=== PATIENT | male | born 1965 | race Caucasian/White ===

== ENCOUNTER 2016-08-04 21:56 | Emergency (ER) | payer BC, OTHER ==
[2016-08-04] MEDS ORDERED: MORPHINE 4 MG/ML 1ML SYRINGE As Ordered ONE (22:32)
[2016-08-04] MEDS ORDERED: ONDANSETRON 4MG/2ML VIAL (J2405) As Ordered ONE (22:32)
[2016-08-04] MEDS ORDERED: ASPIRIN 81 MG CHEW TABLET As Ordered ONE (22:32)
[2016-08-04 22:44] LABS: BASO # 0.1 K/mm3 (0.0-0.2); BASO % 1.1 % (0.0-1.0); EOS # 0.2 K/mm3 (0.0-0.50); LARGE UNSTAINED CELL # 0.3 K/mm3 (0.0-0.4); LARGE UNSTAINED CELL % 3.5 % (0.0-4.0); LYMPH # 2.4 K/mm3 (1.5-4.5); LYMPH % 29.7 % (24.0-44.0); MEAN CORPUSCULAR HEMOGLOBIN 30.1 pg (27.0-33.0); MEAN CORPUSCULAR HGB CONC 33.4 g/dl (32.0-36.5); MEAN CORPUSCULAR VOLUME 90.2 fl (80.0-96.0); MONO # 0.5 K/mm3 (0.0-0.8); NEUTROPHILS % 55.6 % (36.0-66.0); PLATELET COUNT, AUTOMATED 177 k/mm3 (150-450); RED CELL DISTRIBUTION WIDTH 13.9 % (11.5-14.5); WHITE BLOOD COUNT 7.2 K/mm3 (4.0-10.0)
[2016-08-04 23:09] LABS: ANION GAP 6 MEQ/L (8-16); BLOOD UREA NITROGEN 13 MG/DL (7-18); CALCIUM LEVEL 8.5 MG/DL (8.5-10.1); CARBON DIOXIDE LEVEL 31 MEQ/L (21-32); CHLORIDE LEVEL 102 MEQ/L (98-107); CREATININE FOR GFR 0.95 MG/DL (0.70-1.30); GLOMERULAR FILTRATION RATE > 60.0 (>56); GLUCOSE, FASTING 95 MG/DL (70-105); POTASSIUM SERUM 3.7 MEQ/L (3.5-5.1); SODIUM LEVEL 139 MEQ/L (136-145)
[2016-08-05] MEDS ORDERED: NITROGLYCERIN 0.4 MG SUBL TABLET As Ordered ONE (01:39)
--- NOTE | 2016-08-05 01:39 | REP ---
Clinical: Chest pain . Comparison: 04/19/2016 . Technique: PA and lateral. Findings: The mediastinum and cardiac silhouette are normal. The lung dior are clear and without acute consolidation, effusion, or pneumothorax. The skeletal structures are intact and normal. Impression: 1. No acute cardiopulmonary process. Signed by Horace Thompson MD 08/05/2016 01:30 A
[2016-08-05] MEDS ORDERED: ISOVUE-370 76% 100ML VIAL (Q9967) As Ordered ONE (01:45)
[2016-08-05] MEDS ORDERED: HYDROmorphone HCL 1 MG/ML SYRINGE (J1170) As Ordered ONE (02:13)
--- NOTE | 2016-08-05 02:30 | REPUSA ---
CLINICAL INDICATION: Evaluate for pulmonary embolism. COMPARISON: CT chest 04/25/2016. TECHNIQUE: CT pulmonary angiogram was performed with intravenous contrast. 3D/MIPS technique was util ized with multiplanar reconstructions in sagittal and coronal projections. FINDINGS: LINES AND DEVICES: None PULMONARY ARTERY: The pulmonary artery is normal in caliber. There is no evidence of filling defects in the main, right or left main, lobar, segmental, and visualized subsegmental pulmonary arteries. AORTA: Normal in caliber with no evidence of gross dissection or aneurysm. LOWER NECK/THYROID: Thyroid gland is unremarkable. No mass, suspicious cystic lesion, or enlarged carmen nopathy. AXILLA/HILUM/MEDIASTINUM : No enlarged adenopathy, mass, suspicious cystic lesion, or fluid collectio n. HEART: Heart is normal in size without pericardial effusion. AIRWAYS, LUNGS AND PLEURA: No acute infiltrate, effusion, mass, suspicious nodule, or pneumothorax. C entral and visualized peripheral airways are patent. UPPER ABDOMEN: Visualized upper abdominal organs are unremarkable. OSSEOUS STRUCTURES: No fracture or suspicious lesion SOFT TISSUES AND THORACIC WALL : No soft tissue abnormality or hernia. OTHER: No other significant abnormalities. IMPRESSION: No pulmonary embolism.
--- NOTE | 2016-08-05 05:45 | EDDOCDS ---
Physician Documentation [facility] Name: Jose Francisco Velez Age: 50 yrs Sex: Male : 1965 Arrival Date: 08/04/2016 Time: 21:56 Bed 17 Private MD: David Jaimes FPA Disposition: 08/05/16 05:23 Discharged to Home/Self Care. Impression: Chest pain, unspecified. - Condition is Stable. - Discharge Instructions: Panic Attacks, Nonspecific Chest Pain, Generalized Anxiety Disorder, Panic Attacks, [id number]. - Prescriptions for Xanax 0.25 mg Oral Tablet - take 1 tablet by ORAL route every 8 hours As needed MDD: 3 tabs; 20 tablet. - Medication Reconciliation, Local Pharmacy Hours form. - Follow up: David Jaimes; When: Call to arrange an appointment; Reason: Continuance of care. - Problem is an acute exacerbation. - Symptoms have improved. Historical: - Allergies: No known drug Allergies; - Home Meds: 1. aspirin 81 mg Oral TbEC 1 tab once daily (Last dose: 08/04/2016 13:00) 2. Crestor 5 mg Oral tab 1 tab once daily 3. Prilosec 20 mg Oral cpDR 1 cap once daily 4. med for ulcer 5. med for axiety 6. med for angina - PMHx: "spot" between lungs; brain bleed; GERD; Hypercholesterolemia; angina; Anxiety; Ulcers; - PSHx: Vasectomy; Hernia repair; Endoscopy, Upper; - Social history: Smoking status: Patient states was never smoker of tobacco. No barriers to communication noted, The patient speaks fluent [place], Speaks appropriately for age. - Family history: No immediate family members are acutely ill. - : The pt / caregiver states he / she is not on anticoagulants. Home medication list is obtained from the patient. - Exposure Risk Screening:: None identified. Vital Signs: 08/04 21:58 BP 161 / 86; Pulse 87; Resp 18 S; Temp 98.0(O); Pulse Ox 97% on R/A; Weight 108.86 kg / gr2 240 lbs (R); Height 5 ft. 8 in. (172.72 cm) (R); Pain 6/10; 22:32 BP 158 / 102 (auto/); nn1 22:33 Pulse 76 MON; Pulse Ox 96% ; nn1 22:47 BP 155 / 97 (auto/); nn1 22:48 Pulse 74 MON; Pulse Ox 96% ; nn1 23:02 BP 147 / 91 (auto/); nn1 23:03 Pulse 70 MON; Pulse Ox 97% ; nn1 23:17 BP 151 / 93 (auto/); nn1 23:18 Pulse 64 MON; Pulse Ox 96% ; nn1 23:32 BP 153 / 96 (auto/); nn1 23:33 Pulse 66 MON; Pulse Ox 94% ; nn1 23:47 BP 140 / 88 (auto/); nn1 23:48 Pulse 64 MON; Pulse Ox 94% ; 08/05 00:02 BP 142 / 88 (auto/); nn 00:03 Pulse 62 MON; Pulse Ox 94% ; nn1 00:17 BP 143 / 84 (auto/); nn1 00:18 Pulse 64 MON; Pulse Ox 94% ; nn1 00:32 BP 148 / 83 (auto/); nn1 00:33 Pulse 64 MON; Pulse Ox 96% ; nn1 00:47 BP 147 / 82 (auto/); nn1 00:48 Pulse 68 MON; Pulse Ox 94% ; nn1 01:02 BP 148 / 83 (auto/); nn1 01:03 Pulse 66 MON; Pulse Ox 93% ; nn1 01:17 BP 143 / 86 (auto/); nn1 01:18 Pulse 58 MON; Pulse Ox 93% ; nn1 01:32 BP 144 / 87 (auto/); nn1 01:33 Pulse 60 MON; Pulse Ox 96% ; nn1 01:45 BP 153 / 91 (auto/); nn1 01:47 BP 141 / 85 (auto/); nn1 01:47 Pulse 64 MON; Pulse Ox 94% ; nn1 01:48 Pulse 64 MON; Pulse Ox 94% ; nn1 01:48 BP 141 / 85; Pulse 71; nn1 01:55 BP 90 / 54 (auto/); nn1 01:55 Pulse 78 MON; Pulse Ox 93% ; nn1 01:58 BP 90 / 54; Pulse 76; nn1 02:08 Pulse Ox 93% ; nn1 02:09 BP 165 / 79 (auto/); nn1 02:10 BP 146 / 66 (auto/); nn1 02:10 Pulse 74 MON; Pulse Ox 94% ; nn1 02:17 BP 133 / 59 (auto/); nn1 02:17 Pulse 76 MON; Pulse Ox 95% ; nn1 02:32 BP 122 / 63 (auto/); nn1 02:33 Pulse 60 MON; Pulse Ox 92% ; nn1 02:47 BP 129 / 64 (auto/); nn1 02:48 Pulse 56 MON; Pulse Ox 92% ; nn1 03:02 BP 126 / 69 (auto/); nn1 03:02 Pulse 90 MON; Pulse Ox 92% ; nn1 03:17 BP 130 / 77 (auto/); nn1 03:18 Pulse 56 MON; Pulse Ox 92% ; nn1 03:32 BP 134 / 76 (auto/); nn1 03:33 Pulse 56 MON; Pulse Ox 93% ; nn1 03:47 BP 126 / 72 (auto/); nn1 03:48 Pulse 56 MON; Pulse Ox 93% ; nn1 04:02 BP 132 / 79 (auto/); nn1 04:03 Pulse 54 MON; Pulse Ox 94% ; nn1 04:17 BP 125 / 76 (auto/); nn1 04:18 Pulse 52 MON; Pulse Ox 95% ; nn1 04:21 Temp 98.0(TE); mdr 05:41 BP 134 / 84; Pulse 86; Resp 18; Temp 98.0; Pulse Ox 94% on R/A; Pain 2/10; nn1 08/04 21:58 Body Mass Index 36.49 (108.86 kg, 172.72 cm) gr2 MDM: 08/04 22:07 ECG WITH READING ER PHYS+CARDIAG ordered. EDMS 22:27 Aspirin Chewable Tablet 324 mg PO once ordered. mm11 22:27 Power Plant Assistant/Pulse Ox/q 30 min VS ordered. mm11 22:27 IV Saline Lock ordered. mm11 22:27 Rhythm Strip to chart ordered. mm11 22:27 Undress patient appropriately for examination ordered. mm11 22:27 morphine 4 mg IVP every 30 minutes; Document pain score/vitals after each dose (Hold if mm11 SBP < 90mmHg) x2 ordered. 22:27 Ondansetron 4 mg IVP once ordered. mm11 22:28 Basic Metabolic Profile Ordered. EDMS 22:28 CBC with Diff Ordered. EDMS 22:28 Cardiac Injury Profile Ordered. EDMS 22:28 D-Dimer Quant Ordered. EDMS 22:28 Troponin Ordered. EDMS 22:30 Chest, 2 View (pa\\E\\lat) Ordered. EDMS 23:14 Basic Metabolic Profile Reviewed. mm11 23:14 CBC with Diff Reviewed. mm11 23:14 Cardiac Injury Profile Reviewed. mm11 23:14 D-Dimer Quant Reviewed. mm11 23:14 Troponin Reviewed. mm11 23:27 Financial registration complete. pm4 23:51 [facility] Payment Agreement was scanned into [employer] and attached to record. pm4 08/05 00:04 GI Cocktail - (Alum-Mag Hydroxide-Simeth 30 ml, Lidocaine 10 ml, Hyoscyamine 10 ml) PO mm11 once; Pre-mixed 50mL unit dose ordered. 01:25 Repeat EKG (put time details section) ordered. mm11 01:25 Redraw CIP &Troponin (put time in details section) ordered. mm11 01:29 Repeat EKG (put time details section) complete. kb5 01:30 Redraw CIP &Troponin (put time in details section) complete. kb5 01:30 ELECTROCARDIOGRAM ADULT ordered. EDMS 01:31 CARDIAC INJURY PROFILE Ordered. EDMS 01:31 TROPONIN Ordered. EDMS 01:32 Nitrostat 0.4 mg Sublingual every 5 minutes; hold if SBP<90mmHg.Document Pain Score mm11 Response to Each Dose x3 ordered. 01:33 CT Chest Angio R/O PE Ordered. EDMS 01:57 NS 0.9% 1000 ml IV at bolus once ordered. mm11 02:12 Dilaudid - HYDROmorphone 1 mg IVP once ordered. mm11 05:00 CARDIAC INJURY PROFILE Reviewed. mm11 05:00 TROPONIN Reviewed. mm11 05:00 Chest, 2 View (pa\\E\\lat) Reviewed. mm11 05:00 CT Chest Angio R/O PE Reviewed. mm11 Administered Medications: 08/04 22:41 Drug: Aspirin 324 mg [aspirin 81 mg chewable tablet (4 tabs)] Route: PO; nn1 22:41 Drug: morphine 4 mg [morphine 4 mg/mL intravenous cartridge (1 mL)] Route: IVP; Site: nn1 right antecubital; 22:41 Drug: Ondansetron 4 mg [ondansetron HCl 2 mg/mL intravenous solution (2 mL)] Route: nn1 IVP; Site: right antecubital; 08/05 00:08 Drug: GI Cocktail - (Alum-Mag Hydroxide-Simeth Suspension 225 mg-200 mg-25 mg/5 mL 30 nn1 ml, Lidocaine Liquid 2 % 10 ml, Hyoscyamine Liquid 10 ml) Route: PO; 01:41 Drug: Nitrostat 0.4 mg [Nitrostat 0.4 mg sublingual tablet (1 tabs)] Route: Sublingual; nn1 01:46 Drug: Nitrostat 0.4 mg [Nitrostat 0.4 mg sublingual tablet (1 tabs)] Route: Sublingual; nn1 01:48 Follow up: Response: Pain is unchanged, physician notified nn1 01:48 Follow up: BP 141 / 85; Pulse 71 bpm nn1 01:58 Follow up: BP 90 / 54; Pulse 76 bpm nn1 02:15 Drug: Dilaudid - HYDROmorphone 1 mg [hydromorphone 1 mg/mL injection syringe (1 mL)] nn1 Route: IVP; Site: right antecubital; 05:40 Not Given (Physician Discretion): NS 0.9% 1000 ml IV at bolus once nn1 Signatures: Dispatcher [employer] EDMS Najma Roche, RN RN kmg1 Brando Dominguez, BETTING AGENCY COUNTER CLERK BETTING AGENCY COUNTER CLERK kb5 Dean Conti, DO DO mm11 Juan Montenegro RN RN nn1 Yosi Albert, Reg Reg pm4 The chart was reviewed and I authenticate all verbal orders and agree with the evaluation and treatment provided.Attachments: 08/04 23:51 [facility] Payment Agreement pm4 MTDD
--- NOTE | 2016-08-05 05:45 | EDDOCDS ---
Nurse's Notes [facility] Name: Jose Francisco Velez Age: 50 yrs Sex: Male : 1965 Arrival Date: 08/04/2016 Time: 21:56 Bed 17 Private MD: David Jaimes FPA Diagnosis: Chest pain, unspecified Presentation: 08/04 22:07 Presenting complaint: Patient states: 2115 developed midsternal chest pain that kmg1 radiates through to the back and left scapula. Also experienced nausea, SOB, and diaphoresis. Aspirin was taken DIRECTOR GRAPHICS. 1 baby aspirin. Adult Sepsis Screening: The patient does not have new or worsening altered mentation. Patient's respiratory rate is less than 22. Systolic blood pressure is greater than 100. Patient has a qSOFA score of 0- Negative Sepsis Screen. Suicide/Homicide risk assessment- the patient denies having any suicidal and/or homicidal ideations and does not present with any other emotional, behavioral or mental health complaints. Status: Patient is not a vehicle service agent or dependent. Transition of care: patient was not received from another setting of care. 22:07 Acuity: IRIS Level 2 kmg1 22:07 Method Of Arrival: Walkin/Carried/Asstd kmg1 Triage Assessment: 22:12 General: Appears in no apparent distress, comfortable, Behavior is appropriate for age, kmg1 cooperative, pleasant. Pain: Location: left scapular area and mid-sternal area Pain currently is 5 out of 10 on a pain scale. Quality of pain is described as aching, dull. HIV screening NA for this visit Offered previously. Neurological: Level of Consciousness is awake, alert, Oriented to person, place, time. Cardiovascular: Chest pain is described as mild, is located in substernal area radiates back scapula episodes are continuous began 1 hour prior to arrival. Respiratory: Airway is patent Respiratory effort is even, unlabored, Respiratory pattern is regular, symmetrical. Historical: - Allergies: No known drug Allergies; - Home Meds: 1. aspirin 81 mg Oral TbEC 1 tab once daily (Last dose: 08/04/2016 13:00) 2. Crestor 5 mg Oral tab 1 tab once daily 3. Prilosec 20 mg Oral cpDR 1 cap once daily 4. med for ulcer 5. med for axiety 6. med for angina - PMHx: "spot" between lungs; brain bleed; GERD; Hypercholesterolemia; angina; Anxiety; Ulcers; - PSHx: Vasectomy; Hernia repair; Endoscopy, Upper; - Social history: Smoking status: Patient states was never smoker of tobacco. No barriers to communication noted, The patient speaks fluent [place]arag[place], Speaks appropriately for age. - Family history: No immediate family members are acutely ill. - : The pt / caregiver states he / she is not on anticoagulants. Home medication list is obtained from the patient. - Exposure Risk Screening:: None identified. Screenin/19 04:26 Screening information is obtained from the patient. Fall risk: No risks identified. nn1 Assistance ADL's: requires no assistance with activities of daily living. Abuse/DV Screen: The patient / caregiver reports he/she is: not in a situation that causes fear, pain or injury. Nutritional screening: No deficits noted. Advance Directives: Currently, there is no health care proxy. home support is adequate. Assessment: 08/04 22:42 General: Appears uncomfortable, Behavior is appropriate for age, cooperative. Pain: nn1 Location: left supraclavicular area, left clavicle, anterior aspect of left upper chest and left breast and mid-sternal area and left scapular area Pain currently is 7 out of 10 on a pain scale. Pain began 2100 Also complains of nausea, diaphoresis, shortness of breath, lightheadedness, reports feeling very hot "like im burning from the inside". Cardiovascular: Capillary refill < 3 seconds Heart tones S1 S2 present Rhythm is sinus rhythm No ectopy. Chest pain is described as severe, is located in left radiates to left back scapula reports left arm feels weak. Respiratory: Airway is patent Respiratory effort is even, unlabored, Respiratory pattern is regular, symmetrical, Breath sounds are clear bilaterally. GI: Abdomen is non- distended Bowel sounds present X 4 quads. GI: Reports nausea. Derm: Skin is clammy, Skin is normal. 23:40 General: Patient reports chest pain has diminished, states he continues to feel like nn1 he's burning up. Denied second dose of morphine at this time. . 08/05 00:25 General: Patient reports he continues to have pain in left back. No relief following GI nn1 cocktail. States he has not had "burning up" feeling again. Patient calm, appears comfortable. . Neurological: Level of Consciousness is awake, alert, obeys commands, Oriented to person, place, time. Respiratory: Airway is patent Respiratory effort is even, unlabored, Respiratory pattern is regular, symmetrical. Derm: Skin is pink, warm & dry. 01:43 Pain: Location: left scapular area, left clavicle, anterior aspect of left upper chest nn1 and left breast Pain currently is 6 out of 10 on a pain scale. Neurological: Level of Consciousness is awake, alert. Respiratory: Airway is patent Respiratory effort is even, unlabored, Respiratory pattern is regular, symmetrical. 02:17 General: Patients blood pressure dropped following 2nd nitro, therefore 3rd nitro held. nn1 Patient reports feeling better following CT. Patient medicated for pain per orders. Patient given water upon request. . 03:02 General: Patient sleeping when this documenter entered the room. Patient reports pain nn1 medication relieved symptoms. . Pain: Pain currently is 2 out of 10 on a pain scale. Respiratory: Airway is patent Respiratory effort is even, unlabored, Respiratory pattern is regular, symmetrical. Derm: Skin is pink, warm & dry. 04:25 General: Appears in no apparent distress, comfortable, Behavior is appropriate for age, nn1 cooperative. Pain: Pain currently is 2 out of 10 on a pain scale. Neurological: Level of Consciousness is awake, alert, obeys commands, Oriented to person, place, time. Respiratory: Airway is patent Respiratory effort is even, unlabored, Respiratory pattern is regular, symmetrical. Derm: Skin is pink, warm & dry. 05:41 General: Appears in no apparent distress, comfortable, Behavior is appropriate for age, nn1 cooperative, Patient given discharge instructions. Patient instructed not to drive home due to narcotics given. Patient in no distress, reports he is feeling better. . Pain: Location: chest Pain currently is 2 out of 10 on a pain scale. Neurological: Level of Consciousness is awake, alert, obeys commands, Oriented to person, place, time. Respiratory: Airway is patent Respiratory effort is even, unlabored, Respiratory pattern is regular, symmetrical. Derm: Skin is pink, warm & dry. Vital Signs: 08/04 21:58 BP 161 / 86; Pulse 87; Resp 18 S; Temp 98.0(O); Pulse Ox 97% on R/A; Weight 108.86 kg gr2 (R); Height 5 ft. 8 in. (172.72 cm) (R); Pain 6/10; 22:32 BP 158 / 102 (auto/); nn1 22:33 Pulse 76 MON; Pulse Ox 96% ; nn1 22:47 BP 155 / 97 (auto/); nn1 22:48 Pulse 74 MON; Pulse Ox 96% ; nn1 23:02 BP 147 / 91 (auto/); nn1 23:03 Pulse 70 MON; Pulse Ox 97% ; nn1 23:17 BP 151 / 93 (auto/); nn1 23:18 Pulse 64 MON; Pulse Ox 96% ; nn1 23:32 BP 153 / 96 (auto/); nn1 23:33 Pulse 66 MON; Pulse Ox 94% ; nn1 23:47 BP 140 / 88 (auto/); nn1 23:48 Pulse 64 MON; Pulse Ox 94% ; 08/05 00:02 BP 142 / 88 (auto/); nn1 00:03 Pulse 62 MON; Pulse Ox 94% ; nn1 00:17 BP 143 / 84 (auto/); nn1 00:18 Pulse 64 MON; Pulse Ox 94% ; nn1 00:32 BP 148 / 83 (auto/); nn1 00:33 Pulse 64 MON; Pulse Ox 96% ; nn1 00:47 BP 147 / 82 (auto/); nn1 00:48 Pulse 68 MON; Pulse Ox 94% ; nn1 01:02 BP 148 / 83 (auto/); nn1 01:03 Pulse 66 MON; Pulse Ox 93% ; nn1 01:17 BP 143 / 86 (auto/); nn 01:18 Pulse 58 MON; Pulse Ox 93% ; nn1 01:32 BP 144 / 87 (auto/); nn1 01:33 Pulse 60 MON; Pulse Ox 96% ; nn1 01:45 BP 153 / 91 (auto/); nn1 01:47 BP 141 / 85 (auto/); nn1 01:47 Pulse 64 MON; Pulse Ox 94% ; nn1 01:48 Pulse 64 MON; Pulse Ox 94% ; nn1 01:48 BP 141 / 85; Pulse 71; nn1 01:55 BP 90 / 54 (auto/); nn1 01:55 Pulse 78 MON; Pulse Ox 93% ; nn1 01:58 BP 90 / 54; Pulse 76; nn1 02:08 Pulse Ox 93% ; nn1 02:09 BP 165 / 79 (auto/); nn1 02:10 BP 146 / 66 (auto/); nn1 02:10 Pulse 74 MON; Pulse Ox 94% ; nn1 02:17 BP 133 / 59 (auto/); nn1 02:17 Pulse 76 MON; Pulse Ox 95% ; nn1 02:32 BP 122 / 63 (auto/); nn1 02:33 Pulse 60 MON; Pulse Ox 92% ; nn1 02:47 BP 129 / 64 (auto/); nn1 02:48 Pulse 56 MON; Pulse Ox 92% ; nn1 03:02 BP 126 / 69 (auto/); nn1 03:02 Pulse 90 MON; Pulse Ox 92% ; nn1 03:17 BP 130 / 77 (auto/); nn1 03:18 Pulse 56 MON; Pulse Ox 92% ; nn1 03:32 BP 134 / 76 (auto/); nn1 03:33 Pulse 56 MON; Pulse Ox 93% ; nn1 03:47 BP 126 / 72 (auto/); nn1 03:48 Pulse 56 MON; Pulse Ox 93% ; nn1 04:02 BP 132 / 79 (auto/); nn1 04:03 Pulse 54 MON; Pulse Ox 94% ; nn1 04:17 BP 125 / 76 (auto/); nn1 04:18 Pulse 52 MON; Pulse Ox 95% ; nn1 04:21 Temp 98.0(TE); mdr 05:41 BP 134 / 84; Pulse 86; Resp 18; Temp 98.0; Pulse Ox 94% on R/A; Pain 2/10; nn1 08/04 21:58 Body Mass Index 36.49 (108.86 kg, 172.72 cm) gr2 Vitals: 08/04 21:58 Log In Time: August 04, 2016 at 21:58. RN notified that patient meets Red Flag gr2 criteria. ED Course: 21:58 Patient visited by Harvey Fuentes. gr2 21:58 David Jaimes is Private Physician. gr2 21:58 Patient moved to Waiting gr2 21:59 Patient visited by Harvey Fuentes. gr2 21:59 Patient moved to Pre RCE gr2 22:06 Patient moved to 17 km 22:09 Triage Initiated km 22:10 The patient / caregiver is instructed regarding the plan of care and ED course. Cardiac nn1 monitor on. Pulse ox on. NIBP on. 22:14 Patient visited by Edgardo Cruz PCA. mdr 22:14 EKG done. (by ED staff). Reviewed by Dean Conti DO. mdr 22:17 Dean Conti DO is Attending Physician. mm11 22:17 Patient visited by Dean Conti DO. mm11 22:26 Patient visited by Dean Conti DO. mm11 22:39 Basic Metabolic Profile Sent. ka4 22:39 CBC with Diff Sent. ka4 22:39 Cardiac Injury Profile Sent. ka4 22:39 D-Dimer Quant Sent. ka4 22:39 Troponin Sent. ka4 22:39 Inserted saline lock: 20 gauge in right antecubital area and blood collected. The ka4 patient tolerated the procedure well. Labs drawn. (by ED staff). Sent per order to lab. 22:39 Flushed right antecubital saline lock w/ 2 ml NS. ka4 22:40 Patient visited by Samantha Lazcano LPN. ka4 22:41 Patient visited by Samantha Lazcano LPN. ka4 23:40 Patient visited by Juan Montenegro RN. nn1 23:51 [place] [place] was scanned into [email or web address] and attached to record. pm4 08/05 00:15 Patient visited by Juan Montenegro RN. nn1 01:05 Patient visited by Juan Montenegro RN. nn1 01:45 Chest, 2 View (pa\\E\\lat) Returned. EDMS 01:49 Patient visited by Juan Montenegro RN. nn1 02:19 Patient visited by Juan Montenegro RN. nn1 03:02 CT Chest Angio R/O PE Returned. EDMS 03:08 Patient visited by Juan Montenegro RN. nn1 03:48 Patient visited by Juan Montenegro RN. nn1 04:21 Patient visited by Edgardo Cruz PCA. mdr 05:19 Patient visited by Dean Conti DO. mm11 05:23 David Jaimes is Referral Physician. mm11 05:43 No procedures done that require assistance. nn1 Administered Medications: 08/04 22:41 Drug: Aspirin 324 mg [aspirin 81 mg chewable tablet (4 tabs)] Route: PO; nn1 22:41 Drug: morphine 4 mg [morphine 4 mg/mL intravenous cartridge (1 mL)] Route: IVP; Site: nn1 right antecubital; 22:41 Drug: Ondansetron 4 mg [ondansetron HCl 2 mg/mL intravenous solution (2 mL)] Route: nn1 IVP; Site: right antecubital; 08/05 00:08 Drug: GI Cocktail - (Alum-Mag Hydroxide-Simeth Suspension 225 mg-200 mg-25 mg/5 mL 30 nn1 ml, Lidocaine Liquid 2 % 10 ml, Hyoscyamine Liquid 10 ml) Route: PO; 01:41 Drug: Nitrostat 0.4 mg [Nitrostat 0.4 mg sublingual tablet (1 tabs)] Route: Sublingual; nn1 01:46 Drug: Nitrostat 0.4 mg [Nitrostat 0.4 mg sublingual tablet (1 tabs)] Route: Sublingual; nn1 01:48 Follow up: Response: Pain is unchanged, physician notified nn1 01:48 Follow up: BP 141 / 85; Pulse 71 bpm nn1 01:58 Follow up: BP 90 / 54; Pulse 76 bpm nn1 02:15 Drug: Dilaudid - HYDROmorphone 1 mg [hydromorphone 1 mg/mL injection syringe (1 mL)] nn1 Route: IVP; Site: right antecubital; 05:40 Not Given (Physician Discretion): NS 0.9% 1000 ml IV at bolus once nn1 Order Results: Lab Order: Basic Metabolic Profile; SPEC'M 08/04/16 22:36 Test: GLUCOSE, FASTING; Value: 95; Range: 70-105; Units: MG/DL; Status: F Test: BLOOD UREA NITROGEN; Value: 13; Range: 7-18; Units: MG/DL; Status: F Test: CREATININE FOR GFR; Value: 0.95; Range: 0.70-1.30; Units: MG/DL; Status: F Test: GLOMERULAR FILTRATION RATE; Value: > 60.0; Range: >56; Status: F Test: SODIUM LEVEL; Value: 139; Range: 136-145; Units: MEQ/L; Status: F Test: POTASSIUM SERUM; Value: 3.7; Range: 3.5-5.1; Units: MEQ/L; Status: F Test: CHLORIDE LEVEL; Value: 102; Range: 98-107; Units: MEQ/L; Status: F Test: CARBON DIOXIDE LEVEL; Value: 31; Range: 21-32; Units: MEQ/L; Status: F Test: ANION GAP; Value: 6; Range: 8-16; Abnormal: Below low normal; Units: MEQ/L; Status: F Test: CALCIUM LEVEL; Value: 8.5; Range: 8.5-10.1; Units: MG/DL; Status: F Test Note: ; Units are mL/min/1.73 m2 Chronic Kidney Disease Staging per NKF: Stage I & II GFR >=60 Normal to Mildly Decreased Stage III GFR 30-59 Moderately Decreased Stage IV GFR 15-29 Severely Decreased Stage V GFR <15 Very Little GFR Left ESRD GFR <15 on DRAPERY AND UPHOLSTERY MEASURER Lab Order: CBC with Diff; SPEC'M 08/04/16 22:36 Test: WHITE BLOOD COUNT; Value: 7.2; Range: 4.0-10.0; Units: K/mm3; Status: F Test: RED BLOOD COUNT; Value: 5.25; Range: 4.30-6.10; Units: M/mm3; Status: F Test: HEMOGLOBIN; Value: 15.8; Range: 14.0-18.0; Units: g/dl; Status: F Test: HEMATOCRIT; Value: 47.4; Range: 42.0-52.0; Units: %; Status: F Test: MEAN CORPUSCULAR VOLUME; Value: 90.2; Range: 80.0-96.0; Units: fl; Status: F Test: MEAN CORPUSCULAR HEMOGLOBIN; Value: 30.1; Range: 27.0-33.0; Units: pg; Status: F Test: MEAN CORPUSCULAR HGB CONC; Value: 33.4; Range: 32.0-36.5; Units: g/dl; Status: F Test: RED CELL DISTRIBUTION WIDTH; Value: 13.9; Range: 11.5-14.5; Units: %; Status: F Test: PLATELET COUNT, AUTOMATED; Value: 177; Range: 150-450; Units: k/mm3; Status: F Test: NEUTROPHILS %; Value: 55.6; Range: 36.0-66.0; Units: %; Status: F Test: LYMPH %; Value: 29.7; Range: 24.0-44.0; Units: %; Status: F Test: MONO %; Value: 7.0; Range: 0.0-5.0; Abnormal: Above high normal; Units: %; Status: F Test: EOS %; Value: 3.0; Range: 0.0-3.0; Units: %; Status: F Test: BASO %; Value: 1.1; Range: 0.0-1.0; Abnormal: Above high normal; Units: %; Status: F Test: LARGE UNSTAINED CELL %; Value: 3.5; Range: 0.0-4.0; Units: %; Status: F Test: NEUTROPHILS #; Value: 4.0; Range: 1.8-7.7; Units: K/mm3; Status: F Test: LYMPH #; Value: 2.4; Range: 1.5-4.5; Units: K/mm3; Status: F Test: MONO #; Value: 0.5; Range: 0.0-0.8; Units: K/mm3; Status: F Test: EOS #; Value: 0.2; Range: 0.0-0.50; Units: K/mm3; Status: F Test: BASO #; Value: 0.1; Range: 0.0-0.2; Units: K/mm3; Status: F Test: LARGE UNSTAINED CELL #; Value: 0.3; Range: 0.0-0.4; Units: K/mm3; Status: F Lab Order: Cardiac Injury Profile; SPEC'M 08/04/16 22:36 Test: CPK CREATINE PHOSPHOKINASE; Value: 70; Range: 39-308; Units: U/L; Status: F Test: CK-MB VALUE MASS; Value: 1.5; Range: 0.0-3.6; Units: NG/ML; Status: F Test: MB/CK RELATIVE INDEX; Value: 2.14; Range: < OR =4; Status: F Test Note: ; DIAGNOSIS CRITERIA MMB ng/ml Relative Index (RI) NON-AMI < or = 5 N/A DANIELLE ZONE > 5 < or = 4 AMI > 5 > 4 Lab Order: D-Dimer Quant; [facility] 08/04/16 22:36 Test: D-DIMER QUANT; Value: 380.3; Range: <500; Units: ng/ml; Status: F Lab Order: Troponin; [facility] 08/04/16 22:36 Test: TROPONIN I; Value: < 0.02; Range: < 0.10; Units: NG/ML; Status: F Test Note: ; Troponin I Reference Interval for [employer]: 99th Percentile= 0.00-0.045 ng/ml Risk Stratification: <= 0.10 ng/ml Decreased Risk for Adverse Clinical Events. 0.10-1.50 ng/ml Increased Risk for Adverse Clinical Events. Evaluation of additional criterion and/or repeat testing in 2-6 hours is suggested to rule out myocardial damage. >= 1.50 ng/ml Indicative of Myocardial Injury. Lab Order: CARDIAC INJURY PROFILE; [facility] 08/05/16 04:23 Test: CPK CREATINE PHOSPHOKINASE; Value: 62; Range: 39-308; Units: U/L; Status: F Test: CK-MB VALUE MASS; Value: 1.4; Range: 0.0-3.6; Units: NG/ML; Status: F Test: MB/CK RELATIVE INDEX; Value: 2.25; Range: < OR =4; Status: F Test Note: ; DIAGNOSIS CRITERIA MMB ng/ml Relative Index (RI) NON-AMI < or = 5 N/A DANIELLE ZONE > 5 < or = 4 AMI > 5 > 4 Lab Order: TROPONIN; [facility] 08/05/16 04:23 Test: TROPONIN I; Value: < 0.02; Range: < 0.10; Units: NG/ML; Status: F Test Note: ; Troponin I Reference Interval for [employer]: 99th Percentile= 0.00-0.045 ng/ml Risk Stratification: <= 0.10 ng/ml Decreased Risk for Adverse Clinical Events. 0.10-1.50 ng/ml Increased Risk for Adverse Clinical Events. Evaluation of additional criterion and/or repeat testing in 2-6 hours is suggested to rule out myocardial damage. >= 1.50 ng/ml Indicative of Myocardial Injury. Radiology Order: Chest, 2 View (pa\\E\\lat) Test: Chest, 2 View (pa\\E\\lat) REASON FOR EXAMINATION: Chest Pain; Clinical: Chest pain .; ; Comparison: 04/19/2016 .; ; Technique: PA and lateral.; ; Findings:; The mediastinum and cardiac silhouette are normal. The lung dior are clear and; without acute consolidation, effusion, or pneumothorax. The skeletal structures; are intact and normal.; ; Impression:; 1. No acute cardiopulmonary process.; ; ; Signed by; Horace Thompson MD 08/05/2016 01:30 A; Radiology Order: CT Chest Angio R/O PE Test: CT Chest Angio R/O PE REASON FOR EXAMINATION: r/o dissection; ; CLINICAL INDICATION: Evaluate for pulmonary embolism.; COMPARISON: CT chest 04/25/2016.; TECHNIQUE: CT pulmonary angiogram was performed with intravenous contrast. 3D/MIPS technique was util; ized with multiplanar reconstructions in sagittal and coronal projections.; FINDINGS:; LINES AND DEVICES: None; PULMONARY ARTERY: The pulmonary artery is normal in caliber. There is no evidence of filling defects; in the main, right or left main, lobar, segmental, and visualized subsegmental pulmonary arteries.; AORTA: Normal in caliber with no evidence of gross dissection or aneurysm.; LOWER NECK/THYROID: Thyroid gland is unremarkable. No mass, suspicious cystic lesion, or enlarged carmen; nopathy.; AXILLA/HILUM/MEDIASTINUM : No enlarged adenopathy, mass, suspicious cystic lesion, or fluid collectio; n.; HEART: Heart is normal in size without pericardial effusion.; AIRWAYS, LUNGS AND PLEURA: No acute infiltrate, effusion, mass, suspicious nodule, or pneumothorax. C; entral and visualized peripheral airways are patent.; UPPER ABDOMEN: Visualized upper abdominal organs are unremarkable.; OSSEOUS STRUCTURES: No fracture or suspicious lesion; SOFT TISSUES AND THORACIC WALL : No soft tissue abnormality or hernia.; OTHER: No other significant abnormalities.; IMPRESSION:; No pulmonary embolism.; ; Outcome: 05:23 Discharge ordered by Provider. mm11 05:42 Discharge Assessment: Patient awake, alert and oriented x 3. No cognitive and/or nn1 functional deficits noted. Patient verbalized understanding of disposition instructions. patient administered narcotics - yes. Pt provided with safe discharge. The following High Risk Discharge criteria are identified: None. Discharged to home ambulatory. Condition: stable Condition: improved. Discharge instructions given to patient, Instructed on discharge instructions, follow up and referral plans. medication usage, no driving heavy equipment, Demonstrated understanding of instructions, medications, Pt was receptive of discharge instructions/ teaching. Property :Personal belongings accompany Pt. 05:43 CT Study completed. nn1 05:44 Patient left the ED. nn1 Signatures: Dispatcher [employer] EDMS Najma Roche, RN RN kmg1 Dean Conti, DO DO mm11 Harevy Fuentes gr2 Samantha Lazcano,CORRECTIONAL MEDICINE PHYSICIAN CORRECTIONAL MEDICINE PHYSICIAN ka4 Juan Montenegro RN RN nn1 Edgardo Cruz, [employer] REPRESENTATIVE Yosi Diane, Reg Reg pm4 Corrections: (The following items were deleted from the chart) 05:44 05:41 General: Appears in no apparent distress, comfortable, Behavior is appropriate nn1 for age, cooperative, nn1 MTDD
--- NOTE | 2016-08-05 08:36 | ECGEPIP ---
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
--- NOTE | 2016-08-05 08:43 | ECGEPIP ---
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
--- NOTE | 2016-08-07 06:45 | EDDOCDS ---
Physician Documentation [facility] Name: Jose Francisco Velez Age: 50 yrs Sex: Male : 1965 Arrival Date: 08/04/2016 Time: 21:56 Bed 17 Private MD: David Jaimes FPA Disposition: 08/05/16 05:23 Discharged to Home/Self Care. Impression: Chest pain, unspecified. - Condition is Stable. - Discharge Instructions: Panic Attacks, Nonspecific Chest Pain, Generalized Anxiety Disorder, Panic Attacks, [id number]. - Prescriptions for Xanax 0.25 mg Oral Tablet - take 1 tablet by ORAL route every 8 hours As needed MDD: 3 tabs; 20 tablet. - Medication Reconciliation, Local Pharmacy Hours form. - Work Release Form - 2 day (08/05/16 05:47). sls1 - Follow up: David Jaimes; When: Call to arrange an appointment; Reason: Continuance of care. - Problem is an acute exacerbation. - Symptoms have improved. Historical: - Allergies: No known drug Allergies; - Home Meds: 1. aspirin 81 mg Oral TbEC 1 tab once daily (Last dose: 08/04/2016 13:00) 2. Crestor 5 mg Oral tab 1 tab once daily 3. Prilosec 20 mg Oral cpDR 1 cap once daily 4. med for ulcer 5. med for axiety 6. med for angina - PMHx: "spot" between lungs; brain bleed; GERD; Hypercholesterolemia; angina; Anxiety; Ulcers; - PSHx: Vasectomy; Hernia repair; Endoscopy, Upper; - Social history: Smoking status: Patient states was never smoker of tobacco. No barriers to communication noted, The patient speaks fluent [place], Speaks appropriately for age. - Family history: No immediate family members are acutely ill. - : The pt / caregiver states he / she is not on anticoagulants. Home medication list is obtained from the patient. - Exposure Risk Screening:: None identified. Vital Signs: 08/04 21:58 BP 161 / 86; Pulse 87; Resp 18 S; Temp 98.0(O); Pulse Ox 97% on R/A; Weight 108.86 kg / gr2 240 lbs (R); Height 5 ft. 8 in. (172.72 cm) (R); Pain 6/10; 22:32 BP 158 / 102 (auto/); nn1 22:33 Pulse 76 MON; Pulse Ox 96% ; nn1 22:47 BP 155 / 97 (auto/); nn1 22:48 Pulse 74 MON; Pulse Ox 96% ; nn1 23:02 BP 147 / 91 (auto/); nn1 23:03 Pulse 70 MON; Pulse Ox 97% ; nn1 23:17 BP 151 / 93 (auto/); nn1 23:18 Pulse 64 MON; Pulse Ox 96% ; nn1 23:32 BP 153 / 96 (auto/); nn1 23:33 Pulse 66 MON; Pulse Ox 94% ; nn1 23:47 BP 140 / 88 (auto/); nn1 23:48 Pulse 64 MON; Pulse Ox 94% ; 08/05 00:02 BP 142 / 88 (auto/); nn1 00:03 Pulse 62 MON; Pulse Ox 94% ; nn1 00:17 BP 143 / 84 (auto/); nn1 00:18 Pulse 64 MON; Pulse Ox 94% ; nn1 00:32 BP 148 / 83 (auto/); nn1 00:33 Pulse 64 MON; Pulse Ox 96% ; nn1 00:47 BP 147 / 82 (auto/); nn1 00:48 Pulse 68 MON; Pulse Ox 94% ; nn1 01:02 BP 148 / 83 (auto/); nn1 01:03 Pulse 66 MON; Pulse Ox 93% ; nn1 01:17 BP 143 / 86 (auto/); nn1 01:18 Pulse 58 MON; Pulse Ox 93% ; nn1 01:32 BP 144 / 87 (auto/); nn1 01:33 Pulse 60 MON; Pulse Ox 96% ; nn1 01:45 BP 153 / 91 (auto/); nn1 01:47 BP 141 / 85 (auto/); nn1 01:47 Pulse 64 MON; Pulse Ox 94% ; nn1 01:48 Pulse 64 MON; Pulse Ox 94% ; nn1 01:48 BP 141 / 85; Pulse 71; nn1 01:55 BP 90 / 54 (auto/); nn1 01:55 Pulse 78 MON; Pulse Ox 93% ; nn1 01:58 BP 90 / 54; Pulse 76; nn1 02:08 Pulse Ox 93% ; nn1 02:09 BP 165 / 79 (auto/); nn1 02:10 BP 146 / 66 (auto/); nn1 02:10 Pulse 74 MON; Pulse Ox 94% ; nn1 02:17 BP 133 / 59 (auto/); nn1 02:17 Pulse 76 MON; Pulse Ox 95% ; nn1 02:32 BP 122 / 63 (auto/); nn1 02:33 Pulse 60 MON; Pulse Ox 92% ; nn1 02:47 BP 129 / 64 (auto/); nn1 02:48 Pulse 56 MON; Pulse Ox 92% ; nn1 03:02 BP 126 / 69 (auto/); nn1 03:02 Pulse 90 MON; Pulse Ox 92% ; nn1 03:17 BP 130 / 77 (auto/); nn1 03:18 Pulse 56 MON; Pulse Ox 92% ; nn1 03:32 BP 134 / 76 (auto/); nn1 03:33 Pulse 56 MON; Pulse Ox 93% ; nn1 03:47 BP 126 / 72 (auto/); nn1 03:48 Pulse 56 MON; Pulse Ox 93% ; nn1 04:02 BP 132 / 79 (auto/); nn1 04:03 Pulse 54 MON; Pulse Ox 94% ; nn1 04:17 BP 125 / 76 (auto/); nn1 04:18 Pulse 52 MON; Pulse Ox 95% ; nn1 04:21 Temp 98.0(TE); mdr 05:41 BP 134 / 84; Pulse 86; Resp 18; Temp 98.0; Pulse Ox 94% on R/A; Pain 2/10; nn1 08/04 21:58 Body Mass Index 36.49 (108.86 kg, 172.72 cm) gr2 MDM: 08/04 22:07 ECG WITH READING ER PHYS+CARDIAG ordered. EDMS 22:27 Aspirin Chewable Tablet 324 mg PO once ordered. mm11 22:27 Jewelry Enameler/Pulse Ox/q 30 min VS ordered. mm11 22:27 IV Saline Lock ordered. mm11 22:27 Rhythm Strip to chart ordered. mm11 22:27 Undress patient appropriately for examination ordered. mm11 22:27 morphine 4 mg IVP every 30 minutes; Document pain score/vitals after each dose (Hold if mm11 SBP < 90mmHg) x2 ordered. 22:27 Ondansetron 4 mg IVP once ordered. mm11 22:28 Basic Metabolic Profile Ordered. EDMS 22:28 CBC with Diff Ordered. EDMS 22:28 Cardiac Injury Profile Ordered. EDMS 22:28 D-Dimer Quant Ordered. EDMS 22:28 Troponin Ordered. EDMS 22:30 Chest, 2 View (pa\\E\\lat) Ordered. EDMS 23:14 Basic Metabolic Profile Reviewed. mm11 23:14 CBC with Diff Reviewed. mm11 23:14 Cardiac Injury Profile Reviewed. mm11 23:14 D-Dimer Quant Reviewed. mm11 23:14 Troponin Reviewed. mm11 23:27 Financial registration complete. pm4 23:51 [facility] [place] Payment Agreement was scanned into [employer] and attached to record. pm4 08/05 00:04 GI Cocktail - (Alum-Mag Hydroxide-Simeth 30 ml, Lidocaine 10 ml, Hyoscyamine 10 ml) PO mm11 once; Pre-mixed 50mL unit dose ordered. 01:25 Repeat EKG (put time details section) ordered. mm11 01:25 Redraw CIP &Troponin (put time in details section) ordered. mm11 01:29 Repeat EKG (put time details section) complete. kb5 01:30 Redraw CIP &Troponin (put time in details section) complete. kb5 01:30 ELECTROCARDIOGRAM ADULT ordered. EDMS 01:31 CARDIAC INJURY PROFILE Ordered. EDMS 01:31 TROPONIN Ordered. EDMS 01:32 Nitrostat 0.4 mg Sublingual every 5 minutes; hold if SBP<90mmHg.Document Pain Score mm11 Response to Each Dose x3 ordered. 01:33 CT Chest Angio R/O PE Ordered. EDMS 01:57 NS 0.9% 1000 ml IV at bolus once ordered. mm11 02:12 Dilaudid - HYDROmorphone 1 mg IVP once ordered. mm11 05:00 CARDIAC INJURY PROFILE Reviewed. mm11 05:00 TROPONIN Reviewed. mm11 05:00 Chest, 2 View (pa\\E\\lat) Reviewed. mm11 05:00 CT Chest Angio R/O PE Reviewed. mm11 09:44 T-Sheet-- Draft Copy was scanned into [employer] and attached to record. gb 09:44 ECG/EKG was scanned into [employer] and attached to record. gb 09:45 Trend VS was scanned into [employer] and attached to record. gb 09:45 Radiology Report was scanned into [employer] and attached to record. gb Administered Medications: 01/18 22:41 Drug: Aspirin 324 mg [aspirin 81 mg chewable tablet (4 tabs)] Route: PO; nn1 22:41 Drug: morphine 4 mg [morphine 4 mg/mL intravenous cartridge (1 mL)] Route: IVP; Site: nn1 right antecubital; 22:41 Drug: Ondansetron 4 mg [ondansetron HCl 2 mg/mL intravenous solution (2 mL)] Route: nn1 IVP; Site: right antecubital; 08/05 00:08 Drug: GI Cocktail - (Alum-Mag Hydroxide-Simeth Suspension 225 mg-200 mg-25 mg/5 mL 30 nn1 ml, Lidocaine Liquid 2 % 10 ml, Hyoscyamine Liquid 10 ml) Route: PO; 01:41 Drug: Nitrostat 0.4 mg [Nitrostat 0.4 mg sublingual tablet (1 tabs)] Route: Sublingual; nn1 01:46 Drug: Nitrostat 0.4 mg [Nitrostat 0.4 mg sublingual tablet (1 tabs)] Route: Sublingual; nn1 01:48 Follow up: Response: Pain is unchanged, physician notified nn1 01:48 Follow up: BP 141 / 85; Pulse 71 bpm nn1 01:58 Follow up: BP 90 / 54; Pulse 76 bpm nn1 02:15 Drug: Dilaudid - HYDROmorphone 1 mg [hydromorphone 1 mg/mL injection syringe (1 mL)] nn1 Route: IVP; Site: right antecubital; 05:40 Not Given (Physician Discretion): NS 0.9% 1000 ml IV at bolus once nn1 Signatures: Dispatcher [employer] EDMS Najma Roche, RN RN kmg1 Mirna Lewis, Reg Reg gb Brando Dominguez, ACCOUNT RELATIONSHIP MANAGER ACCOUNT RELATIONSHIP MANAGER kb5 Dean Conti, DO mm11 Juan MontenegroRN RN nn1 Yosi Albert, Reg Reg pm4 Yaquelin Hinojosa RN sls1 The chart was reviewed and I authenticate all verbal orders and agree with the evaluation and treatment provided.Attachments: 08/04 23:51 [facility] [place] Payment Agreement pm4 08/05 09:44 T-Sheet-- Draft Copy 09:44 ECG/EKG gb Chart Complete MTDD
--- NOTE | 2016-08-07 06:45 | EDDOCDS ---
Nurse's Notes [facility] Name: Marine Soto Age: 50 yrs Sex: Male : 1965 Arrival Date: 08/04/2016 Time: 21:56 Bed 17 Private MD: David Jaimes FPA Diagnosis: Chest pain, unspecified Presentation: 08/04 22:07 Presenting complaint: Patient states: 2115 developed midsternal chest pain that kmg1 radiates through to the back and left scapula. Also experienced nausea, SOB, and diaphoresis. 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 1 baby aspirin. Adult Sepsis Screening: The patient does not have new or worsening altered mentation. Patient's respiratory rate is less than 22. Systolic blood pressure is greater than 100. Patient has a qSOFA score of 0- Negative Sepsis Screen. Suicide/Homicide risk assessment- the patient denies having any suicidal and/or homicidal ideations and does not present with any other emotional, behavioral or mental health complaints. Status: Patient is not a service tech/welder or dependent. Transition of care: patient was not received from another setting of care. 22:07 Acuity: IRIS Level 2 kmg1 22:07 Method Of Arrival: Walkin/Carried/Asstd kmg1 Triage Assessment: 22:12 General: Appears in no apparent distress, comfortable, Behavior is appropriate for age, kmg1 cooperative, pleasant. Pain: Location: left scapular area and mid-sternal area Pain currently is 5 out of 10 on a pain scale. Quality of pain is described as aching, dull. HIV screening NA for this visit Offered previously. Neurological: Level of Consciousness is awake, alert, Oriented to person, place, time. Cardiovascular: Chest pain is described as mild, is located in substernal area radiates back scapula episodes are continuous began 1 hour prior to arrival. Respiratory: Airway is patent Respiratory effort is even, unlabored, Respiratory pattern is regular, symmetrical. Historical: - Allergies: No known drug Allergies; - Home Meds: 1. aspirin 81 mg Oral TbEC 1 tab once daily (Last dose: 08/04/2016 13:00) 2. Crestor 5 mg Oral tab 1 tab once daily 3. Prilosec 20 mg Oral cpDR 1 cap once daily 4. med for ulcer 5. med for axiety 6. med for angina - PMHx: "spot" between lungs; brain bleed; GERD; Hypercholesterolemia; angina; Anxiety; Ulcers; - PSHx: Vasectomy; Hernia repair; Endoscopy, Upper; - Social history: Smoking status: Patient states was never smoker of tobacco. No barriers to communication noted, The patient speaks fluent Malian, Speaks appropriately for age. - Family history: No immediate family members are acutely ill. - : The pt / caregiver states he / she is not on anticoagulants. Home medication list is obtained from the patient. - Exposure Risk Screening:: None identified. Screenin/19 04:26 Screening information is obtained from the patient. Fall risk: No risks identified. nn1 Assistance ADL's: requires no assistance with activities of daily living. Abuse/DV Screen: The patient / caregiver reports he/she is: not in a situation that causes fear, pain or injury. Nutritional screening: No deficits noted. Advance Directives: Currently, there is no health care proxy. home support is adequate. Assessment: 08/04 22:42 General: Appears uncomfortable, Behavior is appropriate for age, cooperative. Pain: nn1 Location: left supraclavicular area, left clavicle, anterior aspect of left upper chest and left breast and mid-sternal area and left scapular area Pain currently is 7 out of 10 on a pain scale. Pain began 2100 Also complains of nausea, diaphoresis, shortness of breath, lightheadedness, reports feeling very hot "like im burning from the inside". Cardiovascular: Capillary refill < 3 seconds Heart tones S1 S2 present Rhythm is sinus rhythm No ectopy. Chest pain is described as severe, is located in left radiates to left back scapula reports left arm feels weak. Respiratory: Airway is patent Respiratory effort is even, unlabored, Respiratory pattern is regular, symmetrical, Breath sounds are clear bilaterally. GI: Abdomen is non- distended Bowel sounds present X 4 quads. GI: Reports nausea. Derm: Skin is clammy, Skin is normal. 23:40 General: Patient reports chest pain has diminished, states he continues to feel like nn1 he's burning up. Denied second dose of morphine at this time. . 08/05 00:25 General: Patient reports he continues to have pain in left back. No relief following GI nn1 cocktail. States he has not had "burning up" feeling again. Patient calm, appears comfortable. . Neurological: Level of Consciousness is awake, alert, obeys commands, Oriented to person, place, time. Respiratory: Airway is patent Respiratory effort is even, unlabored, Respiratory pattern is regular, symmetrical. Derm: Skin is pink, warm & dry. 01:43 Pain: Location: left scapular area, left clavicle, anterior aspect of left upper chest nn1 and left breast Pain currently is 6 out of 10 on a pain scale. Neurological: Level of Consciousness is awake, alert. Respiratory: Airway is patent Respiratory effort is even, unlabored, Respiratory pattern is regular, symmetrical. 02:17 General: Patients blood pressure dropped following 2nd nitro, therefore 3rd nitro held. nn1 Patient reports feeling better following CT. Patient medicated for pain per orders. Patient given water upon request. . 03:02 General: Patient sleeping when this documenter entered the room. Patient reports pain nn1 medication relieved symptoms. . Pain: Pain currently is 2 out of 10 on a pain scale. Respiratory: Airway is patent Respiratory effort is even, unlabored, Respiratory pattern is regular, symmetrical. Derm: Skin is pink, warm & dry. 04:25 General: Appears in no apparent distress, comfortable, Behavior is appropriate for age, nn1 cooperative. Pain: Pain currently is 2 out of 10 on a pain scale. Neurological: Level of Consciousness is awake, alert, obeys commands, Oriented to person, place, time. Respiratory: Airway is patent Respiratory effort is even, unlabored, Respiratory pattern is regular, symmetrical. Derm: Skin is pink, warm & dry. 05:41 General: Appears in no apparent distress, comfortable, Behavior is appropriate for age, nn1 cooperative, Patient given discharge instructions. Patient instructed not to drive home due to narcotics given. Patient in no distress, reports he is feeling better. . Pain: Location: chest Pain currently is 2 out of 10 on a pain scale. Neurological: Level of Consciousness is awake, alert, obeys commands, Oriented to person, place, time. Respiratory: Airway is patent Respiratory effort is even, unlabored, Respiratory pattern is regular, symmetrical. Derm: Skin is pink, warm & dry. Vital Signs: 08/04 21:58 BP 161 / 86; Pulse 87; Resp 18 S; Temp 98.0(O); Pulse Ox 97% on R/A; Weight 108.86 kg gr2 (R); Height 5 ft. 8 in. (172.72 cm) (R); Pain 6/10; 22:32 BP 158 / 102 (auto/); nn1 22:33 Pulse 76 MON; Pulse Ox 96% ; nn1 22:47 BP 155 / 97 (auto/); nn1 22:48 Pulse 74 MON; Pulse Ox 96% ; nn1 23:02 BP 147 / 91 (auto/); nn1 23:03 Pulse 70 MON; Pulse Ox 97% ; nn1 23:17 BP 151 / 93 (auto/); nn1 23:18 Pulse 64 MON; Pulse Ox 96% ; nn1 23:32 BP 153 / 96 (auto/); nn1 23:33 Pulse 66 MON; Pulse Ox 94% ; nn1 23:47 BP 140 / 88 (auto/); nn1 23:48 Pulse 64 MON; Pulse Ox 94% ; 08/05 00:02 BP 142 / 88 (auto/); nn1 00:03 Pulse 62 MON; Pulse Ox 94% ; nn1 00:17 BP 143 / 84 (auto/); nn1 00:18 Pulse 64 MON; Pulse Ox 94% ; nn1 00:32 BP 148 / 83 (auto/); nn1 00:33 Pulse 64 MON; Pulse Ox 96% ; nn1 00:47 BP 147 / 82 (auto/); nn1 00:48 Pulse 68 MON; Pulse Ox 94% ; nn1 01:02 BP 148 / 83 (auto/); nn1 01:03 Pulse 66 MON; Pulse Ox 93% ; nn1 01:17 BP 143 / 86 (auto/); nn 01:18 Pulse 58 MON; Pulse Ox 93% ; nn1 01:32 BP 144 / 87 (auto/); nn1 01:33 Pulse 60 MON; Pulse Ox 96% ; nn1 01:45 BP 153 / 91 (auto/); nn1 01:47 BP 141 / 85 (auto/); nn1 01:47 Pulse 64 MON; Pulse Ox 94% ; nn1 01:48 Pulse 64 MON; Pulse Ox 94% ; nn1 01:48 BP 141 / 85; Pulse 71; nn1 01:55 BP 90 / 54 (auto/); nn1 01:55 Pulse 78 MON; Pulse Ox 93% ; nn1 01:58 BP 90 / 54; Pulse 76; nn1 02:08 Pulse Ox 93% ; nn1 02:09 BP 165 / 79 (auto/); nn1 02:10 BP 146 / 66 (auto/); nn1 02:10 Pulse 74 MON; Pulse Ox 94% ; nn1 02:17 BP 133 / 59 (auto/); nn1 02:17 Pulse 76 MON; Pulse Ox 95% ; nn1 02:32 BP 122 / 63 (auto/); nn1 02:33 Pulse 60 MON; Pulse Ox 92% ; nn1 02:47 BP 129 / 64 (auto/); nn1 02:48 Pulse 56 MON; Pulse Ox 92% ; nn1 03:02 BP 126 / 69 (auto/); nn1 03:02 Pulse 90 MON; Pulse Ox 92% ; nn1 03:17 BP 130 / 77 (auto/); nn1 03:18 Pulse 56 MON; Pulse Ox 92% ; nn1 03:32 BP 134 / 76 (auto/); nn1 03:33 Pulse 56 MON; Pulse Ox 93% ; nn1 03:47 BP 126 / 72 (auto/); nn1 03:48 Pulse 56 MON; Pulse Ox 93% ; nn1 04:02 BP 132 / 79 (auto/); nn1 04:03 Pulse 54 MON; Pulse Ox 94% ; nn1 04:17 BP 125 / 76 (auto/); nn1 04:18 Pulse 52 MON; Pulse Ox 95% ; nn1 04:21 Temp 98.0(TE); mdr 05:41 BP 134 / 84; Pulse 86; Resp 18; Temp 98.0; Pulse Ox 94% on R/A; Pain 2/10; nn1 08/04 21:58 Body Mass Index 36.49 (108.86 kg, 172.72 cm) gr2 Vitals: 08/04 21:58 Log In Time: August 04, 2016 at 21:58. RN notified that patient meets Red Flag gr2 criteria. ED Course: 21:58 Patient visited by Harvey Fuentes. gr2 21:58 David Jaimes is Private Physician. gr2 21:58 Patient moved to Waiting gr2 21:59 Patient visited by Harvey Fuentes. gr2 21:59 Patient moved to Pre RCE gr2 22:06 Patient moved to 17 km 22:09 Triage Initiated km 22:10 The patient / caregiver is instructed regarding the plan of care and ED course. Cardiac nn1 monitor on. Pulse ox on. NIBP on. 22:14 Patient visited by Edgardo Cruz PCA. mdr 22:14 EKG done. (by ED staff). Reviewed by Chloe Conti DO. mdr 22:17 Chloe Conti DO is Attending Physician. mm11 22:17 Patient visited by Chloe Conti DO. mm11 22:26 Patient visited by Chloe Conti DO. mm11 22:39 Basic Metabolic Profile Sent. ka4 22:39 CBC with Diff Sent. ka4 22:39 Cardiac Injury Profile Sent. ka4 22:39 D-Dimer Quant Sent. ka4 22:39 Troponin Sent. ka4 22:39 Inserted saline lock: 20 gauge in right antecubital area and blood collected. The ka4 patient tolerated the procedure well. Labs drawn. (by ED staff). Sent per order to lab. 22:39 Flushed right antecubital saline lock w/ 2 ml NS. ka4 22:40 Patient visited by Samantha Lazcano LPN. ka4 22:41 Patient visited by Samantha Lazcano LPN. ka4 23:40 Patient visited by Juan Montenegro RN. nn1 23:51 [facility] Payment Agreement was scanned into [employer] and attached to record. pm4 01/19 00:15 Patient visited by Juan Montenegro RN. nn1 01:05 Patient visited by Juan Montenegro RN. nn1 01:45 Chest, 2 View (pa\\E\\lat) Returned. EDMS 01:49 Patient visited by Juan Montenegro RN. nn1 02:19 Patient visited by Juan Montenegro RN. nn1 03:02 CT Chest Angio R/O PE Returned. EDMS 03:08 Patient visited by Juan Montenegro RN. nn1 03:48 Patient visited by Juan Montenegro RN. nn1 04:21 Patient visited by Edgardo Cruz PCA. mdr 05:19 Patient visited by Chloe Conti DO. mm11 05:23 David Jaimes is Referral Physician. mm11 05:43 No procedures done that require assistance. nn1 09:01 EKG-ADULT Returned. EDMS 09:01 ELECTROCARDIOGRAM ADULT Returned. EDMS 09:44 T-Sheet-- Draft Copy was scanned into [employer] and attached to record. gb 09:44 ECG/EKG was scanned into [employer] and attached to record. gb 09:45 Trend VS was scanned into [employer] and attached to record. gb 09:45 Radiology Report was scanned into [employer] and attached to record. gb Administered Medications: 08/04 22:41 Drug: Aspirin 324 mg [aspirin 81 mg chewable tablet (4 tabs)] Route: PO; nn1 22:41 Drug: morphine 4 mg [morphine 4 mg/mL intravenous cartridge (1 mL)] Route: IVP; Site: nn1 right antecubital; 22:41 Drug: Ondansetron 4 mg [ondansetron HCl 2 mg/mL intravenous solution (2 mL)] Route: nn1 IVP; Site: right antecubital; 08/05 00:08 Drug: GI Cocktail - (Alum-Mag Hydroxide-Simeth Suspension 225 mg-200 mg-25 mg/5 mL 30 nn1 ml, Lidocaine Liquid 2 % 10 ml, Hyoscyamine Liquid 10 ml) Route: PO; 01:41 Drug: Nitrostat 0.4 mg [Nitrostat 0.4 mg sublingual tablet (1 tabs)] Route: Sublingual; nn1 01:46 Drug: Nitrostat 0.4 mg [Nitrostat 0.4 mg sublingual tablet (1 tabs)] Route: Sublingual; nn1 01:48 Follow up: Response: Pain is unchanged, physician notified nn1 01:48 Follow up: BP 141 / 85; Pulse 71 bpm nn1 01:58 Follow up: BP 90 / 54; Pulse 76 bpm nn1 02:15 Drug: Dilaudid - HYDROmorphone 1 mg [hydromorphone 1 mg/mL injection syringe (1 mL)] nn1 Route: IVP; Site: right antecubital; 05:40 Not Given (Physician Discretion): NS 0.9% 1000 ml IV at bolus once nn1 Attachments: 09:45 Trend VS gb Order Results: Lab Order: Basic Metabolic Profile; SPEC'M 08/04/16 22:36 Test: GLUCOSE, FASTING; Value: 95; Range: 70-105; Units: MG/DL; Status: F Test: BLOOD UREA NITROGEN; Value: 13; Range: 7-18; Units: MG/DL; Status: F Test: CREATININE FOR GFR; Value: 0.95; Range: 0.70-1.30; Units: MG/DL; Status: F Test: GLOMERULAR FILTRATION RATE; Value: > 60.0; Range: >56; Status: F Test: SODIUM LEVEL; Value: 139; Range: 136-145; Units: MEQ/L; Status: F Test: POTASSIUM SERUM; Value: 3.7; Range: 3.5-5.1; Units: MEQ/L; Status: F Test: CHLORIDE LEVEL; Value: 102; Range: 98-107; Units: MEQ/L; Status: F Test: CARBON DIOXIDE LEVEL; Value: 31; Range: 21-32; Units: MEQ/L; Status: F Test: ANION GAP; Value: 6; Range: 8-16; Abnormal: Below low normal; Units: MEQ/L; Status: F Test: CALCIUM LEVEL; Value: 8.5; Range: 8.5-10.1; Units: MG/DL; Status: F Test Note: ; Units are mL/min/1.73 m2 Chronic Kidney Disease Staging per NKF: Stage I & II GFR >=60 Normal to Mildly Decreased Stage III GFR 30-59 Moderately Decreased Stage IV GFR 15-29 Severely Decreased Stage V GFR <15 Very Little GFR Left ESRD GFR <15 on BIOMEDICAL SCIENTIST Lab Order: CBC with Diff; SPEC'M 08/04/16 22:36 Test: WHITE BLOOD COUNT; Value: 7.2; Range: 4.0-10.0; Units: K/mm3; Status: F Test: RED BLOOD COUNT; Value: 5.25; Range: 4.30-6.10; Units: M/mm3; Status: F Test: HEMOGLOBIN; Value: 15.8; Range: 14.0-18.0; Units: g/dl; Status: F Test: HEMATOCRIT; Value: 47.4; Range: 42.0-52.0; Units: %; Status: F Test: MEAN CORPUSCULAR VOLUME; Value: 90.2; Range: 80.0-96.0; Units: fl; Status: F Test: MEAN CORPUSCULAR HEMOGLOBIN; Value: 30.1; Range: 27.0-33.0; Units: pg; Status: F Test: MEAN CORPUSCULAR HGB CONC; Value: 33.4; Range: 32.0-36.5; Units: g/dl; Status: F Test: RED CELL DISTRIBUTION WIDTH; Value: 13.9; Range: 11.5-14.5; Units: %; Status: F Test: PLATELET COUNT, AUTOMATED; Value: 177; Range: 150-450; Units: k/mm3; Status: F Test: NEUTROPHILS %; Value: 55.6; Range: 36.0-66.0; Units: %; Status: F Test: LYMPH %; Value: 29.7; Range: 24.0-44.0; Units: %; Status: F Test: MONO %; Value: 7.0; Range: 0.0-5.0; Abnormal: Above high normal; Units: %; Status: F Test: EOS %; Value: 3.0; Range: 0.0-3.0; Units: %; Status: F Test: BASO %; Value: 1.1; Range: 0.0-1.0; Abnormal: Above high normal; Units: %; Status: F Test: LARGE UNSTAINED CELL %; Value: 3.5; Range: 0.0-4.0; Units: %; Status: F Test: NEUTROPHILS #; Value: 4.0; Range: 1.8-7.7; Units: K/mm3; Status: F Test: LYMPH #; Value: 2.4; Range: 1.5-4.5; Units: K/mm3; Status: F Test: MONO #; Value: 0.5; Range: 0.0-0.8; Units: K/mm3; Status: F Test: EOS #; Value: 0.2; Range: 0.0-0.50; Units: K/mm3; Status: F Test: BASO #; Value: 0.1; Range: 0.0-0.2; Units: K/mm3; Status: F Test: LARGE UNSTAINED CELL #; Value: 0.3; Range: 0.0-0.4; Units: K/mm3; Status: F Lab Order: Cardiac Injury Profile; SPEC'M 08/04/16 22:36 Test: CPK CREATINE PHOSPHOKINASE; Value: 70; Range: 39-308; Units: U/L; Status: F Test: CK-MB VALUE MASS; Value: 1.5; Range: 0.0-3.6; Units: NG/ML; Status: F Test: MB/CK RELATIVE INDEX; Value: 2.14; Range: < OR =4; Status: F Test Note: ; DIAGNOSIS CRITERIA MMB ng/ml Relative Index (RI) NON-AMI < or = 5 N/A DANIELLE ZONE > 5 < or = 4 AMI > 5 > 4 Lab Order: D-Dimer Quant; [facility] 08/04/16 22:36 Test: D-DIMER QUANT; Value: 380.3; Range: <500; Units: ng/ml; Status: F Lab Order: Troponin; [facility] 08/04/16 22:36 Test: TROPONIN I; Value: < 0.02; Range: < 0.10; Units: NG/ML; Status: F Test Note: ; Troponin I Reference Interval for [employer] LOCI: 99th Percentile= 0.00-0.045 ng/ml Risk Stratification: <= 0.10 ng/ml Decreased Risk for Adverse Clinical Events. 0.10-1.50 ng/ml Increased Risk for Adverse Clinical Events. Evaluation of additional criterion and/or repeat testing in 2-6 hours is suggested to rule out myocardial damage. >= 1.50 ng/ml Indicative of Myocardial Injury. Lab Order: CARDIAC INJURY PROFILE; [facility] 08/05/16 04:23 Test: CPK CREATINE PHOSPHOKINASE; Value: 62; Range: 39-308; Units: U/L; Status: F Test: CK-MB VALUE MASS; Value: 1.4; Range: 0.0-3.6; Units: NG/ML; Status: F Test: MB/CK RELATIVE INDEX; Value: 2.25; Range: < OR =4; Status: F Test Note: ; DIAGNOSIS CRITERIA MMB ng/ml Relative Index (RI) NON-AMI < or = 5 N/A DANIELLE ZONE > 5 < or = 4 AMI > 5 > 4 Lab Order: TROPONIN; [facility] 08/05/16 04:23 Test: TROPONIN I; Value: < 0.02; Range: < 0.10; Units: NG/ML; Status: F Test Note: ; Troponin I Reference Interval for [employer] LOCI: 99th Percentile= 0.00-0.045 ng/ml Risk Stratification: <= 0.10 ng/ml Decreased Risk for Adverse Clinical Events. 0.10-1.50 ng/ml Increased Risk for Adverse Clinical Events. Evaluation of additional criterion and/or repeat testing in 2-6 hours is suggested to rule out myocardial damage. >= 1.50 ng/ml Indicative of Myocardial Injury. 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: ; : 1965 Requested By: CHLOE Bustos; Order Number: [id number] Reading MD: Kana Izaguirre; Measurements; Intervals [place]; Rate: 80 P: 65; AL: 180 QRS: 47; QRSD: 102 T: 45; QT: 374; QTc: 433; Interpretive Statements; SINUS RHYTHM; POSSIBLE LAE; INCOMPLETE RIGHT BUNDLE BRANCH BLOCK; ; Electronically Signed On 08-05-2016 8:36:29 EST by Kana Izaguirre; Radiology Order: Chest, 2 View (pa\\E\\lat) Test: Chest, 2 View (pa\\E\\lat) REASON FOR EXAMINATION: Chest Pain; Clinical: Chest pain .; ; Comparison: 04/19/2016 .; ; Technique: PA and lateral.; ; Findings:; The mediastinum and cardiac silhouette are normal. The lung dior are clear and; without acute consolidation, effusion, or pneumothorax. The skeletal structures; are intact and normal.; ; Impression:; 1. 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: ; : 1965 Requested By: CHLOE Bustos; Order Number: [id number] Reading MD: Meliton Delgado; Measurements; Intervals [place]; Rate: 55 P: 64; AL: 201 QRS: 55; QRSD: 96 T: 43; QT: 401; QTc: 384; Interpretive Statements; Sinus bradycardia; Delayed anterior R wave progression; No significant change when compared to prior tracing of 08/04/2016; ; Electronically Signed On 08-05-2016 8:42:58 EST by Meliton Delgado; Radiology Order: CT Chest Angio R/O PE Test: CT Chest Angio R/O PE REASON FOR EXAMINATION: r/o dissection; ; CLINICAL INDICATION: Evaluate for pulmonary embolism.; COMPARISON: CT chest 04/25/2016.; TECHNIQUE: CT pulmonary angiogram was performed with intravenous contrast. 3D/MIPS technique was util; ized with multiplanar reconstructions in sagittal and coronal projections.; FINDINGS:; LINES AND DEVICES: None; PULMONARY ARTERY: The pulmonary artery is normal in caliber. There is no evidence of filling defects; in the main, right or left main, lobar, segmental, and visualized subsegmental pulmonary arteries.; AORTA: Normal in caliber with no evidence of gross dissection or aneurysm.; LOWER NECK/THYROID: Thyroid gland is unremarkable. No mass, suspicious cystic lesion, or enlarged carmen; nopathy.; AXILLA/HILUM/MEDIASTINUM : No enlarged adenopathy, mass, suspicious cystic lesion, or fluid collectio; n.; HEART: Heart is normal in size without pericardial effusion.; AIRWAYS, LUNGS AND PLEURA: No acute infiltrate, effusion, mass, suspicious nodule, or pneumothorax. C; entral and visualized peripheral airways are patent.; UPPER ABDOMEN: Visualized upper abdominal organs are unremarkable.; OSSEOUS STRUCTURES: No fracture or suspicious lesion; SOFT TISSUES AND THORACIC WALL : No soft tissue abnormality or hernia.; OTHER: No other significant abnormalities.; IMPRESSION:; No pulmonary embolism.; ; Outcome: 05:23 Discharge ordered by Provider. mm11 05:42 Discharge Assessment: Patient awake, alert and oriented x 3. No cognitive and/or nn1 functional deficits noted. Patient verbalized understanding of disposition instructions. patient administered narcotics - yes. Pt provided with safe discharge. The following High Risk Discharge criteria are identified: None. Discharged to home ambulatory. Condition: stable Condition: improved. Discharge instructions given to patient, Instructed on discharge instructions, follow up and referral plans. medication usage, no driving heavy equipment, Demonstrated understanding of instructions, medications, Pt was receptive of discharge instructions/ teaching. Property :Personal belongings accompany Pt. 05:43 CT Study completed. nn1 05:44 Patient left the ED. nn1 Signatures: Dispatcher [employer] EDMS Najma Roche, RN RN kmg1 Mirna Lewis, Reg Reg gb Chloe Conti, DO mm11 Harvey Fuentes gr2 Samantha Lazcano,CYLINDER PRESS OPERATOR APPRENTICE CYLINDER PRESS OPERATOR APPRENTICE ka4 Juan Montenegro RN RN nn1 Edgardo Cruz, TOWEL WEAVER TOWEL WEAVER mdr Yosi Albert, Reg Reg pm4 Corrections: (The following items were deleted from the chart) 05:44 05:41 General: Appears in no apparent distress, comfortable, Behavior is appropriate nn1 for age, cooperative, nn1 Chart Complete MTDD
--- NOTE | 2016-08-07 06:45 | EDDOCDS ---
Physician Documentation [facility] Name: Jose Francisco Velez Age: 50 yrs Sex: Male : 1965 Arrival Date: 08/04/2016 Time: 21:56 Bed 17 Private MD: David Jaimes FPA Disposition: 08/05/16 05:23 Discharged to Home/Self Care. Impression: Chest pain, unspecified. - Condition is Stable. - Discharge Instructions: Panic Attacks, Nonspecific Chest Pain, Generalized Anxiety Disorder, Panic Attacks, [id number]. - Prescriptions for Xanax 0.25 mg Oral Tablet - take 1 tablet by ORAL route every 8 hours As needed MDD: 3 tabs; 20 tablet. - Medication Reconciliation, Local Pharmacy Hours form. - Work Release Form - 2 day (08/05/16 05:47). sls1 - Follow up: David Jaimes; When: Call to arrange an appointment; Reason: Continuance of care. - Problem is an acute exacerbation. - Symptoms have improved. Historical: - Allergies: No known drug Allergies; - Home Meds: 1. aspirin 81 mg Oral TbEC 1 tab once daily (Last dose: 08/04/2016 13:00) 2. Crestor 5 mg Oral tab 1 tab once daily 3. Prilosec 20 mg Oral cpDR 1 cap once daily 4. med for ulcer 5. med for axiety 6. med for angina - PMHx: "spot" between lungs; brain bleed; GERD; Hypercholesterolemia; angina; Anxiety; Ulcers; - PSHx: Vasectomy; Hernia repair; Endoscopy, Upper; - Social history: Smoking status: Patient states was never smoker of tobacco. No barriers to communication noted, The patient speaks fluent [place], Speaks appropriately for age. - Family history: No immediate family members are acutely ill. - : The pt / caregiver states he / she is not on anticoagulants. Home medication list is obtained from the patient. - Exposure Risk Screening:: None identified. Vital Signs: 08/04 21:58 BP 161 / 86; Pulse 87; Resp 18 S; Temp 98.0(O); Pulse Ox 97% on R/A; Weight 108.86 kg / gr2 240 lbs (R); Height 5 ft. 8 in. (172.72 cm) (R); Pain 6/10; 22:32 BP 158 / 102 (auto/); nn1 22:33 Pulse 76 MON; Pulse Ox 96% ; nn1 22:47 BP 155 / 97 (auto/); nn1 22:48 Pulse 74 MON; Pulse Ox 96% ; nn1 23:02 BP 147 / 91 (auto/); nn1 23:03 Pulse 70 MON; Pulse Ox 97% ; nn1 23:17 BP 151 / 93 (auto/); nn1 23:18 Pulse 64 MON; Pulse Ox 96% ; nn1 23:32 BP 153 / 96 (auto/); nn1 23:33 Pulse 66 MON; Pulse Ox 94% ; nn1 23:47 BP 140 / 88 (auto/); nn1 23:48 Pulse 64 MON; Pulse Ox 94% ; 08/05 00:02 BP 142 / 88 (auto/); nn1 00:03 Pulse 62 MON; Pulse Ox 94% ; nn1 00:17 BP 143 / 84 (auto/); nn1 00:18 Pulse 64 MON; Pulse Ox 94% ; nn1 00:32 BP 148 / 83 (auto/); nn1 00:33 Pulse 64 MON; Pulse Ox 96% ; nn1 00:47 BP 147 / 82 (auto/); nn1 00:48 Pulse 68 MON; Pulse Ox 94% ; nn1 01:02 BP 148 / 83 (auto/); nn1 01:03 Pulse 66 MON; Pulse Ox 93% ; nn1 01:17 BP 143 / 86 (auto/); nn1 01:18 Pulse 58 MON; Pulse Ox 93% ; nn1 01:32 BP 144 / 87 (auto/); nn1 01:33 Pulse 60 MON; Pulse Ox 96% ; nn1 01:45 BP 153 / 91 (auto/); nn1 01:47 BP 141 / 85 (auto/); nn1 01:47 Pulse 64 MON; Pulse Ox 94% ; nn1 01:48 Pulse 64 MON; Pulse Ox 94% ; nn1 01:48 BP 141 / 85; Pulse 71; nn1 01:55 BP 90 / 54 (auto/); nn1 01:55 Pulse 78 MON; Pulse Ox 93% ; nn1 01:58 BP 90 / 54; Pulse 76; nn1 02:08 Pulse Ox 93% ; nn1 02:09 BP 165 / 79 (auto/); nn1 02:10 BP 146 / 66 (auto/); nn1 02:10 Pulse 74 MON; Pulse Ox 94% ; nn1 02:17 BP 133 / 59 (auto/); nn1 02:17 Pulse 76 MON; Pulse Ox 95% ; nn1 02:32 BP 122 / 63 (auto/); nn1 02:33 Pulse 60 MON; Pulse Ox 92% ; nn1 02:47 BP 129 / 64 (auto/); nn1 02:48 Pulse 56 MON; Pulse Ox 92% ; nn1 03:02 BP 126 / 69 (auto/); nn1 03:02 Pulse 90 MON; Pulse Ox 92% ; nn1 03:17 BP 130 / 77 (auto/); nn1 03:18 Pulse 56 MON; Pulse Ox 92% ; nn1 03:32 BP 134 / 76 (auto/); nn1 03:33 Pulse 56 MON; Pulse Ox 93% ; nn1 03:47 BP 126 / 72 (auto/); nn1 03:48 Pulse 56 MON; Pulse Ox 93% ; nn1 04:02 BP 132 / 79 (auto/); nn1 04:03 Pulse 54 MON; Pulse Ox 94% ; nn1 04:17 BP 125 / 76 (auto/); nn1 04:18 Pulse 52 MON; Pulse Ox 95% ; nn1 04:21 Temp 98.0(TE); mdr 05:41 BP 134 / 84; Pulse 86; Resp 18; Temp 98.0; Pulse Ox 94% on R/A; Pain 2/10; nn1 08/04 21:58 Body Mass Index 36.49 (108.86 kg, 172.72 cm) gr2 MDM: 08/04 22:07 ECG WITH READING ER PHYS+CARDIAG ordered. EDMS 22:27 Aspirin Chewable Tablet 324 mg PO once ordered. mm11 22:27 Dining Service Supervisor/Pulse Ox/q 30 min VS ordered. mm11 22:27 IV Saline Lock ordered. mm11 22:27 Rhythm Strip to chart ordered. mm11 22:27 Undress patient appropriately for examination ordered. mm11 22:27 morphine 4 mg IVP every 30 minutes; Document pain score/vitals after each dose (Hold if mm11 SBP < 90mmHg) x2 ordered. 22:27 Ondansetron 4 mg IVP once ordered. mm11 22:28 Basic Metabolic Profile Ordered. EDMS 22:28 CBC with Diff Ordered. EDMS 22:28 Cardiac Injury Profile Ordered. EDMS 22:28 D-Dimer Quant Ordered. EDMS 22:28 Troponin Ordered. EDMS 22:30 Chest, 2 View (pa\\E\\lat) Ordered. EDMS 23:14 Basic Metabolic Profile Reviewed. mm11 23:14 CBC with Diff Reviewed. mm11 23:14 Cardiac Injury Profile Reviewed. mm11 23:14 D-Dimer Quant Reviewed. mm11 23:14 Troponin Reviewed. mm11 23:27 Financial registration complete. pm4 23:51 [facility] Payment Agreement was scanned into Easy [employer] Online and attached to record. pm4 08/05 00:04 GI Cocktail - (Alum-Mag Hydroxide-Simeth 30 ml, Lidocaine 10 ml, Hyoscyamine 10 ml) PO mm11 once; Pre-mixed 50mL unit dose ordered. 01:25 Repeat EKG (put time details section) ordered. mm11 01:25 Redraw CIP &Troponin (put time in details section) ordered. mm11 01:29 Repeat EKG (put time details section) complete. kb5 01:30 Redraw CIP &Troponin (put time in details section) complete. kb5 01:30 ELECTROCARDIOGRAM ADULT ordered. EDMS 01:31 CARDIAC INJURY PROFILE Ordered. EDMS 01:31 TROPONIN Ordered. EDMS 01:32 Nitrostat 0.4 mg Sublingual every 5 minutes; hold if SBP<90mmHg.Document Pain Score mm11 Response to Each Dose x3 ordered. 01:33 CT Chest Angio R/O PE Ordered. EDMS 01:57 NS 0.9% 1000 ml IV at bolus once ordered. mm11 02:12 Dilaudid - HYDROmorphone 1 mg IVP once ordered. mm11 05:00 CARDIAC INJURY PROFILE Reviewed. mm11 05:00 TROPONIN Reviewed. mm11 05:00 Chest, 2 View (pa\\E\\lat) Reviewed. mm11 05:00 CT Chest Angio R/O PE Reviewed. mm11 09:44 T-Sheet-- Draft Copy was scanned into [employer] and attached to record. gb 09:44 ECG/EKG was scanned into [employer] and attached to record. gb 09:45 Trend VS was scanned into [employer] and attached to record. gb 09:45 Radiology Report was scanned into [employer] and attached to record. gb Administered Medications: 01/18 22:41 Drug: Aspirin 324 mg [aspirin 81 mg chewable tablet (4 tabs)] Route: PO; nn1 22:41 Drug: morphine 4 mg [morphine 4 mg/mL intravenous cartridge (1 mL)] Route: IVP; Site: nn1 right antecubital; 22:41 Drug: Ondansetron 4 mg [ondansetron HCl 2 mg/mL intravenous solution (2 mL)] Route: nn1 IVP; Site: right antecubital; 08/05 00:08 Drug: GI Cocktail - (Alum-Mag Hydroxide-Simeth Suspension 225 mg-200 mg-25 mg/5 mL 30 nn1 ml, Lidocaine Liquid 2 % 10 ml, Hyoscyamine Liquid 10 ml) Route: PO; 01:41 Drug: Nitrostat 0.4 mg [Nitrostat 0.4 mg sublingual tablet (1 tabs)] Route: Sublingual; nn1 01:46 Drug: Nitrostat 0.4 mg [Nitrostat 0.4 mg sublingual tablet (1 tabs)] Route: Sublingual; nn1 01:48 Follow up: Response: Pain is unchanged, physician notified nn1 01:48 Follow up: BP 141 / 85; Pulse 71 bpm nn1 01:58 Follow up: BP 90 / 54; Pulse 76 bpm nn1 02:15 Drug: Dilaudid - HYDROmorphone 1 mg [hydromorphone 1 mg/mL injection syringe (1 mL)] nn1 Route: IVP; Site: right antecubital; 05:40 Not Given (Physician Discretion): NS 0.9% 1000 ml IV at bolus once nn1 Signatures: Dispatcher [employer] EDMS Najma Roche, RN RN kmg1 Mirna Lewis, Reg Reg gb Brando Dominguez, RN INTEGRATED RN INTEGRATED kb5 Dean Conti, DO mm11 Juan MontenegroRN RN nn1 Yosi Albert, Reg Reg pm4 Yaquelin Hinojosa RN sls1 The chart was reviewed and I authenticate all verbal orders and agree with the evaluation and treatment provided.Attachments: 08/04 23:51 [facility] Payment Agreement pm4 08/05 09:44 T-Sheet-- Draft Copy 09:44 ECG/EKG gb Chart Complete MTDD
== END 2016-08-05 05:44 | disposition home or self-care (01) ==
LOC: M ED 21:56
DX: R07.89 Other chest pain (principal); R06.02 Shortness of breath; F41.9 Anxiety disorder, unspecified; E78.00 Pure hypercholesterolemia, unspecified; K21.9 Gastro-esophageal reflux disease without esophagitis; R91.8 Other nonspecific abnormal finding of lung field; I20.9 Angina pectoris, unspecified; Z79.899 Other long term (current) drug therapy; Z79.82 Long term (current) use of aspirin
CPT/HCPCS: 36415; 71020; 71275; 80048; 82550; 82553; 85025; 85379; 93005; 93041; 96374; 96375; 99285; J1170; J2405; Q9967

== ENCOUNTER → 2016-08-31 | Outpatient (CLI) | payer BC, OTHER ==
--- NOTE | 2016-08-31 12:52 | REP ---
Clinical: Shortness of breath . Comparison: 08/04/2016. Technique: PA and lateral. Findings: The mediastinum and cardiac silhouette are normal. The lung dior are clear and without acute consolidation, effusion, or pneumothorax. The skeletal structures are intact and normal. Impression: 1. No acute cardiopulmonary process. Signed by Horace Thompson MD 08/31/2016 12:44 P
== END ==
LOC: M RAD 12:27
PROVIDERS: ATTEND Physician Assistant
DX: R06.02 Shortness of breath (principal)

== ENCOUNTER 2016-12-27 09:46 | Emergency (ER) | payer BC, OTHER ==
[~2016-12-27] VITALS: Ht 172.7 cm; Wt 108.0 kg
[2016-12-27] MEDS ORDERED: RANI300T PO (10:02)
[2016-12-27] MEDS ORDERED: ESCI10TA2 PO (10:02)
[2016-12-27] MEDS ORDERED: ATOR1TAB19 PO (10:02)
[2016-12-27] MEDS ORDERED: ALPR0.254 SL (10:02)
[2016-12-27] MEDS ORDERED: ASPIRIN 81 MG CHEW TABLET PO ONE (10:45)
[2016-12-27 10:56] LABS: BASO % 0.9 % (0.0-1.0); EOS # 0.1 K/mm3 (0.0-0.50); EOS % 1.8 % (0.0-3.0); LARGE UNSTAINED CELL # 0.1 K/mm3 (0.0-0.4); LARGE UNSTAINED CELL % 2.5 % (0.0-4.0); LYMPH # 1.4 K/mm3 (1.5-4.5); MEAN CORPUSCULAR HEMOGLOBIN 31.7 pg (27.0-33.0); MEAN CORPUSCULAR HGB CONC 36.3 g/dl (32.0-36.5); MEAN CORPUSCULAR VOLUME 87.4 fl (80.0-96.0); MONO # 0.3 K/mm3 (0.0-0.8); MONO % 6.4 % (0.0-5.0); NEUTROPHILS # 3.3 K/mm3 (1.8-7.7); NEUTROPHILS % 64.4 % (36.0-66.0); PLATELET COUNT, AUTOMATED 190 k/mm3 (150-450); RED CELL DISTRIBUTION WIDTH 13.4 % (11.5-14.5); WHITE BLOOD COUNT 5.2 K/mm3 (4.0-10.0)
[2016-12-27 11:41] LABS: BILIRUBIN,TOTAL 0.8 MG/DL (0.2-1.0); CARBON DIOXIDE LEVEL 27 MEQ/L (21-32); POTASSIUM SERUM 3.9 MEQ/L (3.5-5.1); SODIUM LEVEL 141 MEQ/L (136-145); TOTAL PROTEIN 7.7 GM/DL (6.4-8.2)
[2016-12-27 11:45] LABS: ALBUMIN/GLOBULIN RATIO 0.88 (1.00-1.93); ALKALINE PHOSPHATASE 67 U/L (45-117); ALT/SGPT 38 U/L (12-78); ANION GAP 6 MEQ/L (8-16); AST/SGOT 13 U/L (15-37); CALCIUM LEVEL 8.6 MG/DL (8.5-10.1); CHLORIDE LEVEL 108 MEQ/L (98-107)
[2016-12-27 12:07] LABS: BLOOD UREA NITROGEN 11 MG/DL (7-18); CREATININE FOR GFR 0.96 MG/DL (0.70-1.30); GLOMERULAR FILTRATION RATE > 60.0 (>56); GLUCOSE, FASTING 119 MG/DL (70-105)
[2016-12-27 12:08] LABS: ALBUMIN 3.6 GM/DL (3.2-5.2); BILIRUBIN,DIRECT 0.1 MG/DL (0.0-0.2)
[2016-12-27 12:55] VITALS: BP 131/88
== END 2016-12-27 13:29 | disposition home or self-care (01) ==
LOC: M ED 10:17
DX: R07.9 Chest pain, unspecified (principal); E78.5 Hyperlipidemia, unspecified; Z79.899 Other long term (current) drug therapy

== ENCOUNTER 2017-01-18 02:03 | Emergency (ER) | payer BC, OTHER ==
[~2017-01-18] VITALS: Ht 172.7 cm; Wt 96.0 kg
[~2017-01-18 02:03] MED LIST: ALPR0.254 SL; ATOR1TAB19 PO; ESCI10TA2 PO; RANI300T PO
[2017-01-18] MEDS ORDERED: ASPI81TA85 PO (02:14)
[2017-01-18 02:40] LABS: BASO # 0.1 K/mm3 (0.0-0.2); EOS # 0.2 K/mm3 (0.0-0.50); EOS % 2.4 % (0.0-3.0); LARGE UNSTAINED CELL # 0.2 K/mm3 (0.0-0.4); LARGE UNSTAINED CELL % 2.9 % (0.0-4.0); LYMPH # 2.9 K/mm3 (1.5-4.5); LYMPH % 34.5 % (24.0-44.0); MEAN CORPUSCULAR HEMOGLOBIN 30.8 pg (27.0-33.0); MEAN CORPUSCULAR HGB CONC 34.1 g/dl (32.0-36.5); MEAN CORPUSCULAR VOLUME 90.4 fl (80.0-96.0); MONO # 0.5 K/mm3 (0.0-0.8); MONO % 6.3 % (0.0-5.0); NEUTROPHILS # 4.1 K/mm3 (1.8-7.7); PLATELET COUNT, AUTOMATED 196 k/mm3 (150-450); RED CELL DISTRIBUTION WIDTH 13.7 % (11.5-14.5); WHITE BLOOD COUNT 7.8 K/mm3 (4.0-10.0)
[2017-01-18 02:49] LABS: INR 0.99
[2017-01-18 03:00] LABS: ALBUMIN/GLOBULIN RATIO 1.11 (1.00-1.93); ALKALINE PHOSPHATASE 71 U/L (45-117); ALT/SGPT 41 U/L (12-78); ANION GAP 6 MEQ/L (8-16); AST/SGOT 18 U/L (15-37); BILIRUBIN,DIRECT 0.2 MG/DL (0.0-0.2); BILIRUBIN,TOTAL 1.2 MG/DL (0.2-1.0); BLOOD UREA NITROGEN 14 MG/DL (7-18); CALCIUM LEVEL 8.6 MG/DL (8.5-10.1); CARBON DIOXIDE LEVEL 30 MEQ/L (21-32); CHLORIDE LEVEL 105 MEQ/L (98-107); CREATININE FOR GFR 0.91 MG/DL (0.70-1.30); GLOMERULAR FILTRATION RATE > 60.0 (>56); GLUCOSE, FASTING 97 MG/DL (70-105); POTASSIUM SERUM 3.8 MEQ/L (3.5-5.1); SODIUM LEVEL 141 MEQ/L (136-145); TOTAL PROTEIN 7.6 GM/DL (6.4-8.2)
[2017-01-18] MEDS ORDERED: KETOROLAC 30 MG/ML VIAL (J1885) IV ONE (03:00)
--- NOTE | 2017-01-18 03:30 | REPUSA ---
CLINICAL HISTORY: Headaches. TECHNIQUE: Multiple axial brain CT scan sections were obtained from base to vertex without contrast a dministration. COMMENTS: The study shows normal configuration of sella turcica. There are no intra or extra-axial collections. There is no mass effect or midline shift. There is no evidence of hematoma formation. No hydrocephal us is present. No abnormal calcifications are noted. No significant abnormalities are seen either in the posterior fossa or supratentorial compartment. The sinuses and mastoid air cells are patent. No changes noted since the prior exam on 03/27/2011. IMPRESSION: No evidence of acute intracranial pathology. Thank you for your kind referral of this patient.
[2017-01-18] MEDS ORDERED: NAPR500T PO (06:21)
[2017-01-18 06:25] VITALS: BP 119/78
--- NOTE | 2017-01-18 08:08 | REP ---
Clinical: Chest pain . Comparison: 12/27/2016 . Findings: The mediastinum and cardiac silhouette are stable and within normal limits for portable technique. The lung dior are clear without acute consolidation, effusion, or pneumothorax. Skeletal structures are intact. Impression: No acute cardiopulmonary process appreciated. Signed by Horace Thompson MD 01/18/2017 08:00 A
--- NOTE | 2017-01-18 14:50 | ECGEPIP ---
Stationary ECG Study 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
== END 2017-01-18 06:55 | disposition home or self-care (01) ==
LOC: M ED 02:03
DX: R07.89 Other chest pain (principal)
CPT/HCPCS: 70450; 71010; 80048; 80076; 82550; 82553; 83690; 84443; 85025; 85610; 85730; 93005; 93041; 94760; 96374; 99284; J1885

== ENCOUNTER 2017-02-27 09:33 | Emergency (ER) | payer BC, OTHER ==
[~2017-02-27] VITALS: Ht 172.7 cm; Wt 107.8 kg
[~2017-02-27 09:33] MED LIST changes: +ASPI81TA85 PO; +NAPR500T PO
[2017-02-27 10:04] LABS: BASO # 0.1 K/mm3 (0.0-0.2); EOS # 0.1 K/mm3 (0.0-0.50); EOS % 2.3 % (0.0-3.0); LARGE UNSTAINED CELL # 0.2 K/mm3 (0.0-0.4); LARGE UNSTAINED CELL % 2.6 % (0.0-4.0); LYMPH # 1.7 K/mm3 (1.5-4.5); LYMPH % 24.6 % (24.0-44.0); MEAN CORPUSCULAR HGB CONC 34.4 g/dl (32.0-36.5); MONO # 0.3 K/mm3 (0.0-0.8); MONO % 5.2 % (0.0-5.0); NEUTROPHILS % 64.2 % (36.0-66.0); PLATELET COUNT, AUTOMATED 182 k/mm3 (150-450); RED CELL DISTRIBUTION WIDTH 13.8 % (11.5-14.5); WHITE BLOOD COUNT 6.1 K/mm3 (4.0-10.0)
--- NOTE | 2017-02-27 10:14 | REP ---
Portable chest, 09:59 a.m., single AP view, the patient semi upright: Comparison is 01/18/2017. The lung dior are clear. The cardiac size is normal. The mahi, mediastinum, and bony thorax are unremarkable. Impression: Negative portable chest. There is no interval change. Signed by You Caldwell MD 02/27/2017 10:06 A
[2017-02-27 10:18] LABS: ALBUMIN 3.8 GM/DL (3.2-5.2); ALKALINE PHOSPHATASE 74 U/L (45-117); ALT/SGPT 42 U/L (12-78); ANION GAP 6 MEQ/L (8-16); AST/SGOT 14 U/L (15-37); BILIRUBIN,DIRECT 0.2 MG/DL (0.0-0.2); BILIRUBIN,TOTAL 1.1 MG/DL (0.2-1.0); BLOOD UREA NITROGEN 12 MG/DL (7-18); CALCIUM LEVEL 8.4 MG/DL (8.5-10.1); CARBON DIOXIDE LEVEL 28 MEQ/L (21-32); CHLORIDE LEVEL 109 MEQ/L (98-107); CREATININE FOR GFR 0.93 MG/DL (0.70-1.30); GLOMERULAR FILTRATION RATE > 60.0 (>56); GLUCOSE, FASTING 103 MG/DL (70-105); POTASSIUM SERUM 4.1 MEQ/L (3.5-5.1); SODIUM LEVEL 143 MEQ/L (136-145); TOTAL PROTEIN 7.6 GM/DL (6.4-8.2)
[2017-02-27] MEDS ORDERED: ISOVUE-370 76% 100ML VIAL (Q9967) As Ordered ONE (10:28)
--- NOTE | 2017-02-27 10:58 | REP ---
CT of the chest with IV contrast, CT pulmonary angiography: Comparison is 08/05/2016. There are no emboli in the pulmonary trunk or central pulmonary arteries. There are no emboli in the pulmonary artery lobe or segment branches. There are no infiltrates or effusions. There are no nodules or masses. The thoracic aorta is unremarkable. There is no mediastinal, hilar or axillary adenopathy. Cardiac size is upper normal. The visualized upper abdominal contents are unremarkable. Impression: There are no pulmonary emboli. Negative CT study of the chest. Signed by You Caldwell MD 02/27/2017 10:49 A
[2017-02-27 11:46] VITALS: BP 125/82
--- NOTE | 2017-02-27 13:31 | ECGEPIP ---
Stationary ECG Study [facility] - ED Test Date: 2017-02-27 Pat Name: MARINE SOTO Department: Room: - Gender: M Axle Turner: rn : 1965 Requested By: Melvina Navarro Order Number: [id number] Reading MD: Melvina Navarro Measurements Intervals [place] Rate: 69 P: 27 [place]: 180 QRS: 47 QRSD: 102 T: 37 QT: 397 QTc: 426 Interpretive Statements SINUS RHYTHM SIMILAR 01/18/17 Electronically Signed On 02-27-2017 13:31:17 EDT by Melvina Navarro
== END 2017-02-27 11:59 | disposition home or self-care (01) ==
LOC: M ED 09:33
DX: R07.9 Chest pain, unspecified (principal); E78.4 Other hyperlipidemia
CPT/HCPCS: 36415; 71010; 71275; 80048; 80076; 82550; 82553; 83690; 83880; 84443; 85025; 93005; 93041; 94760; 99284; Q9967

== ENCOUNTER 2017-05-10 20:57 | Emergency (ER) | payer BC, OTHER ==
[~2017-05-10] VITALS: Ht 172.7 cm; Wt 107.4 kg
[2017-05-10 21:54] LABS: BASO % 0.6 % (0.0-1.0); EOS # 0.2 10^3/uL (0.0-0.50); EOS % 2.8 % (0.0-3.0); IMMATURE GRANULOCYTE % 0.6 % (0-0); LYMPH # 2.1 10^3/uL (1.5-4.5); LYMPH % 33.2 % (24.0-44.0); MEAN CORPUSCULAR HEMOGLOBIN 30.4 pg (27.0-33.0); MEAN CORPUSCULAR HGB CONC 34.7 g/dl (32.0-36.5); MEAN CORPUSCULAR VOLUME 87.6 fl (80.0-96.0); MONO # 0.6 10^3/uL (0.0-0.8); MONO % 9.7 % (0.0-5.0); NEUTROPHILS # 3.4 10^3/uL (1.8-7.7); NEUTROPHILS % 53.1 % (36.0-66.0); PLATELET COUNT, AUTOMATED 192 10^3/uL (150-450); RED CELL DISTRIBUTION WIDTH 13.4 % (11.5-14.5); WHITE BLOOD COUNT 6.4 10^3/uL (4.0-10.0)
[2017-05-10] MEDS ORDERED: ASPIRIN 81 MG CHEW TABLET PO ONE (22:00)
[2017-05-10 22:15] LABS: INR 0.98
[2017-05-10 22:19] LABS: ALBUMIN 3.7 GM/DL (3.2-5.2); ALBUMIN/GLOBULIN RATIO 1.12 (1.00-1.93); ALKALINE PHOSPHATASE 68 U/L (45-117); ALT/SGPT 40 U/L (12-78); ANION GAP 7 MEQ/L (8-16); AST/SGOT 15 U/L (15-37); BILIRUBIN,DIRECT 0.2 MG/DL (0.0-0.2); BILIRUBIN,TOTAL 0.8 MG/DL (0.2-1.0); BLOOD UREA NITROGEN 13 MG/DL (7-18); CALCIUM LEVEL 8.4 MG/DL (8.5-10.1); CARBON DIOXIDE LEVEL 28 MEQ/L (21-32); CHLORIDE LEVEL 105 MEQ/L (98-107); CREATININE FOR GFR 1.02 MG/DL (0.70-1.30); FREE T4 0.95 NG/DL (0.76-1.46); GLOMERULAR FILTRATION RATE > 60.0 (>56); GLUCOSE, FASTING 99 MG/DL (70-105); POTASSIUM SERUM 4.3 MEQ/L (3.5-5.1); SODIUM LEVEL 140 MEQ/L (136-145)
[2017-05-10] MEDS: NITROGLYCERIN 0.4 MG SUBL TABLET SL PRN ×3 (22:44→22:54)
[2017-05-10 22:54] VITALS: BP 127/62
[2017-05-10 23:00] LABS: VENOUS BASE EXCESS -1.4 (-2.0-2.0); VENOUS O2 SATURATION 93.7 % (60.0-80.0); VENOUS PARTIAL PRESSURE CO2 39.8 mmHg (38.0-50.0); VENOUS PARTIAL PRESSURE O2 65.4 mmHg (30.0-50.0); VENOUS STANDARD HCO3 23.3 MEQ/L; VENOUS TOTAL CO2 24.7 MEQ/L (24.0-28.0)
[2017-05-10] MEDS ORDERED: MORPHINE 4 MG/ML 1ML SYRINGE IV ONE (23:45)
[2017-05-11 03:07] VITALS: BP 139/79
--- NOTE | 2017-05-11 04:28 | ECGEPIP ---
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
--- NOTE | 2017-05-11 07:58 | REP ---
PA and lateral chest: Comparison is a portable chest dated 02/27/2017. The lung dior are clear. The cardiac size is normal The mahi, mediastinum, and bony thorax are unremarkable. Impression: Negative PA and lateral chest. There is no interval change. Signed by You Caldwell MD 05/11/2017 07:49 A
--- NOTE | 2017-05-12 10:22 | ECGEPIP ---
Stationary ECG Study [facility] - ED Test Date: 2017-05-11 Pat Name: MARINE SOTO Department: Room: - Gender: M Accessioner: : 1965 Requested By: HAMILTON FORTUNE Order Number: [id number] Reading MD: Melvina Navarro Measurements Intervals [place] Rate: 67 P: 57 MD: 206 QRS: 56 QRSD: 84 T: 37 QT: 396 QTc: 421 Interpretive Statements SINUS RHYTHM SIMILAR 05/10/17 Electronically Signed On 05-12-2017 10:22:05 EDT by Melvina Navarro
== END 2017-05-11 03:09 | disposition home or self-care (01) ==
LOC: M ED 20:57
DX: R07.9 Chest pain, unspecified (principal); I10 Essential (primary) hypertension; E78.4 Other hyperlipidemia

== ENCOUNTER → 2017-06-21 | Outpatient (CLI) | payer BC, OTHER ==
[2017-06-21 16:41] LABS: MEAN CORPUSCULAR HEMOGLOBIN 30.2 pg (27.0-33.0); MEAN CORPUSCULAR HGB CONC 34.9 g/dl (32.0-36.5); MEAN CORPUSCULAR VOLUME 86.6 fl (80.0-96.0); PLATELET COUNT, AUTOMATED 207 10^3/uL (150-450); RED CELL DISTRIBUTION WIDTH 13.1 % (11.5-14.5); WHITE BLOOD COUNT 7.4 10^3/uL (4.0-10.0)
[2017-06-21 17:45] LABS: ALBUMIN 3.8 GM/DL (3.2-5.2); ALKALINE PHOSPHATASE 83 U/L (45-117); ALT/SGPT 34 U/L (12-78); AMYLASE 33 U/L (25-115); AST/SGOT 13 U/L (7-37); BILIRUBIN,DIRECT 0.2 MG/DL (0.0-0.2); BILIRUBIN,TOTAL 0.8 MG/DL (0.2-1.0); FERRITIN 32 NG/ML (26-388); PERCENT SATURATION 18.7 % (19.7-50.0); TOTAL IRON BINDING CAPACITY 326 UG/DL (250-450); TOTAL PROTEIN 7.6 GM/DL (6.4-8.2)
[2017-06-21 18:48] LABS: ERYTHROCYTE SEDIMENTATION RATE 2 mm/hr (0-20)
== END ==
LOC: M LAB 16:01
PROVIDERS: ATTEND Nurse Practitioner Family
DX: R10.13 Epigastric pain (principal)

== ENCOUNTER → 2017-08-10 | Outpatient (REF) | payer BC, OTHER | LOC: M LAB REF 15:21 | DX: L03.116 Cellulitis of left lower limb (principal) | CPT/HCPCS: 87186 ==

== ENCOUNTER → 2018-02-09 | Outpatient (REF) | payer OTHER ==
[2018-02-09 14:20] LABS: APPEARANCE, URINE CLEAR (CLEAR); BACTERIA, URINE AUTO NEGATIVE (NEGATIVE); BILIRUBIN, URINE AUTO NEGATIVE (NEGATIVE); BLOOD, URINE BLOOD NEGATIVE (NEGATIVE); COLOR, URINE YELLOW (YELLOW); GLUCOSE, URINE (UA) AUTO NEGATIVE (NEGATIVE); KETONE, URINE AUTO NEGATIVE (NEGATIVE); LEUKOCYTE ESTERASE, URINE AUTO NEGATIVE (NEGATIVE); MUCUS, URINE SMALL (NEGATIVE); NITRITE, URINE AUTO NEGATIVE (NEGATIVE); PROTEIN, URINE AUTO NEGATIVE (NEGATIVE); RBC, URINE AUTO 0 /HPF (0-3); SPECIFIC GRAVITY URINE AUTO 1.024 (1.002-1.035); SQUAMOUS EPITHELIAL CELL UR AU 0 /HPF (0-6); UROBILINOGEN, URINE AUTO 0.2 mg/dL (0.0-2.0); WBC, URINE AUTO 0 /HPF (0-3)
== END ==
LOC: M SMT 13:20
DX: R31.9 Hematuria, unspecified (principal)

== ENCOUNTER 2018-04-15 07:20 | Emergency (ER) | payer BC, OTHER ==
[2018-04-15 07:58] LABS: BASO # 0.1 10^3/uL (0.0-0.2); BASO % 1.1 % (0.0-1.0); EOS # 0.2 10^3/uL (0.0-0.50); EOS % 2.7 % (0.0-3.0); HEMATOCRIT 44.8 % (42.0-52.0); HEMOGLOBIN 15.7 g/dl (13.5-17.5); IMMATURE GRANULOCYTE % 1.3 % (0-3.0); LYMPH # 2.1 10^3/uL (1.5-4.5); LYMPH % 29.5 % (24.0-44.0); MEAN CORPUSCULAR HEMOGLOBIN 30.5 pg (27.0-33.0); MEAN CORPUSCULAR VOLUME 87.2 fl (80.0-96.0); MONO # 0.7 10^3/uL (0.0-0.8); MONO % 9.5 % (0.0-5.0); NEUTROPHILS # 3.9 10^3/uL (1.8-7.7); NEUTROPHILS % 55.9 % (36.0-66.0); PLATELET COUNT, AUTOMATED 189 10^3/uL (150-450); RED BLOOD COUNT 5.14 10^6/uL (4.30-6.10); RED CELL DISTRIBUTION WIDTH 13.1 % (11.5-14.5)
[2018-04-15] MEDS: ASPIRIN 81 MG CHEW TABLET PO (08:03)
[2018-04-15] MEDS: NS 1,000 ML IV (08:03)
[2018-04-15] MEDS: ONDANSETRON 4MG/2ML VIAL (J2405) IV ×3 (08:03→10:30)
[2018-04-15] MEDS: MORPHINE 4 MG/ML 1ML VIAL/SYRINGE (J2270) IV (08:04)
[2018-04-15 08:26] LABS: ALBUMIN 3.9 GM/DL (3.2-5.2); ALBUMIN/GLOBULIN RATIO 1.15 (1.00-1.93); ALKALINE PHOSPHATASE 72 U/L (45-117); ALT/SGPT 34 U/L (12-78); ANION GAP 9 MEQ/L (8-16); AST/SGOT 14 U/L (7-37); BILIRUBIN,DIRECT 0.1 MG/DL (0.0-0.2); BILIRUBIN,TOTAL 0.7 MG/DL (0.2-1.0); BLOOD UREA NITROGEN 13 MG/DL (7-18); CALCIUM LEVEL 9.1 MG/DL (8.5-10.1); CARBON DIOXIDE LEVEL 26 MEQ/L (21-32); CHLORIDE LEVEL 106 MEQ/L (98-107); CK-MB VALUE MASS < 1.0 NG/ML (<3.6); CPK CREATINE PHOSPHOKINASE 64 U/L (39-308); CREATININE FOR GFR 0.99 MG/DL (0.70-1.30); FREE T4 0.96 NG/DL (0.76-1.46); GLOMERULAR FILTRATION RATE > 60.0 (>56); GLUCOSE, FASTING 108 MG/DL (70-100); LIPASE 145 U/L (73-393); MB/CK RELATIVE INDEX 1.56 (< OR =4); POTASSIUM SERUM 4.1 MEQ/L (3.5-5.1); SODIUM LEVEL 141 MEQ/L (136-145); TOTAL PROTEIN 7.3 GM/DL (6.4-8.2); TROPONIN I < 0.02 NG/ML (< 0.10)
[2018-04-15 08:41] LABS: POS COUNT POS FLAG
[2018-04-15] MEDS ORDERED: ISOVUE-370 76% 100ML VIAL (Q9967) As Ordered (09:01)
[2018-04-15 12:54] LABS: INR 0.93; PROTHROMBIN TIME 12.6 SECONDS (12.1-14.4)
[2018-04-15 12:55] LABS: PARTIAL THROMBOPLASTIN TIME 27.7 SECONDS (25.4-37.6)
[2018-04-15 13:16] LABS: CK-MB VALUE MASS < 1.0 NG/ML (<3.6); CPK CREATINE PHOSPHOKINASE 54 U/L (39-308); MB/CK RELATIVE INDEX 1.85 (< OR =4); TROPONIN I < 0.02 NG/ML (< 0.10)
== END 2018-04-15 14:08 | disposition home or self-care (01) ==
LOC: M ED 07:20
DX: R07.89 Other chest pain (principal); I44.0 Atrioventricular block, first degree; I10 Essential (primary) hypertension; E78.5 Hyperlipidemia, unspecified; Z79.82 Long term (current) use of aspirin; Z79.899 Other long term (current) drug therapy
CPT/HCPCS: J2270

== ENCOUNTER 2018-04-27 22:10 | Emergency (ER) | payer BC, OTHER ==
[2018-04-27] MEDS: ONDANSETRON 4MG/2ML VIAL (J2405) IV (22:45)
[2018-04-27] MEDS: ASPIRIN 81 MG CHEW TABLET PO (22:45)
[2018-04-27 22:54] LABS: BASO # 0.1 10^3/uL (0.0-0.2); BASO % 0.8 % (0.0-1.0); EOS # 0.2 10^3/uL (0.0-0.50); EOS % 2.4 % (0.0-3.0); HEMATOCRIT 42.8 % (42.0-52.0); HEMOGLOBIN 15.1 g/dl (13.5-17.5); IMMATURE GRANULOCYTE % 0.6 % (0-3.0); LYMPH % 41.9 % (24.0-44.0); MEAN CORPUSCULAR HEMOGLOBIN 30.4 pg (27.0-33.0); MEAN CORPUSCULAR HGB CONC 35.3 g/dl (32.0-36.5); MEAN CORPUSCULAR VOLUME 86.1 fl (80.0-96.0); MONO # 0.7 10^3/uL (0.0-0.8); MONO % 9.6 % (0.0-5.0); NEUTROPHILS # 3.2 10^3/uL (1.8-7.7); NEUTROPHILS % 44.7 % (36.0-66.0); PLATELET COUNT, AUTOMATED 194 10^3/uL (150-450); RED BLOOD COUNT 4.97 10^6/uL (4.30-6.10); RED CELL DISTRIBUTION WIDTH 13.4 % (11.5-14.5); WHITE BLOOD COUNT 7.1 10^3/uL (4.0-10.0)
[2018-04-27] MEDS: NITROGLYCERIN 0.4 MG SUBL TABLET SL (23:21)
[2018-04-27 23:44] LABS: ANION GAP 8 MEQ/L (8-16); BLOOD UREA NITROGEN 15 MG/DL (7-18); CALCIUM LEVEL 8.7 MG/DL (8.5-10.1); CARBON DIOXIDE LEVEL 27 MEQ/L (21-32); CHLORIDE LEVEL 109 MEQ/L (98-107); CPK CREATINE PHOSPHOKINASE 85 U/L (39-308); CREATININE FOR GFR 0.98 MG/DL (0.70-1.30); GLOMERULAR FILTRATION RATE > 60.0 (>56); GLUCOSE, FASTING 102 MG/DL (70-100); MB/CK RELATIVE INDEX 1.41 (< OR =4); POTASSIUM SERUM 3.7 MEQ/L (3.5-5.1); SODIUM LEVEL 144 MEQ/L (136-145); TROPONIN I < 0.02 NG/ML (< 0.10)
[2018-04-28] MEDS ORDERED: MORPHINE 4 MG/ML 1ML VIAL/SYRINGE (J2270) IV (00:15)
[2018-04-28] MEDS ORDERED: ISOVUE-370 76% 100ML VIAL (Q9967) As Ordered (00:21)
[2018-04-28 05:38] LABS: CPK CREATINE PHOSPHOKINASE 73 U/L (39-308); MB/CK RELATIVE INDEX 1.78 (< OR =4); TROPONIN I < 0.02 NG/ML (< 0.10)
== END 2018-04-28 06:36 | disposition home or self-care (01) ==
LOC: M ED 04-28 06:36
DX: R07.9 Chest pain, unspecified (principal); R11.2 Nausea with vomiting, unspecified; I44.0 Atrioventricular block, first degree; I10 Essential (primary) hypertension; I25.10 Atherosclerotic heart disease of native coronary artery without angina pectoris; K21.9 Gastro-esophageal reflux disease without esophagitis; F41.1 Generalized anxiety disorder; Z79.899 Other long term (current) drug therapy; Z79.82 Long term (current) use of aspirin
CPT/HCPCS: J2405

== ENCOUNTER → 2018-10-13 | Outpatient (CLI) | payer BC, OTHER ==
[~2018-10-13] MED LIST changes: +BYST5TAB2; +NAPR-50 PO; -NAPR500T PO; +OMEP40CA2
--- NOTE | 2018-10-13 11:40 | REP ---
CT Head without contrast HISTORY: Headache COMPARISON: 01/18/2017 There is no intraparenchymal hemorrhage, acute infarct, mass or midline shift. The ventricular system is normal in appearance. There is no extra cerebral collection. There is no fracture. The visualized sinuses are clear. IMPRESSION: There is no intracranial lesion. Electronically Signed by Benny Garcia MD 10/13/2018 11:31 A
== END ==
LOC: M RAD 11:13
PROVIDERS: ATTEND Physician Assistant
DX: H53.8 Other visual disturbances (principal); R51 Headache; I63.9 Cerebral infarction, unspecified

== ENCOUNTER → 2019-04-25 | Outpatient (REF) | payer BC, OTHER ==
[~2019-04-25] MED LIST changes: -NAPR-50 PO; +NAPR-837 PO
[2019-04-25 18:59] LABS: APPEARANCE, URINE CLEAR (CLEAR); BACTERIA, URINE AUTO NEGATIVE (NEGATIVE); BILIRUBIN, URINE AUTO NEGATIVE (NEGATIVE); BLOOD, URINE BLOOD NEGATIVE (NEGATIVE); COLOR, URINE YELLOW (YELLOW); GLUCOSE, URINE (UA) AUTO NEGATIVE (NEGATIVE); KETONE, URINE AUTO NEGATIVE (NEGATIVE); LEUKOCYTE ESTERASE, URINE AUTO NEGATIVE (NEGATIVE); MUCUS, URINE SMALL (NEGATIVE); NITRITE, URINE AUTO NEGATIVE (NEGATIVE); PROTEIN, URINE AUTO NEGATIVE (NEGATIVE); RBC, URINE AUTO 1 /HPF (0-3); SPECIFIC GRAVITY URINE AUTO 1.021 (1.002-1.035); SQUAMOUS EPITHELIAL CELL UR AU 0 /HPF (0-6); UROBILINOGEN, URINE AUTO 0.2 mg/dL (0.0-2.0); WBC, URINE AUTO 0 /HPF (0-3)
[2019-04-26 00:45] LABS: CHLAMYDIA DNA AMPLIFICATION NEGATIVE (NEGATIVE); GC DNA AMPLIFICATION NEGATIVE (NEGATIVE)
== END ==
LOC: M SMT 16:53
PROVIDERS: ATTEND Nurse Practitioner Family
DX: N50.819 Testicular pain, unspecified (principal)

== ENCOUNTER → 2019-05-02 | Outpatient (CLI) | payer BC, OTHER ==
[~2019-05-02] MED LIST changes: -OMEP40CA2; +OMEP40CA97
--- NOTE | 2019-05-03 01:05 | REP ---
Clinical: Testicular pain. Technique: Real time negro scale and color Doppler evaluation using linear high frequency transducer. Findings: The bilateral testicles are symmetric in vascularity without evidence for torsion or infectious/inflammatory process. There is evidence for ductal ectasia (right greater than left) which is a nonspecific finding given the patient's history of prior vasectomy. Small calcification in the right tunica measures 5 mm and likely chronic. Small hydroceles are noted and appear simple/benign. Subtle early left-sided varicoceles on Valsalva measure up to 3 mm diameter. Right testicle measures 4.3 x 2.6 x 3.4 cm. Left testicle measures 5.1 x 2.4 x 3.0 cm. Impression: Nonspecific nonacute findings as described above should be correlated with physical examination. Electronically Signed by Horace Thompson MD 05/03/2019 12:57 A
== END ==
LOC: M RAD 09:00
PROVIDERS: ATTEND Nurse Practitioner Family
DX: N50.819 Testicular pain, unspecified (principal)

== ENCOUNTER 2019-05-19 17:37 | Emergency (ER) | payer BC, OTHER ==
[~2019-05-19] VITALS: Ht 172.7 cm; Wt 102.0 kg
[2019-05-19] MEDS ORDERED: FAMO1TAB11 PO (17:43)
[2019-05-19] MEDS ORDERED: PARO5TAB PO (17:43)
[2019-05-19 18:15] LABS: BASO # 0.1 10^3/uL (0.0-0.2); BASO % 0.7 % (0.0-1.0); EOS # 0.2 10^3/uL (0.0-0.5); EOS % 2.1 % (0.0-3.0); HEMATOCRIT 48.7 % (42.0-52.0); LYMPH # 3.1 10^3/uL (1.5-5.0); LYMPH % 28.4 % (24.0-44.0); MEAN CORPUSCULAR HEMOGLOBIN 30.3 pg (27.0-33.0); MEAN CORPUSCULAR HGB CONC 34.9 g/dl (32.0-36.5); MEAN CORPUSCULAR VOLUME 86.8 fl (80.0-96.0); MONO % 9.1 % (0.0-5.0); NEUTROPHILS # 6.4 10^3/uL (1.5-8.5); NEUTROPHILS % 58.8 % (36.0-66.0); PLATELET COUNT, AUTOMATED 245 10^3/uL (150-450); RED BLOOD COUNT 5.61 10^6/uL (4.30-6.10)
[2019-05-19] MEDS ORDERED: ONDANSETRON 4MG/2ML VIAL (J2405) IV ONE (18:15)
[2019-05-19 18:44] LABS: BILIRUBIN,DIRECT 0.2 MG/DL (0.0-0.2); TOTAL PROTEIN 7.9 GM/DL (6.4-8.2)
[2019-05-19] MEDS ORDERED: NS 1,000 ML IV ONE (18:45)
[2019-05-19] MEDS ORDERED: MORPHINE 4 MG/ML 1ML VIAL/SYRINGE (J2270) As Ordered ONE (18:51)
[2019-05-19] MEDS ORDERED: MORPHINE 4 MG/ML 1ML VIAL/SYRINGE (J2270) IV ONE (19:00)
[2019-05-19] MEDS ORDERED: KETOROLAC 30 MG/ML VIAL (J1885) IV ONE (19:00)
--- NOTE | 2019-05-19 20:27 | REPVR ---
PROCEDURE INFORMATION: Exam: CT Abdomen And Pelvis Without Contrast Exam date and time: 05/19/2019 6:58 PM Clinical history: 53 years old, male; Abdominal pain; Localized; Left; Additional info: Left flank pain/urinary retention TECHNIQUE: Imaging protocol: Computed tomography of the abdomen and pelvis without contrast. Radiation optimization: All CT scans at this facility use at least one of these dose optimization techniques: automated exposure control; mA and/or kV adjustment per patient size (includes targeted exams where dose is matched to clinical indication); or iterative reconstruction. COMPARISON: CT ABD PELVIS W/O CONTRAST 04/10/2013 10:21 AM FINDINGS: Liver: Normal. No mass. Gallbladder and bile ducts: Normal. No calcified stones. No ductal dilation. Pancreas: Normal. No ductal dilation. Spleen: Normal. No splenomegaly. Adrenals: Normal. No mass. Kidneys and ureters: Subcentimeter nonobstructive calculus right kidney. There is a 4 mm. obstructive ureteral calculus located at the inner surface of the UV junction on the left resulting in mild proximal hydroureteronephrosis. There is minimal periureteral and perinephric stranding. No urinoma demonstrated. Stomach and bowel: Unremarkable. No obstruction. No mucosal thickening. Appendix: No evidence of appendicitis. Intraperitoneal space: Unremarkable. No free air. No significant fluid collection. Vasculature: Unremarkable. No abdominal aortic aneurysm. Lymph nodes: Unremarkable. No enlarged lymph nodes. Bladder: Diffuse thickening of the bladder wall most consistent with incomplete distention. Reproductive: The prostate gland demonstrates moderate hyperplasia. Bones/joints: The spine demonstrates mild degenerative changes. Soft tissues: Bilateral inguinal hernias. IMPRESSION: 1. Moderate prostatic hyperplasia. 2. There is a 4 mm. obstructive ureteral calculus located at the inner surface of the UV junction on the left resulting in mild proximal hydroureteronephrosis. There is minimal periureteral and perinephric stranding. No urinoma demonstrated. Electronically signed by: Yosi Kaufman On 05/19/2019 20:26:47 PM
[2019-05-19] MEDS ORDERED: HYDROMORPHONE HCL 0.5 MG/ 0.5 ML SYRINGE (J1170 PER 1) IV ONE (20:30)
[2019-05-19] MEDS ORDERED: FLOM0.4C39 PO (22:39)
[2019-05-19] MEDS ORDERED: PERC5TAB12 PO (22:39)
[2019-05-19] MEDS ORDERED: CIPR-249 PO (22:39)
[2019-05-19] MEDS ORDERED: CIPROFLOXACIN 500 MG TAB PO ONE (22:45)
[2019-05-19] MEDS ORDERED: TAMSULOSIN 0.4 MG CAP PO ONE (22:45)
[2019-05-19 22:48] VITALS: BP 119/73
== END 2019-05-19 22:59 | disposition home or self-care (01) ==
LOC: M ED 17:37
DX: N20.1 Calculus of ureter (principal); I10 Essential (primary) hypertension; K21.9 Gastro-esophageal reflux disease without esophagitis; E78.5 Hyperlipidemia, unspecified; F33.9 Major depressive disorder, recurrent, unspecified; F41.9 Anxiety disorder, unspecified; Z79.899 Other long term (current) drug therapy; Z79.82 Long term (current) use of aspirin
CPT/HCPCS: 74176; 80047; 80076; 81001; 83690; 85025; 96361; 96374; 96375; 99284; J1170; J1885; J2270; J2405

== ENCOUNTER → 2019-06-20 | Outpatient (CLI) | payer BC, OTHER ==
[~2019-06-20] MED LIST changes: +CIPR-249 PO; +FAMO1TAB11 PO; +FLOM0.4C39 PO; +PARO5TAB PO; +PERC5TAB12 PO
--- NOTE | 2019-06-20 09:08 | REPPI ---
Clinical: Nephrolithiasis. Technique: Two supine views of the abdomen and pelvis. Findings: New There is a 4.5 mm calculus overlying the right renal pelvis. Further evaluation of the urinary tract system is somewhat limited due to technique and overlying bowel gas pattern. No obvious ureteral or bladder calculi noted. Bowel gas pattern is nonspecific. Skeletal structures are intact. Impression: 1. 4.5 mm nonobstructing right renal calculus. Electronically Signed by Horace Thompson MD 06/20/2019 08:59 A
[2019-06-20 14:03] LABS: APPEARANCE, URINE CLEAR (CLEAR); BACTERIA, URINE AUTO NEGATIVE (NEGATIVE); BILIRUBIN, URINE AUTO NEGATIVE (NEGATIVE); BLOOD, URINE BLOOD NEGATIVE (NEGATIVE); COLOR, URINE YELLOW (YELLOW); GLUCOSE, URINE (UA) AUTO NEGATIVE (NEGATIVE); KETONE, URINE AUTO NEGATIVE (NEGATIVE); LEUKOCYTE ESTERASE, URINE AUTO NEGATIVE (NEGATIVE); MUCUS, URINE SMALL (NEGATIVE); NITRITE, URINE AUTO NEGATIVE (NEGATIVE); PROTEIN, URINE AUTO NEGATIVE (NEGATIVE); RBC, URINE AUTO 1 /HPF (0-3); SPECIFIC GRAVITY URINE AUTO 1.025 (1.002-1.035); SQUAMOUS EPITHELIAL CELL UR AU 0 /HPF (0-6); UROBILINOGEN, URINE AUTO 0.2 mg/dL (0.0-2.0); WBC, URINE AUTO 1 /HPF (0-3)
== END ==
LOC: M PLAIMG 08:27
PROVIDERS: ATTEND Nurse Practitioner Family
DX: N20.0 Calculus of kidney (principal)

== ENCOUNTER → 2019-06-26 | Outpatient (CLI) | payer BC, OTHER ==
--- NOTE | 2019-06-26 09:52 | REP ---
RENAL ULTRASOUND: Real-time sonographic evaluation of kidneys performed. Kidneys are normal in size and echotexture, right kidney measuring 12.5 x 6.5 x 5.9 cm and left kidney 11.6 x 6.0 x 6.4 cm. There is no hydronephrosis bilaterally. 4.0 mm calculus is seen in the lower pole of the right kidney. No definite calculi are seen on the left. Urinary bladder is only very mildly distended. A left ureteral jet is visualized, but no right ureteral jet is seen. IMPRESSION: No hydronephrosis. 4.0 mm calculus lower pole right kidney. Electronically Signed by You Pickett MD 06/27/2019 10:27 A
== END ==
LOC: M RAD 07:18
PROVIDERS: ATTEND Nurse Practitioner Family
DX: N20.0 Calculus of kidney (principal)

== ENCOUNTER → 2019-07-12 | Outpatient (CLI) | payer BC, OTHER ==
[~2019-07-12] MED LIST changes: -OMEP40CA97; +OMEP40CA97 PO
[2019-07-12 07:57] LABS: HEMATOCRIT 50.3 % (42.0-52.0); HEMOGLOBIN 16.8 g/dl (13.5-17.5); MEAN CORPUSCULAR HEMOGLOBIN 29.8 pg (27.0-33.0); MEAN CORPUSCULAR HGB CONC 33.4 g/dl (32.0-36.5); MEAN CORPUSCULAR VOLUME 89.2 fl (80.0-96.0); PLATELET COUNT, AUTOMATED 213 10^3/uL (150-450); RED BLOOD COUNT 5.64 10^6/uL (4.30-6.10); WHITE BLOOD COUNT 6.4 10^3/uL (4.0-10.0)
[2019-07-12 08:16] LABS: INR 1.03; PARTIAL THROMBOPLASTIN TIME 28.8 SECONDS (25.0-38.4); PROTHROMBIN TIME 13.2 SECONDS (11.8-14.0)
[2019-07-12 08:19] LABS: BLOOD UREA NITROGEN 14 MG/DL (7-18); CALCIUM LEVEL 8.8 MG/DL (8.5-10.1); CARBON DIOXIDE LEVEL 27 MEQ/L (21-32); CHLORIDE LEVEL 108 MEQ/L (98-107); GLOMERULAR FILTRATION RATE > 60.0 (>56); GLUCOSE, FASTING 105 MG/DL (70-100); POTASSIUM SERUM 4.2 MEQ/L (3.5-5.1); SODIUM LEVEL 142 MEQ/L (136-145)
--- NOTE | 2019-07-12 12:07 | REP ---
Clinical: Preoperative assessment. Nephrolithiasis. . Comparison: 04/27/2018 . Technique: PA and lateral. Findings: The mediastinum and cardiac silhouette are normal. The lung dior are clear and without acute consolidation, effusion, or pneumothorax. The skeletal structures are intact and normal. Impression: 1. No acute cardiopulmonary process. Electronically Signed by Horace Thompson MD 07/12/2019 08:38 A
== END ==
LOC: M LAB 07:19
PROVIDERS: ATTEND Nurse Practitioner Family
DX: Z01.818 Encounter for other preprocedural examination (principal); N20.0 Calculus of kidney

== ENCOUNTER 2019-07-19 06:15 | Day surgery (SDC) | payer BC, OTHER ==
[~2019-07-19] VITALS: Ht 172.7 cm; Wt 105.0 kg
[2019-07-19] MEDS ORDERED: ceFAZolin SOD 2 GM in IV 1 EA IV ONE (06:45)
--- NOTE | 2019-07-19 07:10 | REP ---
Clinical: Kidney stone. Technique: Single supine view of the abdomen and pelvis. Findings: 4 mm intrarenal calculus in the right kidney lower pole. Evaluation for further urinary tract calcifications is limited due to technique and overlying bowel gas. No evidence for bowel obstruction. Skeletal structures are intact. No organomegaly. No foreign body. Impression: 4 ml nonobstructing right renal calculus Electronically Signed by Horace Thompson MD 07/19/2019 07:01 A
[2019-07-19] MEDS ORDERED: MIDAZOLAM INJ 2 MG/2 ML VIAL (J2250) As Ordered ONE (07:17)
[2019-07-19] MEDS ORDERED: fentaNYL 100 MCG/2 ML INJECTION (J3010) As Ordered ONE (07:18)
[2019-07-19] MEDS ORDERED: LIDOCAINE 2% INJ 100 MG/5 ML SDV (FOR ANES.) As Ordered ONE (07:20)
[2019-07-19] MEDS ORDERED: ONDANSETRON 4MG/2ML VIAL (J2405) As Ordered ONE ×2 (07:20→07:49)
[2019-07-19] MEDS ORDERED: PROPOFOL 200 MG/20 ML VIAL As Ordered ONE ×2 (07:20→07:49)
--- NOTE | 2019-07-19 08:04 | ECGEPIP ---
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
[2019-07-19 09:30] VITALS: BP 144/80
--- NOTE | 2019-07-19 09:51 | RO ---
DATE OF PROCEDURE: 07/19/2019 PREPROCEDURE DIAGNOSIS: Right kidney stone. POSTPROCEDURE DIAGNOSIS: Right kidney stone. PROCEDURE: Right extracorporeal shock wave lithotripsy. SURGEON: Dr. Cameron Sullivan PRESCHOOL PROGRAM DIRECTOR: None. ANESTHESIA: Monitored anesthesia care (MAC). OPERATIVE INDICATIONS: This is a 53-year-old -year-old male who was found to have an approximately 4 mm nonobstructing right kidney stone. He was brought to the operating room today for treatment. DESCRIPTION OF PROCEDURE: The patient was brought to the operating room and MAC anesthesia was administered. Prophylactic antibiotics were infused. He was then placed in the supine position for a left-sided extracorporeal shock wave lithotripsy. Fluoroscopy was utilized to monitor stone position and fragmentation throughout the procedure. Shock waves were delivered to the right sided kidney stone ungated. The stone did appear to fragment well. After 2500 shocks, the procedure was concluded. The patient was then awakened from anesthesia and transported to the recovery room in stable condition. Estimated blood loss: 0 mL. Complications: None. Specimens: None. Plan: The patient will be followup in the clinic in a few weeks with imaging prior to assess for residual stone burden.
== END 2019-07-19 09:33 | disposition home or self-care (01) ==
LOC: M SDC 06:15
PROVIDERS: ATTEND Urology
DX: N20.0 Calculus of kidney (principal); I10 Essential (primary) hypertension; E78.00 Pure hypercholesterolemia, unspecified; K21.9 Gastro-esophageal reflux disease without esophagitis; Z79.82 Long term (current) use of aspirin; Z79.899 Other long term (current) drug therapy
CPT/HCPCS: 50590; 74018; 93005; J0690; J2250; J2405; J3010

== ENCOUNTER → 2019-08-15 | Outpatient (CLI) | payer BC, OTHER ==
--- NOTE | 2019-08-16 01:41 | REP ---
Clinical: Nephrolithiasis. Technique: Two supine views of the abdomen and pelvis. Comparison: 07/19/2019. Findings: No obvious urinary tract calcification identified. Previously suggested nonobstructing right renal calculus not visualized on current examination. Bowel gas pattern is nonspecific. No obvious organomegaly. No foreign body. Skeletal structures intact. Impression: No obvious urinary tract calcification noted. Electronically Signed by Horace Thompson MD 08/16/2019 01:32 A
== END ==
LOC: M RAD 09:06 → M LAB 09:06
PROVIDERS: ATTEND Nurse Practitioner Family
DX: N20.0 Calculus of kidney (principal)

== ENCOUNTER → 2019-10-21 | Outpatient (CLI) | payer BC, OTHER ==
[2019-10-21 12:15] LABS: FREE T4 1.08 NG/DL (0.76-1.46); THYROID STIMULATING HORMONE 1.19 uIU/ML (0.358-3.740)
[2019-10-22 09:54] LABS: FOLATE 23.7 NG/ML
== END ==
LOC: M LAB 11:21
PROVIDERS: ATTEND Psychiatry & Neurology Neurology
DX: E07.9 Disorder of thyroid, unspecified (principal); R25.1 Tremor, unspecified; R51 Headache

== ENCOUNTER → 2020-01-10 | Outpatient (REF) | payer OTHER, BC ==
[2020-01-31 14:36] LABS: APPEARANCE, URINE CLEAR (CLEAR); COLOR, URINE YELLOW (YELLOW); GLUCOSE, URINE (UA) AUTO NEGATIVE (NEGATIVE); KETONE, URINE AUTO NEGATIVE (NEGATIVE); PROTEIN, URINE AUTO NEGATIVE (NEGATIVE); SPECIFIC GRAVITY URINE AUTO 1.024 (1.002-1.035)
[2020-01-31 14:37] LABS: BACTERIA, URINE AUTO NEGATIVE (NEGATIVE); BILIRUBIN, URINE AUTO NEGATIVE (NEGATIVE); BLOOD, URINE BLOOD NEGATIVE (NEGATIVE); LEUKOCYTE ESTERASE, URINE AUTO NEGATIVE (NEGATIVE); NITRITE, URINE AUTO NEGATIVE (NEGATIVE); RBC, URINE AUTO 0 /HPF (0-3); SQUAMOUS EPITHELIAL CELL UR AU 0 /HPF (0-6); UROBILINOGEN, URINE AUTO 0.2 mg/dL (0.0-2.0); WBC, URINE AUTO 0 /HPF (0-3)
[2020-01-31 14:38] LABS: MUCUS, URINE SMALL (NEGATIVE)
== END ==
LOC: M SMT 10:37
PROVIDERS: ATTEND Nurse Practitioner Family
DX: N20.0 Calculus of kidney (principal)

== ENCOUNTER 2020-01-29 10:58 | Emergency (ER) | payer OTHER, BC ==
[~2020-01-29] VITALS: Ht 172.7 cm; Wt 106.0 kg
[~2020-01-29 10:58] MED LIST changes: -ASPI81TA85 PO; +ASPI81TA86 PO
[2020-01-29 12:51] VITALS: BP 130/83
--- NOTE | 2020-01-29 14:41 | REP ---
RIGHT SHOULDER THREE VIEWS: There is no evidence of an acute fracture, dislocation, or intrinsic bone disease. IMPRESSION: No fracture or dislocation. Electronically Signed by You Pickett MD 01/30/2020 04:46 P
== END 2020-01-29 12:53 | disposition home or self-care (01) ==
LOC: M ED 10:58
DX: S46.911A Strain of unspecified muscle, fascia and tendon at shoulder and upper arm level, right arm, initial encounter (principal); X50.9XXA Other and unspecified overexertion or strenuous movements or postures, initial encounter; Y92.89 Other specified places as the place of occurrence of the external cause; Y99.0 Civilian activity done for income or pay; I10 Essential (primary) hypertension; E78.5 Hyperlipidemia, unspecified; F41.9 Anxiety disorder, unspecified; Z79.899 Other long term (current) drug therapy; Z79.82 Long term (current) use of aspirin

== ENCOUNTER → 2020-03-07 | Outpatient (CLI) | payer BC, OTHER ==
[~2020-03-07] MED LIST changes: +PROHANCE 279.3MG/ML 15ML VIAL As Ordered ONE; +PROHANCE 279.3MG/ML 5ML VIAL As Ordered ONE
--- NOTE | 2020-03-07 16:10 | REPVR ---
PROCEDURE INFORMATION: Exam: MR Abdomen Without and With Contrast Exam date and time: 03/07/2020 9:13 AM Age: 54 years old Clinical indication: Condition or disease; Pancreatic condition; Idiopathic; Patient HX: HX pancreatitis pain in abd TECHNIQUE: Imaging protocol: MR of the abdomen without and with intravenous contrast. Contrast material: PROHANCE; Contrast volume: 19 ml; Contrast route: INTRAVENOUS (IV); COMPARISON: CT ABD PELVIS W/O CONTRAST 05/19/2019 6:59 PM FINDINGS: Liver: The liver is moderately fatty minimally enlarged 173 mm. Gallbladder and bile ducts: Unremarkable. No stones. No ductal dilation. Pancreas: Unremarkable. No ductal dilation. Spleen: Unremarkable. No splenomegaly. Adrenals: Unremarkable. No mass. Kidneys and ureters: Unremarkable. No solid mass. No hydronephrosis. Stomach and bowel: Visualized stomach and intestines are unremarkable. Intraperitoneal space: No free fluid. Arteries: No abdominal aortic aneurysm. Bones/joints: Unremarkable. Soft tissues: Unremarkable. IMPRESSION: Unremarkable abdomen. Electronically signed by: Abraham Craven On 03/07/2020 16:10:51 PM
== END ==
LOC: M RAD 07:46
PROVIDERS: ATTEND Internal Medicine Gastroenterology
DX: K85.90 Acute pancreatitis without necrosis or infection, unspecified (principal)
CPT/HCPCS: 74183; A9576

== ENCOUNTER → 2020-08-22 | Outpatient (CLI) | payer BC, OTHER ==
[~2020-08-22] MED LIST changes: +CITA10TA5 PO; +ECOT81TA5 PO; +ESCI10TA16 PO; -ESCI10TA2 PO; +NORT10CA2 PO; -PROHANCE 279.3MG/ML 15ML VIAL As Ordered ONE; -PROHANCE 279.3MG/ML 5ML VIAL As Ordered ONE
== END ==
LOC: M LABSMTC 12:26
PROVIDERS: ATTEND Anesthesiology
DX: Z01.812 Encounter for preprocedural laboratory examination (principal); Z20.822 Contact with and (suspected) exposure to COVID-19

== ENCOUNTER 2020-08-27 06:14 | Day surgery (SDC) | payer BC, OTHER ==
[~2020-08-27] VITALS: Ht 172.7 cm; Wt 104.3 kg
[~2020-08-27 06:14] MED LIST changes: +LR 1,000 ML IV ONE; +ceFAZolin SOD 2 GM in IV 1 EA IV ONE
--- OUTSIDE RECORDS SUMMARY | 2020-08-27 06:17 | CCD | Continuity of Care Document ---
Author Author Jose Francisco JAIMES [facility] Organization Unknown Address 3 [facility] [address] [place] [address] Phone [phone] Problems Active Problems Provider Date Hyperlipidemia Elkin Morton DO Onset: 02/14/2004 History of polyp of colon David Jaimes RPA Onset: 10/17 Gastric polyp David Jaimes RPA Onset: 11/05/2016 Iron deficiency David Jaimes RPA Onset: 06/22/2017 Nocturia David Jaimes RPA Onset: 10/12/2017 Gastro-esophageal reflux disease with esophagitis Laura Jaimes RPA Onset: 01/24/2018 Gastro-esophageal reflux disease with esophagitis, wit hout bleeding David Jaimes RPA Onset: 04/30/2020 Panic disorder without agoraphobia David Jaimes RPA On set: 07/23/2019 Anxiety state David Jaimes RPA Onset: 03/21/2019 Essential tremor David Jaimes RPA Onset: 03/07/2019 Subarachnoid hemorrhage David Jaimes RPA Onset: 2018 Essential hypertension David Jaimes RPA Onset: 019 Social History Type Date Description Comments Sex Unknown Tobacco Use Start: Unknown Never Smoked Cigarettes ETOH Use current.liquor.occasionally Recreational Drug Use Never Used Drugs Tobacco Use Start: Unknown Patient has never smoked Exercise Type/Frequency Plays golf sporadically Exercise Type/Frequency Jogs daily Exercise Type/Frequency Lifts weights 2 times a week Exercise Type/Frequency Walks daily Allergies, Adverse Reactions, Alerts Active Allergies Reaction Severity Comments Date Bactrim Swelling face. 05/29/2015 Inactive Allergies NKDA 11/13/2003 Medications Active Medications SIG Qnty Indications Ordering Provide r Date Citalopram Hydrobromide 10mg Table ts 1 by mouth every day at bedtime 30tabs Tyrese Amin D.O. , [facility] 08/13/2020 Buspirone HCL 5mg Tablets 1 by mouth three times a day as needed anxiety 90tabs Juli Callejas, [facility] 08/13/2020 Famotidine 40mg Tablets take 1/2 tablet by mouth every night at bedtime 90tabs Colin Callejas, [facility] 06/06/2019 Atorvastatin Calcium 10mg Tablets Take One Tablet By Mouth Every Day 90tabs L08.0 [facility]., [facility] 05/28/[address] take one capsule by mouth every day 90caps L08.0 Tyrese Amin D.O. , [facility] 01/17/[address] 1 by mouth every day OTC Unknown Nortriptyline HCL 10mg Capsules take 2 capsules by mouth at night Unknown 0000 History Medications Azelastine HCL (Nasal) 0.1% Soluti on one nasal inhalation each nostril twice a day 30ml [facility]el [facility]., [facility] 06/03/2020 - 08/13/2020 Zyrtec Allergy 10mg Tablets 1 by mouth every night at bedtime 30tabs Tyrese Amin D.O., [facility] 06/03/2020 - 08/13/2020 Immunizations CPT Code Status Date Vaccine Reaction Lot # [id number] Given 06/05/2008 MMR Mumps, Measles, Rubella Virus Im munization [id number] Refused 04/30/2020 Influenza Virus Vaccine, Quadrivalent, Slit Virus, Im Use 3Y & Up RECEIVED 04/28/2020 @ [facility]. [id number] Refused 05/13/2016 Influenza Virus Vaccine, Quadrivalent, Slit Virus, Im Use 3Y & Up Vital Signs Date Vital Result Comment 08/13/2020 1:11pm BP Systolic 132 mmHg BP Diastolic 94 mmHg Body Temperature 97.5 F Heart Rate 100 /min Respiratory Rate 16 /min Height 68 inches 5'8" Weight 235.00 lb [place] Body Weight 154 lb BMI (Body Mass Index) 35.7 kg/m2 O2 % BldC Oximetry 98 % 06/03/2020 10:51am BP Systolic 140 mmHg BP Diastolic 64 mmHg Body Temperature 97.4 F Heart Rate 98 /min Respiratory Rate 18 /min Height 68 inches 5'8" Weight 230.00 lb [place] Body Weight 154 lb BMI (Body Mass Index) 35.0 kg/m2 O2 % BldC Oximetry 97 % Results Test Acquired Date Facility Test Result H/L Range Note CBC 06/03/2020 [facility] WBC 4.4 10E3/uL 4.1 - 10.9 1 RBC 5.48 10E6/uL 4.20 - 6.30 HGB 16.8 g/dL 12.0 - 18.0 HCT 48.8 % 37.0 - 51.0 MCV 89.1 fL 80.0 - 97.0 MCH 30.7 pg 26.0 - 32.0 MCHC 34.4 g/dL 31.0 - 36.0 PLT 217 10E3/uL 140 - 440 RDW-CV 13.8 % 11.5 - 14.5 Lym% 27.1 % 10.0 - 58.5 Neut% 60.2 % 37.0 - 92.0 MXD% 12.7 % 0.1 - 24.0 Lym# 1.2 10E3/uL 0.6 - 4.1 Neut# 2.6 % 2.0 - 7.8 MXD# 0.6 10E3/uL 0.0 - 1.8 MPV 11.1 fL 9.0 - 13.0 Laboratory test finding 04/30/2020 [facility] PSA, Total 0.60 ng/mL 0.0 - 4.0 CMP 04/30/2020 [facility] Glu 93 mg/dL 70 - 110 2 BUN 13 mg/dL 8 - 23 Creat 1.0 mg/dL 0.7 - 1.2 BUN/Creatinine Ratio 12.7 CALC Na 139 mmol/L 136 - 145 K 4.4 mmol/L 3.5 - 5.1 CL 102.3 mmol/L 98.0 - 107.0 Co2 22.5 mmol/L 22.0 - 29.0 CA 9.6 mg/dL 8.6 - 10.2 TP 7.2 g/dL 6.6 - 8.7 Alb 4.3 g/dL 3.5 - 5.2 A/G Ratio 1.5 CALC Globulin 2.8 CALC Alp 83.2 U/L 40 - 129 Alt (SGPT) 38 U/L 0 - 41 Ast (Sgot) 21 U/L 0 - 40 Tbili 0.63 mg/dL 0.0 - 1.2 Osmolality-Calculated 277.6 CALC Anion Gap 19 mmol/L eGFR 98 # Calc 3 eGFR Non-Afr. Botswanan 85 # Calc 4 Lipid Panel 04/30/2020 [facility] Chol 153 mg/dL 0 - 200 Trig 159 mg/dL 35 - 200 HDL 44 mg/dL 35 - 55 LDL_C 78 Calc 75 - 129 Cho/HDL Ratio 3.5 CALC Laboratory test finding 04/30/2020 [facility] TSH 1.553 ulU/mL 0.60 - 4.8 1 NORMAL RANGES Age WBC RBC HGB HCT MCV PLT Adult M 4.1-10.9 4.20-6.30 12.0-18.0 37.0-51.0 80-97 140-440 Adult F 4.1-10.9 4.04-5.48 12.0-18.0 37.0-51.0 80-97 140-440 0 -1 Yr 5.0-20.0 3.9-5.9 15-18 MV: 44 MV: 91 MV: 277 2-9 Yr. 6.0-17.0 3.8-5.4 11-13 MV: 37 MV: 78 MV: 300 10 Yrs. 5.0-13.0 3.8-5.4 12-15 MV: 39 MV: 80 MV: 250 NOTE: * FOR ADULT BLACK MALES AND FEMALES, NORMAL WBC IS 2.9-7.7 K/ML * FOR ADULT BLACK MALES AND FEMALES, NORMAL RBC,HGB, AND HCT IS 5% LESS SOURCE FOR DATA: [employer] DYN 1800 OPERATION MANUAL( AUTOMATED BLOOD COUNTS AND DIFF.) APPENDIX B-3 2 CHRONIC KIDNEY DISEASE STAGI NG PER NKF: MALE GFR INTERPRETATION: 20-49 YRS: >60 mL/min Normal 50-59 YRS: >56 mL/min Normal 60-69 YRS: >49 mL/min Normal 70-79 YRS: >42 mL/min Normal 80 and above >35 mL/min Normal FEMALE GRF INTERPRETATION: 20-39 YRS: >60 mL/min Normal 40-49 YRS: >58 mL/min Normal 50-59 YRS: >51 mL/min Normal 60-69 YRS: >45 mL/min Normal 70-79 YRS: >39 mL/min Normal 80 and above >32 mL/min NormalCLASSIFICATION CHOLESTEROL FOR ADULTS CHILDREN/ADOLESCENTS* DESIRABLE: <200 MG/DL <170 MG/DL BORDER-LINE HIGH RISK: 200-239 MG/DL 170-199 MG/DL HIGH RISK: >240 MG/DL >200 MG/DL CLASS. FOR PRIMARY LDL CHOL PREVENTION: LDL CHOL-CHILD/ADOLESCENTS* DESIRABLE: <130 MG/DL <110 MG/DL BORDERLINE-HIGH RISK: 130-159 MG/DL 110-129 MG/DL HIGH RISK: >160 MG/DL >130 MG/DL *CHILDREN AND ADOLESCENTS REPRESENTS INDIVIDUALA AGED 2-19 YEARS EXCLUSIVE. 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 G25.0 Essential tremor F41.9 Anxiety disorder, unspecifie d F41.0 Panic disorder [episodic par oxysmal anxiety] R35.1 Nocturia Office Visit 06/03/2020 10:40a [place] Trang Fajardo PA R09.81 Nasal congestion H92.09 Otalgia, unspecified ear I10 Essential (primary) hyperten rosina Office Visit 04/30/2020 4:00p [place] [facility] David Jaimes, RP A I10 Essential (primary) hypertension E78.5 Hyperlipidemia, unspecified E61.1 Iron deficiency K21.00 Gastro-esophageal reflux dis with esophagitis, without bleed 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 G25.0 Essential tremor F41.9 Anxiety disorder, unspecifie d F41.0 Panic disorder [episodic par oxysmal anxiety] R35.1 Nocturia Assessments Date Code Description Provider 08/13/2020 I10 Essential (primary) hypertension David Jaimes, RPA 08/13/2020 E78.5 Hyperlipidemia, unspecified David Tineo, RPA 08/13/2020 E61.1 Iron deficiency David Jaimes, RPA 08/13/2020 K21.00 Gastro-esophageal re flux disease with esophagitis, without bleeding David Jaimes, RPA 08/13/2020 I60.4 Nontraumatic subarachnoid hemorr cecilio from basilar artery David Jaimes, RPA 08/13/2020 G25.0 Essential tremor David Jaimes, RPA 08/13/2020 F41.9 Anxiety disorder, unspecified David Lowe, RPA 08/13/2020 F41.0 Panic disorder [episodic paroxys mal anxiety] David Jaimes, RPA 08/13/2020 R35.1 Nocturia David Jaimes, RPA 06/03/2020 R09.81 Nasal congestion Sa leena Fajardo PA 06/03/2020 H92.09 Otalgia Nam Fajardo PA 06/03/2020 I10 Essential (primary) hypertension Effie Fajardo PA 04/30/2020 I10 Essential (primary) hypertension David Jaimes, RPA 04/30/2020 E78.5 Hyperlipidemia, unspecified David Tineo, RPA 04/30/2020 E61.1 Iron deficiency David Jaimes, RPA 04/30/2020 K21.00 Gastro-esophageal re flux disease with esophagitis, without bleeding David Jaimes, RPA 04/30/2020 I60.4 Nontraumatic subarachnoid hemorr cecilio from basilar artery David Jaimes, RPA 04/30/2020 G25.0 Essential tremor David Jaimes, RPA 04/30/2020 F41.9 Anxiety disorder, unspecified David Lowe, RPA 04/30/2020 F41.0 Panic disorder [episodic paroxys mal anxiety] David Jaimes, RPA 04/30/2020 R35.1 Nocturia David Jaimes, RPA Plan of Treatment No Information Available Functional Status Description No Information Available Mental Status Description No Information Available Referrals Description No Information Available
--- OUTSIDE RECORDS SUMMARY | 2020-08-27 06:18 | CCD | Continuity of Care Document ---
Author Author Jose Francisco CRANE PA Organization Unknown Address [address] [address] Phone [phone] Problems Active Problems Provider Date Hyperlipidemia Elkin [...] SIG Qnty Indications Ordering Provide r Date Azelastine HCL (Nasal) 0.1% Soluti on one nasal inhalation each nostril twice a day 30ml Kenneo Amin D.O., [facility] 06/03/2020 Zyrtec Allergy 10mg Tablets 1 by mouth every night at bedtime 30tabs Tyrese Amin D.O., [facility] 06/03/2020 Baclofen 10mg Tablets take 1 tablet by mouth every at bedtime 30tabs Tyrese Amin D.O., [facility] 01/01/2020 Paroxetine HCL 20mg Tablets 1 by mouth every day (replaces 10mg dose 07/23/19) 30tabs [facility]., [facility] 07/23/2019 Famotidine 40mg Tablets take 1/2 tablet by mouth every night at bedtime 90tabs Colin Callejas, [facility] 06/06/2019 Ferrous Gluconate 324(38Fe) mg Tab lets 1 by mouth every day 30tabs Tyrese Amin D.O., [facility] 10/12/2017 Atorvastatin Calcium 10mg Tablets Take One Tablet By Mouth Every Day 90tabs L08.0 Tyrese Amin D.O., [facility] 05/28/[address] take one capsule by mouth every day 90caps L08.0 [facility].O. , [facility] 01/17/[address] 1 by mouth every day OTC Unknown Immunizations CPT Code Status Date Vaccine Reaction Lot # [id number] Given 06/05/2008 MMR Mumps, Measles, Rubella Virus Im munization [id number] Refused 04/30/2020 Influenza Virus Vaccine, Quadrivalent, Slit Virus, Im Use 3Y & Up RECEIVED 04/28/[address] [facility]. [address] Refused 05/13/2016 Influenza Virus Vaccine, Quadrivalent, Slit Virus, Im Use 3Y & Up Vital Signs Date Vital Result Comment 06/03/2020 10:51am BP Systolic 140 mmHg BP Diastolic 64 mmHg Body Temperature 97.4 F Heart Rate 98 /min Respiratory Rate 18 /min Height 68 inches 5'8" Weight 230.00 lb [place] Body Weight 154 lb BMI (Body Mass Index) 35.0 kg/m2 O2 % BldC Oximetry 97 % 04/30/2020 3:57pm BP Systolic 130 mmHg BP Diastolic 86 mmHg Body Temperature 97.6 F Heart Rate 116 /min Respiratory Rate 18 /min Height 68 inches 5'8" Weight 237.00 lb [place] Body Weight 154 lb BMI (Body Mass Index) 36.0 kg/m2 O2 % BldC Oximetry 97 % Results Test Acquired Date Facility Test Result H/L Range Note Laboratory test finding 04/30/2020 [facility] PSA, Total 0.60 ng/mL 0.0 - 4.0 CMP 04/30/2020 [facility] Glu 93 mg/dL 70 - 110 1 BUN 13 mg/dL 8 - 23 Creat [...] Gap 19 mmol/L eGFR 98 # Calc 2 eGFR Non-Afr. Georgian 85 # Calc 3 Lipid Panel 04/30/2020 [facility] Chol 153 mg/dL 0 - 200 Trig 159 mg/dL 35 - 200 HDL 44 mg/dL 35 - 55 LDL_C 78 Calc 75 - 129 Cho/HDL Ratio 3.5 CALC Laboratory test finding 04/30/2020 [facility]house TSH 1.553 ulU/mL 0.60 - 4.8 1 CHRONIC KIDNEY DISEASE STAGI NG PER NKF: [...] ADOLESCENTS REPRESENTS INDIVIDUALA AGED 2-19 YEARS EXCLUSIVE. 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 G25.0 Essential tremor F41.9 Anxiety disorder, unspecifie d F41.0 Panic disorder [episodic par oxysmal anxiety] R35.1 Nocturia Office Visit 01/01/2020 4:00p [place] [facility] David Jaimes, RP A I10 Essential (primary) hypertension E78.5 Hyperlipidemia, unspecified E61.1 Iron deficiency K21.0 Gastro-esophageal reflux dis ease with esophagitis 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 G25.0 Essential tremor F41.9 Anxiety disorder, unspecifie d F41.0 Panic disorder [episodic par oxysmal anxiety] M54.5 Low back pain Assessments Date Code Description Provider 04/30/2020 I10 Essential (primary) hypertension David Jaimes, [...] RPA 04/30/2020 R35.1 Nocturia David Jaimes, RPA 01/01/2020 I10 Essential (primary) hypertension David Jaimes, RPA 01/01/2020 E78.5 Hyperlipidemia, unspecified David Tineo, RPA 01/01/2020 E61.1 Iron deficiency David Jaimes, RPA 01/01/2020 K21.0 Gastro-esophageal reflux disease with esophagitis David Jaimes, RPA 01/01/2020 I60.4 Nontraumatic subarachnoid hemorr cecilio from basilar artery David Jaimes, RPA 01/01/2020 G25.0 Essential tremor David Jaimes, RPA 01/01/2020 F41.9 Anxiety disorder, unspecified David Lowe, RPA 01/01/2020 F41.0 Panic disorder [episodic paroxys mal anxiety] David Jaimes, RPA 01/01/2020 M54.5 Low back pain David Jaimes, [facility] Plan of Treatment No Information Available Functional Status Description No Information Available Mental Status Description No Information Available Referrals Description No Information Available
--- OUTSIDE RECORDS SUMMARY | 2020-08-27 06:18 | CCD | Continuity of Care Document ---
Author Author Jose Francisco RODRÍGUEZOEfraín Organization Unknown Address [address] [place] [address] Phone [phone] Problems Active Problems Provider Date Hyperlipidemia Elkin Morton DO Onset: 02/14/2004 History of polyp of colon David Jaimes RPA Onset: 10/17 Gastric polyp David Jaimes RPA Onset: 11/05/2016 Iron deficiency David Jaimes, [facility] Onset: 06/22/2017 Nocturia David Jaimes, RPA Onset: 10/12/2017 Gastro-esophageal reflux disease with esophagitis Laura Jaimes RPA Onset: 01/24/2018 Gastro-esophageal reflux disease with esophagitis, wit hout bleeding David Jaimes RPA Onset: 04/30/2020 Panic disorder without agoraphobia David Jaimes RPA On set: 07/23/2019 Anxiety state David Jaimes RPA Onset: 03/21/2019 Essential tremor David Jaimes RPA Onset: 03/07/2019 Subarachnoid hemorrhage David Jaimes RPA Onset: 2018 Essential hypertension David Jaimes, RPA Onset: 019 Social History Type Date [...] inhalation each nostril twice a day 30ml [place] Rosa M Rodríguez D.O., [facility] 06/03/2020 Zyrtec Allergy 10mg Tablets 1 by mouth every night at bedtime 30tabs Tyrese Rodríguez D.O., [facility] 06/03/2020 Baclofen 10mg Tablets take 1 tablet by mouth every at bedtime 30tabs Tyrese Rodríguez D.O., [facility] 01/01/2020 Paroxetine HCL 20mg Tablets 1 by mouth every day (replaces 10mg dose 07/23/19) 30tabs Tyrese Rodríguez D.O., [facility] 07/23/2019 Famotidine 40mg Tablets take 1/2 tablet by mouth every night at bedtime 90tabs Colin Callejas., [facility] 06/06/2019 Ferrous Gluconate 324(38Fe) mg Tab lets 1 by mouth every day 30tabs Tyrese Rodríguez D.O., [facility] 10/12/2017 Atorvastatin Calcium 10mg Tablets Take One Tablet By Mouth Every Day 90tabs L08.0 Tyrese Rodríguez D.O., [facility] 05/28/[address] take one capsule by mouth every day 90caps L08.0 Tyrese Rodríguez D.O. , [facility] 01/17/[address] 1 by mouth every day OTC Unknown Immunizations CPT Code Status Date Vaccine Reaction Lot # [id number] Given 06/05/2008 MMR Mumps, Measles, Rubella Virus Im munization [id number] Refused 04/30/2020 Influenza Virus Vaccine, Quadrivalent, Slit Virus, Im Use 3Y & Up RECEIVED 04/28/2020 @ [facility]. [address] Refused 05/13/2016 Influenza Virus Vaccine, Quadrivalent, Slit Virus, Im Use 3Y & Up Vital Signs Date Vital Result Comment 06/03/2020 10:51am BP Systolic 140 mmHg BP Diastolic 64 mmHg Body Temperature 97.4 F Heart Rate 98 /min Respiratory Rate 18 /min Height 68 inches 5'8" Weight 230.00 lb [place] Body Weight 154 lb BMI (Body Mass Index) 35.0 kg/m2 O2 % BldC Oximetry 97 % 04/30/2020 3:57pm BP Systolic 130 mmHg BP Diastolic 86 mmHg Body Temperature 97.6 F Heart Rate 116 /min Respiratory Rate 18 /min Height 68 inches 5'8" Weight 237.00 lb [place] Body Weight 154 lb BMI (Body Mass [...] eGFR 98 # Calc 3 eGFR Non-Afr. 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 G25.0 Essential tremor F41.9 Anxiety disorder, unspecifie d F41.0 Panic disorder [episodic par oxysmal anxiety] R35.1 Nocturia Office Visit 01/01/2020 4:00p [facility] David Jaimes, RP A I10 Essential (primary) hypertension E78.5 Hyperlipidemia, unspecified E61.1 Iron deficiency K21.0 Gastro-esophageal reflux dis ease with esophagitis 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 G25.0 Essential tremor F41.9 Anxiety disorder, unspecifie d F41.0 Panic disorder [episodic par oxysmal anxiety] M54.5 Low back pain Assessments Date Code Description Provider 06/03/2020 R09.81 Nasal congestion Sa leena Fajardo PA 06/03/2020 H92.09 Otalgia Nam Fajardo PA 04/30/2020 I10 Essential (primary) hypertension [...] Jaimes, RPA 01/01/2020 F41.9 Anxiety disorder, unspecified Hi David liu, RPA 01/01/2020 F41.0 Panic disorder [episodic paroxys mal anxiety] David Jaimes, RPA 01/01/2020 M54.5 Low back pain David Jaimes, RPA Plan of Treatment No Information Available Functional Status Description No Information Available Mental Status Description No Information Available Referrals Description No Information Available
--- OUTSIDE RECORDS SUMMARY | 2020-08-27 06:18 | CCD | Continuity of Care Document ---
Author Author Jose Francisco FAJARDO PA Organization Unknown Address [address] [address] Phone [phone] Problems Active Problems Provider Date Hyperlipidemia Elkin [...] Jaimes RPA Onset: 2018 Essential hypertension David Jaimse RPA Onset: 019 Social History Type Date [...] twice a day 30ml Kenneo Amin D.O., [facility] 06/03/2020 Zyrtec Allergy 10mg Tablets 1 by mouth every night at bedtime 30tabs Tyrese Amin D.O., [facility] 06/03/2020 Baclofen 10mg Tablets take 1 tablet by mouth every at bedtime 30tabs Tyrese Amin D.O., [facility] 01/01/2020 Paroxetine HCL 20mg Tablets 1 by mouth every day (replaces 10mg dose 07/23/19) 30tabs [facility] 07/[facility]2019 Famotidine 40mg Tablets take 1/2 tablet by mouth every night at bedtime 90tabs Colin Callejas, [facility] 06/06/2019 Ferrous Gluconate 324(38Fe) mg Tab lets 1 by mouth every day 30tabs Tyrese Amin D.O., [facility] 10/12/2017 Atorvastatin Calcium 10mg Tablets Take One Tablet By Mouth Every Day 90tabs L08.0 Tyrese Amin D.O., [facility] 05/28/[address] Take One Capsule By Mouth Every Day 90caps L08.0 [facility] , [facility] 01/17/[address] 1 by mouth every day OTC Unknown Immunizations CPT Code Status Date Vaccine Reaction Lot # [id number] Given 06/05/2008 MMR Mumps, Measles, Rubella Virus Im munization [id number] Refused 04/30/2020 Influenza Virus Vaccine, Quadrivalent, Slit Virus, Im Use 3Y & Up RECEIVED 04/28/2020 @ [facility]. [address] Refused 05/13/2016 Influenza Virus Vaccine, Quadrivalent, Slit Virus, Im Use 3Y & Up Vital Signs Date Vital Result Comment 06/03/2020 10:51am BP Systolic 140 mmHg BP Diastolic 64 mmHg Body Temperature 97.4 F Heart Rate 98 /min Respiratory Rate 18 /min Height 68 inches 5'8" Weight 230.00 lb [place] Body Weight 154 lb BMI (Body Mass Index) 35.0 kg/m2 O2 % BldC Oximetry 97 % 04/30/2020 3:57pm BP Systolic 130 mmHg BP Diastolic 86 mmHg Body Temperature 97.6 F Heart Rate 116 /min Respiratory Rate 18 /min Height 68 inches 5'8" Weight 237.00 lb [place] Body Weight 154 lb BMI (Body Mass [...] eGFR 98 # Calc 3 eGFR Non-Afr. 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
--- OUTSIDE RECORDS SUMMARY | 2020-08-27 06:18 | CCD | Continuity of Care Document ---
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 AUTM [phone] Problems Description No Information Available Social History Type Date Description Comments Sex Unknown ETOH Use Rarely consumes alcohol Tobacco Use Start: Unknown Denies Smoking Allergies, Adverse Reactions, Alerts Description No Known Drug Allergies Medications Active Medications SIG Qnty Indications Ordering Provide r Date Ranitidine HCL 300mg Tablets Take One Tablet By Mouth Every Day Unknown Naproxen 500mg Tablets David Jaimes R.P.A.-C. Doxycycline Hyclate 100mg Capsules David Jaimes R.P.A.-C. Escitalopram Oxalate 10mg Tablets Take One Tablet By Mouth Every Day Unknown Ciprofloxacin HCL 500mg Tablets Take One Tablet By Mouth Twice A Day Unknown Paroxetine HCL 10mg Tablets David Jaimes R.P.A.-C. Famotidine 20mg Tablets David Jaimes R.P.A.-C. Paroxetine HCL 20mg Tablets Take One Tablet By Mouth Every Day Unknown Omeprazole 40mg Capsules David Raygoza R.P.A.-C. Atorvastatin Calcium 10mg Tablets David Jaimes R.P.A.-C. Famotidine 40mg Tablets Take 1/2 Tablet By Mouth AT Bedtime Unknown Baclofen 10mg Tablets Take One Tablet By Mouth AT Bedtime Unknown Tamsulosin HCL 0.4mg Capsules Unknown Oxycodone-Acetaminophen 5-325mg Tablets Unknown SM Aspirin Adult Low Strength 81mg Tablets DR Take One Tablet By Mouth Once Daily Unkno wn Nortriptyline HCL 10mg Capsules Take 2 Capsules By Mouth AT Bedtime Unknown Diclofenac Sodium 1% Gel Marlys Reynoso MD Immunizations Description No Information Available Vital Signs Date Vital Result Comment 07/25/2020 8:08am Body Temperature 97.4 F Height 69.5 inches 5'9.50" Weight 233.00 lb BMI (Body Mass Index) 33.9 kg/m2 [place] Body Weight 160 lb Weight 105.689 kg BSA (Body Surface Area) 2.22 m2 06/03/2020 8:32am Body Temperature 96.8 F Results Description No Information Available Procedures Date Code Description Status 06/03/202080355 Inject/Drain Arthrocentesis Varsha r Joint/Bursa/Ganglion Cyst Completed 02/07/2020 Inject/Drain Arthrocentesis Varsha r Joint/Bursa/Ganglion Cyst Completed Medical Devices Description No Information Available Encounters Type Date Location Provider Dx Diagnosis Office Visit 06/03/2020 8:20a [facility] Clifford Gibbs MD S43.431D Superior glenoid labrum lesion of right shoulder, subs M65.811 Other synovitis and tenosyno vitis, right shoulder M75.51 Bursitis of right shoulder Office Visit 04/22/2020 8:00a [facility] Clifford Gibbs MD M65.811 Other synovitis and tenosynovitis, right shoulder S43.431A Superior glenoid labrum lesi on of right shoulder, init Office Visit 02/07/2020 9:00a [facility] Clifford Gibbs MD M65.811 Other synovitis and tenosynovitis, right shoulder M25.511 Pain in right shoulder Assessments Date Code Description Provider 06/03/2020 S43.431D Superior glenoid lab rum lesion of right shoulder, subsequent encounter Clifford Gibbs MD 06/03/2020 M65.811 Other synovitis and tenosynoviti s, right shoulder Clifford Gibbs MD 06/03/2020 M75.51 Bursitis of right shoulder Clifford Gibbs MD 04/22/2020 M65.811 Other synovitis and tenosynoviti s, right shoulder Clifford Gibbs MD 04/22/2020 S43.431A Superior glenoid lab rum lesion of right shoulder, initial encounter Clifford Gibbs MD 02/07/2020 M65.811 Other synovitis and tenosynoviti s, right shoulder Clifford Gibbs MD 02/07/2020 M25.511 Pain in right shoulder Clifford prince MD Plan of Treatment No Information Available Functional Status Description No Information Available Mental Status Description No Information Available Referrals Refer to Dr Reason for Referral Status Appt Date Clifford Gibbs MD PT- RT SHOULDER OK TO [facility] 1ST SET PASSED TO PT DEPT. [place] Closed [address] [place] [address] [phone] Clifford Gibbs MD MRI RT SHOULDER OK TO [facility] PER MTGS AND O MICHAELAALL TO [facility]. LS Closed [address] [place] [address] [phone] Clifford Gibbs MD No auth required for PT Eval [id number] [id number] Right Shoulder. Patient going to [facility] PT, passed to Triage. ac Closed [address] [place] [address] [phone]
--- OUTSIDE RECORDS SUMMARY | 2020-08-27 06:18 | CCD | Continuity of Care Document ---
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 AUTM [phone] Problems Description No Information Available Social History [...] David Raygoza R.P.A.-C. Atorvastatin Calcium 10mg Tablets aDvid Jaimes R.P.A.-C. Famotidine 40mg Tablets Take 1/2 [...] Available Vital Signs Date Vital Result Comment 06/03/2020 8:32am Body Temperature 96.8 F 02/07/2020 10:16am Body Temperature 97.5 F Height 68 inches 5'8" Weight 230.00 lb BMI (Body Mass Index) 35.0 kg/m2 [place] Body Weight 154 lb Weight 104.328 kg Results Description No Information Available Procedures Date Code Description Status 06/03/202019332 Inject/Drain Arthrocentesis Varsha r Joint/Bursa/Ganglion Cyst Completed 02/07/2020 91249 Inject/Drain Arthrocentesis Varsha r Joint/Bursa/Ganglion Cyst Completed Medical Devices Description No Information Available Encounters Type Date Location Provider Dx Diagnosis Office Visit 06/03/2020 8:20a [facility] Clifford Gibbs MD S43.431D Superior glenoid labrum lesion of right shoulder, subs M65.811 Other synovitis and tenosyno vitis, right shoulder Office Visit 04/22/2020 8:00a [facility] Clifford Gibbs MD M65.811 Other synovitis and tenosynovitis, right shoulder S43.431A Superior glenoid labrum lesi on of right shoulder, init Office Visit 02/07/2020 9:00a [facility] Clifford Gibbs MD M65.811 Other synovitis and tenosynovitis, right shoulder M25.511 Pain in right shoulder Assessments Date Code Description Provider 06/03/2020 S43.431D Superior glenoid lab rum lesion of right shoulder, subsequent encounter Clifford Gibbs MD 06/03/2020 M65.811 Other synovitis and tenosynoviti s, right shoulder Clifford Gibbs MD 04/22/2020 M65.811 Other synovitis and tenosynoviti s, right shoulder Clifford Gibbs MD 04/22/2020 S43.431A Superior glenoid lab rum lesion of right shoulder, initial encounter Clifford Gibbs MD 02/07/2020 M65.811 Other synovitis and tenosynoviti s, right shoulder Clifford Gibbs MD 02/07/2020 M25.511 Pain in right shoulder Clifford prince MD Plan of Treatment 06/03/2020 - Clifford Gibbs MD* S43.431D Superior glenoid labrum lesion of right shoulder, subsequent encounter * M65.811 Other synovitis and tenosynovitis, right shoulder* Follow up:* F/U IN 6 WEEKS RIGHT SHOULDER RECHECK Functional Status Description No Information Available Mental Status Description No Information Available Referrals Refer to Dr Reason for Referral Status Appt Date Clifford Gibbs MD PT- RT SHOULDER OK TO ON LICENSE OF [facility] 1ST SET PASSED TO PT DEPT. LS Closed [address] [place] [address] [phone] Clifford Gibbs MD MRI RT SHOULDER OK TO ON LICENSE OF [facility] PER MTGS AND O KAMILA TO ON LICENSE OF [facility]. LS Closed [address] [place] [address] [phone] Clifford Gibbs MD No auth required for PT Eval [id number] Right Shoulder. Patient going to [facility] PT, passed to Triage. ac Closed [address] [place] [address] [phone]
--- OUTSIDE RECORDS SUMMARY | 2020-08-27 06:18 | CCD | Continuity of Care Document ---
Author Author Jose Francisco [facility] Organization Unknown Address [address] [facility] [address] [place] [address] Phone [phone] Problems Active Problems Provider Date Hyperlipidemia Elkin [...] at bedtime 30tabs Tyrese Amin D.O. , [facility] 08/13/2020 Buspirone HCL 5mg Tablets 1 by mouth three times a day as needed anxiety 90tabs Juli Callejas, [facility] 08/13/2020 Famotidine 40mg Tablets take 1/2 tablet by mouth every night at bedtime 90tabs Colin Callejas, [facility] 06/06/2019 Atorvastatin Calcium 10mg Tablets Take One Tablet By Mouth Every Day 90tabs L08.0 [facility]., [facility] 05/28/[address] take one capsule by mouth every day 90caps L08.0 Tyrese Amin D.O. , [facility] 01/17/[address] 1 by mouth every day OTC Unknown Nortriptyline HCL 10mg Capsules take 2 capsules by mouth at night Unknown 0000 History Medications Azelastine HCL (Nasal) 0.1% Soluti on one nasal inhalation each nostril twice a day 30ml Roel Amin D.[facility]., [facility] 06/03/2020 - 08/13/2020 Zyrtec Allergy 10mg Tablets 1 by mouth every night at bedtime 30tabs Tyrese Amin D.O., [facility] 06/03/2020 - 08/13/2020 Immunizations CPT Code Status Date Vaccine Reaction Lot # [id number] Given 06/05/2008 MMR Mumps, Measles, Rubella Virus Im munization [id number] Refused 04/30/2020 Influenza Virus Vaccine, Quadrivalent, Slit Virus, Im Use 3Y & Up RECEIVED 04/28/2020 @ [facility]. [id number] Refused 05/13/2016 Influenza Virus Vaccine, Quadrivalent, Slit Virus, Im Use 3Y & Up Vital Signs Date Vital Result Comment 08/13/2020 1:11pm BP Systolic 132 mmHg BP Diastolic 94 mmHg Body Temperature 97.5 F Heart Rate 100 /min Respiratory Rate 16 /min Height 68 inches 5'8" Weight 235.00 lb [place] Body Weight 154 lb BMI (Body Mass Index) 35.7 kg/m2 O2 % BldC Oximetry 98 % 06/03/2020 10:51am BP Systolic 140 mmHg BP Diastolic 64 mmHg Body Temperature 97.4 F Heart Rate 98 /min Respiratory Rate 18 /min Height 68 inches 5'8" Weight 230.00 lb [place] Body Weight 154 lb BMI (Body Mass [...] eGFR 98 # Calc 3 eGFR Non-Afr. 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
--- OUTSIDE RECORDS SUMMARY | 2020-08-27 06:19 | CCD ---
Author Author [facility] Organization [facility] Address Unknown Phone Unavailable Care Team Providers Care Corporate Trainer Name Role Phone Juli Jaimes Unavailable Unavailable Juli Jaimes Unavailable Unavailable Juli Jaimes Unavailable Unavailable Juli Jaimes Unavailable Unavailable Juli Jaimes Unavailable Unavailable Juli Jaimes Unavailable Unavailable Juli Jaimes Unavailable Unavailable Juli Jaimes Unavailable Unavailable Juli Jaimes Unavailable Unavailable Juli Jaimes Unavailable Unavailable Juli Jaimes Unavailable Unavailable Juli Jaimes Unavailable Unavailable Juli Jaimes Unavailable Unavailable Juli Jaimes Unavailable Unavailable Juli Jaimes Unavailable Unavailable Juli Jaimes Unavailable Unavailable Juli Jaimes Unavailable Unavailable Juli Jaimes Unavailable Unavailable Juli Jaimes Unavailable Unavailable Juli Jaimes Unavailable Unavailable Theodore, D David PA Unavailable Unavailable Theodore, D David PA Unavailable Unavailable Theodore, D David PA Unavailable Unavailable Theodore, D David PA Unavailable Unavailable Theodore, D David PA Unavailable Unavailable Theodore, D David PA Unavailable Unavailable Theodore, D David PA Unavailable Unavailable Theodore, D David PA Unavailable Unavailable Theodore, D David PA Unavailable Unavailable Theodore, D David PA Unavailable Unavailable Theodore, D David PA Unavailable Unavailable Theodore, D David PA Unavailable Unavailable Theodore, D David PA Unavailable Unavailable Theodore, D David PA Unavailable Unavailable Theodore, D David PA Unavailable Unavailable Theodore, D David PA Unavailable Unavailable Theodore, D David PA Unavailable Unavailable Theodore, D David PA Unavailable Unavailable Theodore, D David PA Unavailable Unavailable Theodore, D David PA Unavailable Unavailable Theodore, D David PA Unavailable Unavailable Theodore, D David PA Unavailable Unavailable Theodore, D David PA Unavailable Unavailable Theodore, D David PA Unavailable Unavailable Theodore, D David PA Unavailable Unavailable Theodore, D David PA Unavailable Unavailable Theodore, D David PA Unavailable Unavailable Theodore, D David PA Unavailable Unavailable Theodore, D David PA Unavailable Unavailable Theodore, D David PA Unavailable Unavailable Theodore, D David PA Unavailable Unavailable Theodore, D David PA Unavailable Unavailable Theodore, D David PA Unavailable Unavailable Theodore, D David PA Unavailable Unavailable Theodore, D David PA Unavailable Unavailable Theodore, D David PA Unavailable Unavailable Theodore, D David PA Unavailable Unavailable Theodore, D David PA Unavailable Unavailable Theodore, D David PA Unavailable Unavailable Theodore, D David PA Unavailable Unavailable Theodore, D David PA Unavailable Unavailable Theodore, D David PA Unavailable Unavailable Theodore, D David PA Unavailable Unavailable Barraclough, Effie PA Unavailable Unavailable Barraclough, Effie PA Unavailable Unavailable Barraclough, Effie PA Unavailable Unavailable Barraclough, Effie PA Unavailable Unavailable Barraclough, Effie PA Unavailable Unavailable Barraclough, Effie PA Unavailable Unavailable Theodore, D David PA Unavailable Unavailable Theodore, D David PA Unavailable Unavailable Theodore, D David PA Unavailable Unavailable Theodore, D David PA Unavailable Unavailable Theodore, D David PA Unavailable Unavailable Theodore, D David PA Unavailable Unavailable Theodore, D David PA Unavailable Unavailable Theodore, D David PA Unavailable Unavailable Theodore, D David PA Unavailable Unavailable Theodore, D David PA Unavailable Unavailable Theodore, D David PA Unavailable Unavailable Theodore, D David PA Unavailable Unavailable Theodore, D David PA Unavailable Unavailable Theodore, D David PA Unavailable Unavailable Theodore, D David PA Unavailable Unavailable Theodore, D David PA Unavailable Unavailable Theodore, D David PA Unavailable Unavailable Theodore, D David PA Unavailable Unavailable Theodore, D David PA Unavailable Unavailable Theodore, D David PA Unavailable Unavailable Theodore, D David PA Unavailable Unavailable Theodore, D David PA Unavailable Unavailable Theodore, D David PA Unavailable Unavailable Theodore, D David PA Unavailable Unavailable Theodore, D David PA Unavailable Unavailable Theodore, D David PA Unavailable Unavailable Theodore, D David PA Unavailable Unavailable Theodore, D David PA Unavailable Unavailable Theodore, D David PA Unavailable Unavailable Theodore, D David PA Unavailable Unavailable Theodore, D David PA Unavailable Unavailable Theodore, D David PA Unavailable Unavailable Theodore, D David PA Unavailable Unavailable Theodore, D David PA Unavailable Unavailable Theodore, D David PA Unavailable Unavailable Theodore, D David PA Unavailable Unavailable Theodore, D David PA Unavailable Unavailable Theodore, D David PA Unavailable Unavailable Theodore, D David PA Unavailable Unavailable Theodore, D David PA Unavailable Unavailable Theodore, D David PA Unavailable Unavailable Theodore, D David PA Unavailable Unavailable Theodore, D David PA Unavailable Unavailable Theodore, D David PA Unavailable Unavailable Theodore, D David PA Unavailable Unavailable Theodore, D David PA Unavailable Unavailable Theodore, D David PA Unavailable Unavailable Theodore, D David PA Unavailable Unavailable Theodore, D David PA Unavailable Unavailable Theodore, D David PA Unavailable Unavailable Theodore, D David PA Unavailable Unavailable Theodore, D David PA Unavailable Unavailable Theodore, D David PA Unavailable Unavailable Theodore, D David PA Unavailable Unavailable Theodore, D David PA Unavailable Unavailable Theodore, D David PA Unavailable Unavailable Theodore, D David PA Unavailable Unavailable Theodore, D David PA Unavailable Unavailable Theodore, D David PA Unavailable Unavailable Theodore, D David PA Unavailable Unavailable Theodore, D David PA Unavailable Unavailable Theodore, D David PA Unavailable Unavailable Theodore, D David PA Unavailable Unavailable JAMES, E ALBERT STRAIGHTENING MACHINE FEEDER Unavailable Unavailable JAMES, E ALBERT STRAIGHTENING MACHINE FEEDER Unavailable Unavailable JAMES, E ALBERT STRAIGHTENING MACHINE FEEDER Unavailable Unavailable JAMES, E ALBERT STRAIGHTENING MACHINE FEEDER Unavailable Unavailable JAMES, E ALBERT STRAIGHTENING MACHINE FEEDER Unavailable Unavailable JAMES, E ALBERT STRAIGHTENING MACHINE FEEDER Unavailable Unavailable JAMES, E ALBERT STRAIGHTENING MACHINE FEEDER Unavailable Unavailable JAMES, E ALBERT STRAIGHTENING MACHINE FEEDER Unavailable Unavailable JAMES, E ALBERT STRAIGHTENING MACHINE FEEDER Unavailable Unavailable JAMES, E ALBERT STRAIGHTENING MACHINE FEEDER Unavailable Unavailable JAMES, E ALBERT STRAIGHTENING MACHINE FEEDER Unavailable Unavailable JAMES, E ALBERT STRAIGHTENING MACHINE FEEDER Unavailable Unavailable JAMES, E ALBERT STRAIGHTENING MACHINE FEEDER Unavailable Unavailable JAMES, E ALBERT STRAIGHTENING MACHINE FEEDER Unavailable Unavailable JAMES, E ALBERT STRAIGHTENING MACHINE FEEDER Unavailable Unavailable JAMES, E ALBERT STRAIGHTENING MACHINE FEEDER Unavailable Unavailable JAMES, E ALBERT STRAIGHTENING MACHINE FEEDER Unavailable Unavailable JAMES, E ALBERT STRAIGHTENING MACHINE FEEDER Unavailable Unavailable JAMES, E ALBERT STRAIGHTENING MACHINE FEEDER Unavailable Unavailable JAMES, E ALBERT STRAIGHTENING MACHINE FEEDER Unavailable Unavailable JAMES, E ALBERT STRAIGHTENING MACHINE FEEDER Unavailable Unavailable JAMES, E ALBERT STRAIGHTENING MACHINE FEEDER Unavailable Unavailable JAMES, E ALBERT STRAIGHTENING MACHINE FEEDER Unavailable Unavailable Dat Hinojosa MD Unavailable Unavailable Dat Hinojosa MD Unavailable Unavailable MollDat bearden MD Unavailable Unavailable MollDat bearden MD Unavailable Unavailable MollDat bearden MD Unavailable Unavailable MollDat bearden MD Unavailable Unavailable MollisonDat MD Unavailable Unavailable MollisonDat MD Unavailable Unavailable MollDat bearden MD Unavailable Unavailable MollDat bearden MD Unavailable Unavailable MollDat bearden MD Unavailable Unavailable MollDat bearden MD Unavailable Unavailable MollisonDat MD Unavailable Unavailable MollDat bearden MD Unavailable Unavailable MollDat bearden MD Unavailable Unavailable MollDat bearden MD Unavailable Unavailable Dat Hinojosa MD Unavailable Unavailable Dat Hinojosa MD Unavailable Unavailable Dat Hinojosa MD Unavailable Unavailable Dat Hinojosa MD Unavailable Unavailable MollisonDat MD Unavailable Unavailable MollisonDat MD Unavailable Unavailable Gaulke, Frannie STRAIGHTENING MACHINE FEEDER Unavailable Unavailable Gaulke, Frannie STRAIGHTENING MACHINE FEEDER Unavailable Unavailable Gaulke, Frannie STRAIGHTENING MACHINE FEEDER Unavailable Unavailable Gaulke, Frannie STRAIGHTENING MACHINE FEEDER Unavailable Unavailable Gaulke, Frannie STRAIGHTENING MACHINE FEEDER Unavailable Unavailable Gaulke, Frannie STRAIGHTENING MACHINE FEEDER Unavailable Unavailable Gaulke, Frannie STRAIGHTENING MACHINE FEEDER Unavailable Unavailable Gaulke, Frannie STRAIGHTENING MACHINE FEEDER Unavailable Unavailable Gaulke, Frannie STRAIGHTENING MACHINE FEEDER Unavailable Unavailable Gaulke, Frannie STRAIGHTENING MACHINE FEEDER Unavailable Unavailable Gaulke, Frannie STRAIGHTENING MACHINE FEEDER Unavailable Unavailable Gaulke, Frannie STRAIGHTENING MACHINE FEEDER Unavailable Unavailable Gaulke, Frannie STRAIGHTENING MACHINE FEEDER Unavailable Unavailable Gaulke, Frannie STRAIGHTENING MACHINE FEEDER Unavailable Unavailable Gaulke, Frannie STRAIGHTENING MACHINE FEEDER Unavailable Unavailable Gaulke, Frannie STRAIGHTENING MACHINE FEEDER Unavailable Unavailable Gaulke, Frannie STRAIGHTENING MACHINE FEEDER Unavailable Unavailable Gaulke, Frannie STRAIGHTENING MACHINE FEEDER Unavailable Unavailable Gaulke, Frannie STRAIGHTENING MACHINE FEEDER Unavailable Unavailable Gaulke, Frannie STRAIGHTENING MACHINE FEEDER Unavailable Unavailable Gaulke, Frannie STRAIGHTENING MACHINE FEEDER Unavailable Unavailable Gaulke, Frannie STRAIGHTENING MACHINE FEEDER Unavailable Unavailable Gaulke, Frannie STRAIGHTENING MACHINE FEEDER Unavailable Unavailable Gaulke, Frannie STRAIGHTENING MACHINE FEEDER Unavailable Unavailable Gaulke, Frannie STRAIGHTENING MACHINE FEEDER Unavailable Unavailable Gaulke, Frannie STRAIGHTENING MACHINE FEEDER Unavailable Unavailable Gaulke, Frannie STRAIGHTENING MACHINE FEEDER Unavailable Unavailable Gaulke, Frannie STRAIGHTENING MACHINE FEEDER Unavailable Unavailable Gaulke, Frannie STRAIGHTENING MACHINE FEEDER Unavailable Unavailable Gaulke, Frannie STRAIGHTENING MACHINE FEEDER Unavailable Unavailable Gaulke, Frannie STRAIGHTENING MACHINE FEEDER Unavailable Unavailable Gaulke, Frannie STRAIGHTENING MACHINE FEEDER Unavailable Unavailable Gaulke, Frannie STRAIGHTENING MACHINE FEEDER Unavailable Unavailable Gaulke, Frannie STRAIGHTENING MACHINE FEEDER Unavailable Unavailable Gaulke, Frannie STRAIGHTENING MACHINE FEEDER Unavailable Unavailable ANEL (VIJI), Juan Jose GARZA MD Unavailable Unavailab le ANEL (VIJI), Juan Jose GARZA MD Unavailable Unavailab le ANEL (VIJI), Juan Jose GARZA MD Unavailable Unavailab le ANEL (VIJI), Juan Jose GARZA MD Unavailable Unavailab le ANEL (VIJI), Juan Jose GARZA MD Unavailable Unavailab le ANEL (VIJI), Juan Jose GARZA MD Unavailable Unavailab le ANEL (VIJI), Juan Jose GARZA MD Unavailable Unavailab le ANEL (VIJI), Juan Jose GARZA MD Unavailable Unavailab le ANEL (VIJI), Juan Jose GARZA MD Unavailable Unavailab le ANEL (VIJI), Juan Jose GARZA MD Unavailable Unavailab le ANEL (VIJI), Juan Jose GARZA MD Unavailable Unavailab le ANEL (VIJI), Juan Jose GARZA MD Unavailable Unavailab le ANEL (VIJI), Juan Jose GARZA MD Unavailable Unavailab le ANEL (VIJI), Juan Jose GARZA MD Unavailable Unavailab le ANEL (VIJI), Juan Jose GARZA MD Unavailable Unavailab le ANEL (VIJI), Juan Jose GARZA MD Unavailable Unavailab le ANEL (VIJI), Juan Jose GARZA MD Unavailable Unavailab le ANEL (VIJI), Juan Jose GARZA MD Unavailable Unavailab le ANEL (VIJI), Juan Jose GARZA MD Unavailable Unavailab le ANEL (VIJI), Juan Jose GARZA MD Unavailable Unavailab le ANEL (VIJI), Juan Jose GARZA MD Unavailable Unavailab le ANEL (VIJI), Juan Jose GARZA MD Unavailable Unavailab le ANEL (VIJI), Juan Jose GARZA MD Unavailable Unavailab le ANEL (VIJI), Juan Jose GARZA MD Unavailable Unavailab le ANEL (VIJI), Juan Jose GARZA MD Unavailable Unavailab le ANEL (VIJI), Juan Jose GARZA MD Unavailable Unavailab le ANEL (VIJI), Juan Jose GARZA MD Unavailable Unavailab le ANEL (VIJI), Juan Jose GARZA MD Unavailable Unavailab le ANEL (VIJI), Juan Jose GARZA MD Unavailable Unavailab le ANEL (VIJI), Juan Jose GARZA MD Unavailable Unavailab le ANEL (VIJI), Juan Jose GARZA MD Unavailable Unavailab le ANEL (VIJI), Juan Jose GARZA MD Unavailable Unavailab le ANEL (VIJI), Juan Jose GARZA MD Unavailable Unavailab le ANEL (VIJI), Juan Jose GARZA MD Unavailable Unavailab le ANEL (VIJI), Juan Jose GARZA MD Unavailable Unavailab le ANEL (VIJI), Juan Jose GARZA MD Unavailable Unavailab le ANEL (VIJI), Juan Jose GARZA MD Unavailable Unavailab le ANEL (VIJI), Juan Jose GARZA MD Unavailable Unavailab le ANEL (VIJI), Juan Jose GARZA MD Unavailable Unavailab le ANEL (VIJI), Juan Jose GARZA MD Unavailable Unavailab le ANEL (VIJI), Juan Jose GARZA MD Unavailable Unavailab le ANEL (VIJI), Juan Jose GARZA MD Unavailable Unavailab le ANEL (VIJI), Juan Jose GARZA MD Unavailable Unavailab le ANEL (VIJI), Juan Jose GARZA MD Unavailable Unavailab le ANEL (VIJI), Juan Jose GARZA MD Unavailable Unavailab le ANEL (VIJI), Juan Jose GARZA MD Unavailable Unavailab le ANEL (VIJI), Juan Jose GARZA MD Unavailable Unavailab le ANEL (VIJI), Juan Jose GARZA MD Unavailable Unavailab le ANEL (VIJI), Juan Jose GARZA MD Unavailable Unavailab le ANEL (VIJI), Juan Jose GARZA MD Unavailable Unavailab le ANEL (VIJI), Juan Jose GARZA MD Unavailable Unavailab le ANEL (VIJI), Juan Jose GARZA MD Unavailable Unavailab le ANEL (VIJI), Juan Jose GARZA MD Unavailable Unavailab le ANEL (VIJI), Juan Jose GARZA MD Unavailable Unavailab le ANEL (VIJI), Juan Jose GARZA MD Unavailable Unavailab le ANEL (VIJI), Juan Jose GARZA MD Unavailable Unavailab le ANEL (VIJI), Juan Jose GARZA MD Unavailable Unavailab le ANEL (VIJI), Juan Jose GARZA MD Unavailable Unavailab le ANEL (VIJI), Juan Jose GARZA MD Unavailable Unavailab le ANEL (VIJI), Juan Jose GARZA MD Unavailable Unavailab le ANEL (VIJI), Juan Jose GARZA MD Unavailable Unavailab le ANEL (VIJI), Juan Jose GARZA MD Unavailable Unavailab le ANEL (VIJI), Juan Jose GARZA MD Unavailable Unavailab le ANEL (VIJI), Juan Jose GARZA MD Unavailable Unavailab le ANEL (VIJI), Juan Jose GARZA MD Unavailable Unavailab le ANEL (VIJI), Juan Jose GARZA MD Unavailable Unavailab le ANEL (VIJI), Juan Jose GARZA MD Unavailable Unavailab le ANEL (VIJI), Juan Jose GARZA MD Unavailable Unavailab le ANEL (VIJI), Juan Jose GARZA MD Unavailable Unavailab le ANEL (VIJI), Juan Jose GARZA MD Unavailable Unavailab le ANEL (VIJI), Juan Jose GARZA MD Unavailable Unavailab le ANEL (VIJI), Juan Jose GARZA MD Unavailable Unavailab le ANEL (VIJI), Juan Jose GARZA MD Unavailable Unavailab le ANEL (VIJI), Juan Jose GARZA MD Unavailable Unavailab le ANEL (VIJI), Juan Jose GARZA MD Unavailable Unavailab le ANEL (VIJI), Juan Jose GARZA MD Unavailable Unavailab le ANEL (VIJI), Juan Jose GARZA MD Unavailable Unavailab le ANEL (VIJI), Juan Jose GARZA MD Unavailable Unavailab le ANEL (VIJI), Juan Jose GARZA MD Unavailable Unavailab le ANEL (VIJI), Juan Jose GARZA MD Unavailable Unavailab le ANEL (VIJI), Juan Jose GARZA MD Unavailable Unavailab le ANEL (VIJI), Juan Jose GARZA MD Unavailable Unavailab le ANEL (VIJI), Juan Jose GARZA MD Unavailable Unavailab le ANEL (VIJI), Juan Jose GARZA MD Unavailable Unavailab le ANEL (VIJI), Juan Jose GARZA MD Unavailable Unavailab le ANEL (VIJI), Juan Jose GARZA MD Unavailable Unavailab le ANEL (VIJI), Juan Jose GARZA MD Unavailable Unavailab le ANEL (VIJI), Juan Jose GARZA MD Unavailable Unavailab le ANEL (VIJI), Juan Jose GARZA MD Unavailable Unavailab le ANEL (VIJI), Juan Jose GARZA MD Unavailable Unavailab le ANEL (VIJI), Juan Jose GARZA MD Unavailable Unavailab le ANEL (VIJI), Juan Jose GARZA MD Unavailable Unavailab le ANEL (VIJI), Juan Jose GARZA MD Unavailable Unavailab le Lela, Aiyana Bowling MD Unavailable Unavailable LelaAiyana posada MD Unavailable Unavailable Lela, O Samah MD Unavailable Unavailable Aiyana Vogel MD Unavailable Unavailable Aiyana Vogel MD Unavailable Unavailable Aiyana Vogel MD Unavailable Unavailable Aiyana Vogel MD Unavailable Unavailable Aiyana Vogel MD Unavailable Unavailable Aiyana Vogel MD Unavailable Unavailable Aiyana Vogel MD Unavailable Unavailable Aiyana Vogel MD Unavailable Unavailable Aiyana Vogel MD Unavailable Unavailable Ayiana Vogel MD Unavailable Unavailable Aiyana Vogel MD Unavailable Unavailable Aiyana Vogel MD Unavailable Unavailable Aiyana Vogel MD Unavailable Unavailable Aiyana Vogel MD Unavailable Unavailable Aiyana Vogel MD Unavailable Unavailable Aiyana Vogel MD Unavailable Unavailable Aiyana Vogel MD Unavailable Unavailable Aiyana Vogel MD Unavailable Unavailable Aiyana Vogel MD Unavailable Unavailable Aiyana Vogel MD Unavailable Unavailable Aiyana Vogel MD Unavailable Unavailable Aiyana Vogel MD Unavailable Unavailable Aiyana Vogel MD Unavailable Unavailable Aiyana Vogel MD Unavailable Unavailable Aiyana Vogel MD Unavailable Unavailable Aiyana Vogel MD Unavailable Unavailable Aiyana Vogel MD Unavailable Unavailable Aiyana Vogel MD Unavailable Unavailable Aiyana Vogel MD Unavailable Unavailable Aiyana Vogel MD Unavailable Unavailable Aiyana Vogel MD Unavailable Unavailable Aiyana Vogel MD Unavailable Unavailable Aiyana Vogel MD Unavailable Unavailable Aiyana Vogel MD Unavailable Unavailable Aiyana Vogel MD Unavailable Unavailable Aiyana Vogel MD Unavailable Unavailable Aiyana Vogel MD Unavailable Unavailable Aiyana Vogel MD Unavailable Unavailable Aiyana Vogel MD Unavailable Unavailable Aiyana Vogel MD Unavailable Unavailable Aiyana Vogel MD Unavailable Unavailable Aiyana Vogel MD Unavailable Unavailable Aiyana Vogel MD Unavailable Unavailable Lela, O Samah MD Unavailable Unavailable Lela, O Samah MD Unavailable Unavailable Lela, O Samah MD Unavailable Unavailable Lela, O Samah MD Unavailable Unavailable Lela, O Samah MD Unavailable Unavailable Lela, O Samah MD Unavailable Unavailable Lela, O Samah MD Unavailable Unavailable Lela, O Samah MD Unavailable Unavailable Lela, O Samah MD Unavailable Unavailable Lela, O Samah MD Unavailable Unavailable Lela, O Samah MD Unavailable Unavailable Lela, O Samah MD Unavailable Unavailable Lela, O Samah MD Unavailable Unavailable Lela, O Samah MD Unavailable Unavailable Lela, O Samah MD Unavailable Unavailable Lela, O Samah MD Unavailable Unavailable Lela, O Samah MD Unavailable Unavailable Lela, O Samah MD Unavailable Unavailable Lela, O Samah MD Unavailable Unavailable Lela, O Samah MD Unavailable Unavailable Lela, O Samah MD Unavailable Unavailable Lela, O Samah MD Unavailable Unavailable Lela, O Samah MD Unavailable Unavailable Lela, O Samah MD Unavailable Unavailable Llea, O Samah MD Unavailable Unavailable Lela, O Samah MD Unavailable Unavailable Lela, O Samah MD Unavailable Unavailable Lela, O Samah MD Unavailable Unavailable Lela, O Samah MD Unavailable Unavailable Lela, O Samah MD Unavailable Unavailable Re-disclosure Warning The records that you are about to access may contain information from federally-assisted alcohol or drug abuse programs. If such information is present, then the following federally mandated warning applies: This information has been disclosed to you from records protected by federal confidentiality rules (42 CFR part 2). The federal rules prohibit you from making any further disclosure of this information unless further disclosure is expressly permitted by the written consent of the person to whom it pertains or as otherwise permitted by 42 CFR part 2. A general authorization for the release of medical or other information is NOT sufficient for this purpose. The Federal rules restrict any use of the information to criminally investigate or prosecute any alcohol or drug abuse patient.The records that you are about to access may contain highly sensitive health information, the redisclosure of which is protected by Article 27-F of the [facility] Public Health law. If you continue you may have access to information: Regarding HIV / AIDS; Provided by facilities licensed or operated by the [facility] Office of Mental Health; or Provided by the [facility] Office for People With Developmental Disabilities. If such information is present, then the following [facility] mandated warning applies: This information has been disclosed to you from confidential records which are protected by state law. State law prohibits you from making any further disclosure of this information without the specific written consent of the person to whom it pertains, or as otherwise permitted by law. Any unauthorized further disclosure in violation of state law may result in a fine or retirement sentence or both. A general authorization for the release of medical or other information is NOT sufficient authorization for further disc losure. Allergies and Adverse Reactions Type Description Substance Reaction Status Data Source(s ) Drug allergy Bactrim sulfamethoxazole / trimethoprim FACE SWELLING Active eCW1 ([facility]) Encounters Encounter Providers Location Date Indications Data Source(s ) Outpatient Attender: David DOOLEY [place] [facility] 12:00:00 PM EST [facility] ([facility] [address] [place] [id number] 07/28/2020 12:00:00 AM EST eCW1 ([facility]) Outpatient Attender: Effie DOOLEY [place] [facility] 06/03/2020 09:40:00 AM EST [facility] ([facility] Outpatient Attender: Clifford Ibanez/Ashlyn/David/Alice dominguez 06/03/2020 07:20:00 AM EST [facility] ([facility] Attender: GREG LOYOLA) MDReferrer: Juan Jose DOOLEY 05/13/2020 08:20:10 PM EDT [facility] Attender: GREG LOYOLA) MDReferrer: Juan Jose DOOLEY 05/13/2020 08:20:10 PM EDT [facility] Outpatient Attender: David DOOLEY [place] [facility] 04:00:00 PM EDT [facility] Outpatient Attender: Clifford Ibanez/[place]/David/Re indl 04/22/2020 08:00:00 AM EDT [facility] ([facility] Outpatient Attender: Dash Vogel MD Main office - [facility] 02/26/2020 12:45:00 PM EDT [facility] ([facility] Outpatient Attender: Clifford Ibanez/Ashlyn/David/Re indl 02/07/2020 09:00:00 AM EDT [facility] ([facility] Outpatient Referrer: ABLERT RAMIREZ NP 01/10/2020 12:47:00 P M EDT [facility] Outpatient Referrer: ALBERT RAMIREZ NP 01/10/2020 09:18:00 A M EDT [facility] Outpatient Referrer: ALBERT RAMIREZ NP 01/10/2020 09:11:00 A M EDT [facility] Outpatient Referrer: ALBERT RAMIREZ NP 01/10/2020 08:23:00 A M EDT [facility] Outpatient Referrer: Frannie Rincon NP 01/10/2020 08:22:00 AM EDT [facility] Outpatient [facility] [id number] 01/10/2020 12:00:00 AM EDT eCW1 ([facility]) Outpatient Attender: David DOOLEY [place] [facility] 04:00:00 PM EDT [facility] ([facility] Outpatient Attender: Dash Vogel MD [facility] 11/23/2019 11:00:00 AM EDT [facility] ([facility]) [facility] [address] [place] [id number] 08/16/2019 12:00:00 AM EST eCW1 ([facility]) Outpatient Attender: David DOOLEY [place] [facility] 09:00:00 AM EST [facility] ([facility] [facility] [address] [place] [phone] 08/09/2019 12:00:00 AM EST eCW1 ([facility]) Outpatient Attender: David DOOLEY [place] Office 12/2019 03:00:00 PM EST MEDENT ([facility] [address] [place] [phone] 07/19/2019 12:00:00 AM EST eCW1 ([facility]) [facility] [address] [place] [phone] 07/19/2019 12:00:00 AM EST eCW1 ([facility]) [facility] [address] [place] [phone] 07/17/2019 12:00:00 AM EST eCW1 ([facility]) Outpatient Attender: David DOOLEY [place] Office 12:30:00 PM EST MEDENT ([facility] Immunizations Vaccine Date Status Description Data Source(s) New in 2012. IIV4 04/30/2020 03:58:00 PM EDT completed MEDENT ([facility] Medications Medication Brand Name Start Date Product Form Dose Route Admi nistrative Instructions Pharmacy Instructions Status Indications Reaction Description Data Source(s) buspirone hydrochloride 5 MG Oral Tablet BUSPIRONE HCL 08/14/2020 12:00:00 AM EST tablet 90 TAKE ONE TABLET BY MOUTH THREE TIMES A DAY NEEDED FOR ANXIETY TAKE ONE TABLET BY MOUTH THREE TIMES A DAY NEEDED F OR ANXIETY SOLD: 08/15/2020 [facility] 10 mg 08/14/2020 12:00:00 AM EST tablet 30 TAKE ONE TABLET BY MOUTH AT BEDTIME TAKE ONE TABLET BY MOUTH AT BEDTIME SOLD: 08/15/2020 [facility] buspirone hydrochloride 5 MG Oral Tablet Buspirone HCL 08/13/2020 12:00:00 AM EST ORAL active MEDENT ([facility] Citalopram 10 MG Oral Tablet Citalopram Hydrobromide 08/13/2020 12:00:00 AM EST ORAL active [facility] ( [facility] Nortriptyline 50 MG Oral Capsule NORTRIPTYLINE HCL 08/12/2020 12 :00:00 AM EST capsule 30 TAKE ONE CAPSULE BY MOUTH AT BED TIME TAKE ONE CAPSULE BY MOUTH AT BEDTIME SOLD: 08/14/2020 [facility] atorvastatin 10 MG Oral Tablet ATORVASTATIN CALCIUM 06/25/2020 1 2:00:00 AM EST tablet 90 TAKE ONE TABLET BY MOUTH EVERY D AY TAKE ONE TABLET BY MOUTH EVERY DAY SOLD: 06/28/2020 [facility] 40 mg 06/10/2020 12:00:00 AM EST capsule,delayed release (DR/EC) 90 TAKE ONE CAPSULE BY MOUTH EVERY DAY TAKE ONE CAPSULE BY MOUTH EVERY DAY SOLD: 06/11/2020 [facility] 137 mcg (0.1 %) 06/03/2020 12:00:00 AM EST aerosol,spray 30 SPRAY ONE SPRAY IN EACH NOSTRIL TWICE A DAY SPRAY ONE SPRAY IN EACH NOSTRIL TWICE A DAY SOLD: 06/04/2020 [facility] cetirizine hydrochloride 10 MG Oral Tablet [Zyrtec] Zyrtec A llergy 06/03/2020 12:00:00 AM EST ORAL completed MEDENT ([facility] Azelastine HCL (Nasal) Azelastine HCL (Nasal) 06/03/2020 12:00:[address] completed MEDENT ([facility] atorvastatin 10 MG Oral Tablet ATORVASTATIN CALCIUM 04/07/2020 1 2:00:00 AM EDT tablet 90 TAKE ONE TABLET BY MOUTH EVERY D AY TAKE ONE TABLET BY MOUTH EVERY DAY SOLD: 04/09/2020 [facility] 40 mg 03/24/2020 12:00:00 AM EDT tablet 45 TAKE ONE-HALF TABLET BY MOUTH EVERY DAY AT BEDTIME TAKE ONE-HALF TABLET BY MOUTH EVERY DAY AT BEDTIME [facility] 40 mg 03/24/2020 12:00:00 AM EDT capsule,delayed release (DR/EC) 90 TAKE ONE CAPSULE BY MOUTH EVERY DAY TAKE ONE CAPSULE BY MOUTH EVERY DAY SOLD: 03/25/2020 [facility] 10 mg 02/27/2020 12:00:00 AM EDT capsule 60 TAKE TWO CAPSULES BY MOUTH AT BEDTIME TAKE TWO CAPSULES BY MOUTH AT BEDTIME SOLD: 05/05/2020 [facility] 10 mg 02/27/2020 12:00:00 AM EDT capsule 60 TAKE TWO CAPSULES BY MOUTH AT BEDTIME TAKE TWO CAPSULES BY MOUTH AT BEDTIME SOLD: 02/27/2020 [facility] 10 mg 02/27/2020 12:00:00 AM EDT capsule 60 TAKE TWO CAPSULES BY MOUTH AT BEDTIME TAKE TWO CAPSULES BY MOUTH AT BEDTIME SOLD: 06/03/2020 [facility] 10 mg 02/27/2020 12:00:00 AM EDT capsule 60 TAKE TWO CAPSULES BY MOUTH AT BEDTIME TAKE TWO CAPSULES BY MOUTH AT BEDTIME SOLD: 03/31/2020 [facility] 1 % 02/05/2020 12:00:00 AM EDT gel 100 APPLY A SMALL AMOUNT TWO TIMES A DAY NEEDED FOR PAIN APPLY A SMALL AMOUNT TWO TIMES A DAY NEEDED FOR EUGENIO N SOLD: 07/03/2020 [facility] 1 % 02/05/2020 12:00:00 AM EDT gel 100 APPLY A SMALL AMOUNT TWO TIMES A DAY NEEDED FOR PAIN APPLY A SMALL AMOUNT TWO TIMES A DAY NEEDED FOR EUGENIO N SOLD: 02/12/2020 [facility] 10 mg 01/22/2020 12:00:00 AM EDT capsule 60 TAKE 2 CAPSULES BY MOUTH AT BEDTIME TAKE 2 CAPSULES BY MOUTH AT BEDTIME SOLD: 01/23/2020 [facility] 10 mg 01/22/2020 12:00:00 AM EDT capsule 60 TAKE 2 CAPSULES BY MOUTH AT BEDTIME TAKE 2 CAPSULES BY MOUTH AT BEDTIME SOLD: 07/21/2020 [facility] 81 mg 01/15/2020 12:00:00 AM EDT tablet,delayed release (DR/EC) 30 TAKE ONE TABLET BY MOUTH ONCE DAILY TAKE ONE TABLET BY MOUTH ONCE DAILY SOLD: 01/16/2020 [facility] 81 mg 01/15/2020 12:00:00 AM EDT tablet,delayed release (DR/EC) 30 TAKE ONE TABLET BY MOUTH ONCE DAILY TAKE ONE TABLET BY MOUTH ONCE DAILY SOLD: 07/24/2020 [facility] 81 mg 01/15/2020 12:00:00 AM EDT tablet,delayed release (DR/EC) 30 TAKE ONE TABLET BY MOUTH ONCE DAILY TAKE ONE TABLET BY MOUTH ONCE DAILY SOLD: 06/24/2020 [facility] 81 mg 01/15/2020 12:00:00 AM EDT tablet,delayed release (DR/EC) 30 TAKE ONE TABLET BY MOUTH ONCE DAILY TAKE ONE TABLET BY MOUTH ONCE DAILY SOLD: 08/25/2020 [facility] Aspirin 81 MG Delayed Release Oral Tablet Aspirin 81 2019 12:00:00 AM EDT active MEDENT ( [facility] ) Acetaminophen 325 MG / Oxycodone Hydroch loride 5 MG Oral Tablet [Percocet] Percocet 5-325 MG Percocet 5-325 MG 01/10/2020 12:00:00 AM EDT 1.0 {t ablet} active Percocet 5-325 MG eCW1 ([facility]) 5-325 mg 01/10/2020 12:00:00 AM EDT tablet 20 TAKE ONE TABLET BY MOUTH EVERY 6 HOURS NEEDED FOR PAIN MAXIMUM DAILY DOSE = FOUR TABLETS TAKE ONE TABLET BY MOUTH EVERY 6 HOURS NEEDED FOR PAIN MAXIMUM DAILY DOSE = FOUR TABLETS SOLD: 01/10/2020 [facility] 0.4 mg 01/10/2020 12:00:00 AM EDT capsule 30 TAKE ONE CAPSULE BY MOUTH EVERY DAY TAKE ONE CAPSULE BY MOUTH EVERY DAY SOLD: 01/10/2020 [facility] 10 mg 01/02/2020 12:00:00 AM EDT tablet 30 TAKE ONE TABLET BY MOUTH AT BEDTIME TAKE ONE TABLET BY MOUTH AT BEDTIME SOLD: 01/04/2020 [facility] Famotidine 40 MG Oral Tablet FAMOTIDINE 01/01/2020 12:00:00 AM EDT tab let 45 TAKE 1/2 TABLET BY MOUTH AT BEDTIME TAKE 1/2 TABLET BY MOUTH AT BEDTIME SOLD: 06/11/2020 [facility] Baclofen 10 MG Oral Tablet Baclofen 01/01/2020 12:00:00 AM EDT ORAL active MEDENT ([facility] 40 mg 01/01/2020 12:00:00 AM EDT tablet 45 TAKE 1/2 TABLET BY MOUTH AT BEDTIME TAKE 1/2 TABLET BY MOUTH AT BEDTIME SOLD: 01/02/2020 [facility] 10 mg 12/24/2019 12:00:00 AM EDT tablet 90 TAKE ONE TABLET BY MOUTH EVERY DAY TAKE ONE TABLET BY MOUTH EVERY DAY SOLD: 12/25/2019 [facility] 40 mg 12/24/2019 12:00:00 AM EDT capsule,delayed release (DR/EC) 90 TAKE ONE CAPSULE BY MOUTH EVERY DAY TAKE ONE CAPSULE BY MOUTH EVERY DAY SOLD: 12/25/2019 [facility] Famotidine 40 MG Oral Tablet FAMOTIDINE 10/18/2019 12:00:00 AM EDT tab let 45 TAKE 1/2 TABLET BY MOUTH EVERY NIGHT AT BEDTIME TAKE 1/2 TABLET BY MOUTH EVERY NIGHT AT BEDTIME SOLD: 10/23/2019 [facility] 10 mg 10/05/2019 12:00:00 AM EDT tablet 90 TAKE ONE TABLET BY MOUTH EVERY DAY TAKE ONE TABLET BY MOUTH EVERY DAY SOLD: 10/09/2019 [facility] 20 mg 10/05/2019 12:00:00 AM EDT tablet 30 TAKE ONE TABLET BY MOUTH EVERY DAY TAKE ONE TABLET BY MOUTH EVERY DAY SOLD: 10/09/2019 [facility] 40 mg 10/05/2019 12:00:00 AM EDT capsule,delayed release (DR/EC) 90 TAKE ONE CAPSULE BY MOUTH EVERY DAY TAKE ONE CAPSULE BY MOUTH EVERY DAY SOLD: 10/09/2019 [facility] 10 mg 09/14/2019 12:00:00 AM EST capsule 60 TAKE ONE CAPSULE BY MOUTH AT BEDTIME FOR 7 DAYS THEN INCREASE TO TAKE TWO CAPSULES BY MOUTH AT BEDTIME TAKE ONE CAPSULE BY MOUTH AT BEDTIME FOR 7 DAYS THEN INCREASE TO TAKE TWO CAPSULES BY MOUTH AT BEDTIME SOLD: 10/18/2019 [facility] 10 mg 09/14/2019 12:00:00 AM EST capsule 60 TAKE ONE CAPSULE BY MOUTH AT BEDTIME FOR 7 DAYS THEN INCREASE TO TAKE TWO CAPSULES BY MOUTH AT BEDTIME TAKE ONE CAPSULE BY MOUTH AT BEDTIME FOR 7 DAYS THEN INCREASE TO TAKE TWO CAPSULES BY MOUTH AT BEDTIME SOLD: 12/15/2019 [facility] 10 mg 09/14/2019 12:00:00 AM EST capsule 60 TAKE ONE CAPSULE BY MOUTH AT BEDTIME FOR 7 DAYS THEN INCREASE TO TAKE TWO CAPSULES BY MOUTH AT BEDTIME TAKE ONE CAPSULE BY MOUTH AT BEDTIME FOR 7 DAYS THEN INCREASE TO TAKE TWO CAPSULES BY MOUTH AT BEDTIME SOLD: 11/19/2019 [facility] 10 mg 09/14/2019 12:00:00 AM EST capsule 60 TAKE ONE CAPSULE BY MOUTH AT BEDTIME FOR 7 DAYS THEN INCREASE TO TAKE TWO CAPSULES BY MOUTH AT BEDTIME TAKE ONE CAPSULE BY MOUTH AT BEDTIME FOR 7 DAYS THEN INCREASE TO TAKE TWO CAPSULES BY MOUTH AT BEDTIME SOLD: 09/16/2019 [facility] Nortriptyline 10 MG Oral Capsule Nortriptyline HCL 09/14/2019 12:00 :00 AM EST active MEDENT ([facility], ) 20 mg 08/14/2019 12:00:00 AM EST tablet 30 TAKE ONE TABLET BY MOUTH EVERY DAY TAKE ONE TABLET BY MOUTH EVERY DAY SOLD: 10/29/2019 [facility] 20 mg 08/14/2019 12:00:00 AM EST tablet 30 TAKE ONE TABLET BY MOUTH EVERY DAY TAKE ONE TABLET BY MOUTH EVERY DAY SOLD: 08/17/2019 [facility] 20 mg 08/14/2019 12:00:00 AM EST tablet 30 TAKE ONE TABLET BY MOUTH EVERY DAY TAKE ONE TABLET BY MOUTH EVERY DAY SOLD: 09/16/2019 [facility] Paroxetine HCL Paroxetine HCL 07/23/2019 12:00:00 AM EST ORAL active [facility] ([facility] 5-325 mg 07/19/2019 12:00:00 AM EST tablet 20 TAKE ONE TABLET BY MOUTH EVERY 6 HOURS NEEDED FOR PAIN MAXIMUM DAILY DOSE = FOUR TABLETS TAKE ONE TABLET BY MOUTH EVERY 6 HOURS NEEDED FOR PAIN MAXIMUM DAILY DOSE = FOUR TABLETS SOLD: 07/19/2019 [facility] Acetaminophen 325 MG / Oxycodone Hydroch loride 5 MG Oral Tablet [Percocet] Percocet 5-325 MG Percocet 5-325 MG 07/19/2019 12:00:00 AM EST active 1 tablet eCW1 ([facility]) Acetaminophen 325 MG / Oxycodone Hydroch loride 5 MG Oral Tablet [Percocet] Percocet 5-325 MG Percocet 5-325 MG 07/19/2019 12:00:00 AM EST active 1 tablet eCW1 ([facility]) 0.4 mg 07/19/2019 12:00:00 AM EST capsule 20 TAKE ONE CAPSULE BY MOUTH EVERY DAY TAKE ONE CAPSULE BY MOUTH EVERY DAY SOLD: 07/19/2019 [facility] 40 mg 07/03/2019 12:00:00 AM EST tablet 45 TAKE 1/2 TABLET BY MOUTH ONCE DAILY AT BEDTIME TAKE 1/2 TABLET BY MOUTH ONCE DAILY AT BEDTIME SOLD: 1 09/06/2018 [facility] Famotidine 20 MG Oral Tablet FAMOTIDINE 04/03/2019 12:00:00 AM EDT tab let 30 TAKE ONE TABLET BY MOUTH AT BEDTIME TAKE ONE TABLET BY MOUTH AT BEDTIME SOLD: 08/26/2019 [facility] Famotidine 20 MG Oral Tablet FAMOTIDINE 04/03/2019 12:00:00 AM EDT tab let 30 TAKE ONE TABLET BY MOUTH AT BEDTIME TAKE ONE TABLET BY MOUTH AT BEDTIME SOLD: 09/22/2019 [facility] 10 mg 03/22/2019 12:00:00 AM EDT tablet 30 TAKE ONE TABLET BY MOUTH EVERY DAY TAKE ONE TABLET BY MOUTH EVERY DAY SOLD: 08/26/2019 [facility] 10 mg 03/22/2019 12:00:00 AM EDT tablet 30 TAKE ONE TABLET BY MOUTH EVERY DAY TAKE ONE TABLET BY MOUTH EVERY DAY SOLD: 07/29/2019 [facility] Insurance Providers Payer name Policy type / Coverage type Policy ID Covered constitution party ID Covered constitution party's relationship to faust Policy Faust Plan Information BCBS EMPIRE YUSRA DIV [id number] SP [id number] UNITED [employer] [id number] SP [id number] UNITED [employer]CARE O [id number] S [id number] [place] [facility] Insurance [id number] 0 [id number] PMA MANAGEMENT DARIELA [facility] [id number] SP [id number] UNITED HEALTHCARE [id number] SP [id number] PMA MANAGEMENT DARIELA [facility] O [id number] O [id number] PMA MANAGEMENT DARIELA [facility] [id number] SP [id number] ONE CALL CARE MANAGEMENT O [id number] S [id number] EMPIRE ([facility]) O [id number] S [id number] BCBS EMPIRE YUSRA DIV [id number] SP [id number] UNITED HEALTHCARE [id number] SP [id number] UNITED HE[employer]CARE [id number] SP [id number] BCBS EMPIRE YUSRA DIV [id number] SP [id number] BCBS EMPIRE YUSRA DIV [id number] SP [id number] ANSI-Commercial [id number] UNITED HEALTHCARE [id number] SP [id number] EMPIRE ([facility]) O [id number] S [id number] [facility] [place] [facility] Maintenance Organization (HMO) Self [facility] UNAVAILABLE UNAVAILABLE EMPIRE PLAN/[facility] U [id number] Self [id number] STATE INSURANCE FUND INCIDENT # [id number] SP INCIDENT # [id number] Problems, Conditions, and Diagnoses Code Display Name Description Problem Type Effective Dates Data Source(s) Gastro-esophageal reflux disease with es ophagitis, without bleeding Gastro- esophageal reflux disease with esophagitis, without bleeding Problem 04/30/2020 12:00:00 AM EDT MEDENT ([facility] [id number] Near syncope Near syncope Problem 09/14/2019 12:00:00 A M EST MEDENT ([facility] ) [id number] Dizziness Dizziness Problem 09/14/2019 12:00:00 AM ES T MEDENT ([facility] ) [id number] Subarachnoid hemorrhage Subarachnoid hemorrhage Proble m 09/14/2019 12:00:00 AM EST MEDENT ([facility] ) [id number] Tremor Tremor Problem 09/14/2019 12:00:00 AM ES T MEDENT ([facility] ) [id number] Panic disorder without agoraphobia Panic disorde r without agoraphobia Problem 07/23/2019 12:00:00 AM EST MEDENT ([facility] Surgeries/Procedures Procedure Description Date Indications Data Source(s) Inject/Drain Arthrocentesis Major Joint/Bursa/Ganglion Cyst 06/03/2020 12:00:00 AM EST MEDENT ([facility] ) APPLICATION MODALITY 1/> AREAS HOT/COLD PACKS 03/27/20 20 12:00:00 AM EDT MEDENT ([facility]) THERAPEUTIC PX 1/> AREAS EACH 15 MIN EXERCISES 12:00:00 AM EDT MEDENT ([facility]) THERAPEUTIC PX 1/> AREAS EACH 15 MIN EXERCISES 12:00:00 AM EDT MEDENT ([facility]) THERAPEUTIC PX 1/> AREAS EACH 15 MIN EXERCISES 12:00:00 AM EDT MEDENT ([facility]) Re-Eval Of PT Established Plan Of Care 20Mins Face To Face P T/Fam 03/25/2020 12:00:00 AM EDT MEDENT ([facility]) APPLICATION MODALITY 1/> AREAS HOT/COLD PACKS 03/18/20 12:00:00 AM EDT MEDENT ([facility]) THERAPEUTIC PX 1/> AREAS EACH 15 MIN EXERCISES 12:00:00 AM EDT MEDENT ([facility] MANUAL THERAPY TQS 1/> REGIONS EACH 15 MINUTES 12:00:00 AM EDT MEDENT ([facility]) MANUAL THERAPY TQS 1/> REGIONS EACH 15 MINUTES 12:00:00 AM EDT MEDENT ([facility]) THERAPEUTIC PX 1/> AREAS EACH 15 MIN EXERCISES 12:00:00 AM EDT MEDENT ([facility]) APPLICATION MODALITY 1/> AREAS HOT/COLD PACKS 03/14/20 12:00:00 AM EDT MEDENT ([facility]) APPLICATION MODALITY 1/> AREAS HOT/COLD PACKS 03/11/20 12:00:00 AM EDT MEDENT ([facility]) THERAPEUTIC PX 1/> AREAS EACH 15 MIN EXERCISES 12:00:00 AM EDT MEDENT ([facility]) APPLICATION MODALITY 1/> AREAS HOT/COLD PACKS 03/07/20 12:00:00 AM EDT MEDENT ([facility]) THERAPEUTIC PX 1/> AREAS EACH 15 MIN EXERCISES 12:00:00 AM EDT MEDENT ([facility]) THERAPEUTIC PX 1/> AREAS EACH 15 MIN EXERCISES 12:00:00 AM EDT MEDENT ([facility]) APPLICATION MODALITY 1/> AREAS HOT/COLD PACKS 03/05/20 12:00:00 AM EDT MEDENT ([facility]) THERAPEUTIC PX 1/> AREAS EACH 15 MIN EXERCISES 12:00:00 AM EDT MEDENT ([facility]) THERAPEUTIC PX 1/> AREAS EACH 15 MIN EXERCISES 12:00:00 AM EDT MEDENT ([facility] ) Physical Therapy Eval - Low Complexity 02/28/2020 12:0 0:00 AM EDT MEDENT ([facility] ) Inject/Drain Arthrocentesis Major Joint/Bursa/Ganglion Cyst 02/07/2020 12:00:00 AM EDT MED[facility] ([facility] ) ELECTROENCEPHALOGRAM W/REC AWAKE&ASLEEP 10/09/2019 12: 00:00 AM EDT MEDENT ([facility] ) ELECTROENCEPHALOGRAM W/REC AWAKE&ASLEEP 10/09/2019 12: 00:00 AM EDT MEDENT ([facility] ) NON-INVASIVE PHYSIOLOGIC STUDY EXTREMITY 3 LEVLS 09/20 12:00:00 AM EST MEDENT ([facility] ) NON-INVASIVE PHYSIOLOGIC STUDY EXTREMITY 3 LEVLS 09/20 12:00:00 AM EST MEDENT ([facility] ) NON-INVASIVE PHYSIOLOGIC STUDY EXTREMITY 3 LEVLS 09/20 12:00:00 AM EST MEDENT ([facility] ) NON-INVASIVE PHYSIOLOGIC STUDY EXTREMITY 3 LEVLS 09/20 12:00:00 AM EST MEDENT ([facility] ) TSTG ANS FUNCJ CARDIOVAGAL INNERVAJ PARASYMP 0 12:00:00 AM EST MEDENT ([facility] ) TSTG ANS FUNCJ CARDIOVAGAL INNERVAJ PARASYMP 0 12:00:00 AM EST MEDENT ([facility] ) TESTING AUTONOMIC NERVOUS SYSTEM FUNCTION 09/21/2019 1 2:00:00 AM EST MEDENT ([facility] ) TESTING AUTONOMIC NERVOUS SYSTEM FUNCTION 09/21/2019 1 2:00:00 AM EST MEDENT ([facility] ) Magnetic Resonance Angiogtaphy Head W/O Contrast Material(S) 09/19/2019 12:00:00 AM EST MEDENT ([facility] ) Magnetic Resonance Angiogtaphy Head W/O Contrast Material(S) 09/19/2019 12:00:00 AM EST MEDENT ([facility] ) Magnetic Resonance Angiography Neck W/O Contrast Materials 09/19/2019 12:00:00 AM EST MEDENT ([facility] ) Magnetic Resonance Angiography Neck W/O Contrast Materials 09/19/2019 12:00:00 AM EST MEDENT ([facility] ) MRI BRAIN BRAIN STEM W/O CONTRAST MATERIAL 09/19/2019 12:00:00 AM EST MEDENT ([facility] ) MRI BRAIN BRAIN STEM W/O CONTRAST MATERIAL 09/19/2019 12:00:00 AM EST MEDENT ([facility] ) Electrocardiogram Complete 07/13/2019 12:00:00 AM EST MEDENT ([facility] Results ID Date Data Source [id number] 08/22/2020 12:00:00 PM EST [facility] Name Value Range Interpretation Code Description Data Yasmeen rce(s) Supporting Document(s) SARS coronavirus 2 RNA Not Detected [facility] This lab was ordered by [facility] and reported by [facility]. ID Date Data Source [id number] 06/03/2020 11:20:00 AM EST MEDENT ([facility] Name Value Range Interpretation Code Description Data Yasmeen rce(s) Supporting Document(s) WBC 4.4 10E3/uL 4.1-10.9 MEDENT ([facility] NORMAL RANGES Age WBC RBC HGB HCT [...] HCT IS 5% LESS SOURCE FOR DATA: [employer] 1800 OPERATION MANUAL( AUTOMATED BLOOD COUNTS AND DIFF.) APPENDIX B-3 HGB 16.8 g/dL 12.0-18.0 [facility] ([facility] NORMAL RANGES Age WBC RBC HGB HCT [...] AUTOMATED BLOOD COUNTS AND DIFF.) APPENDIX B-3 RBC 5.48 10E6/uL 4.20-6.30 [facility] ([facility] NORMAL RANGES Age WBC RBC HGB HCT [...] AUTOMATED BLOOD COUNTS AND DIFF.) APPENDIX B-3 MCH 30.7 pg 26.0-32.0 [facility] ([facility] NORMAL RANGES Age WBC RBC HGB HCT [...] HCT IS 5% LESS SOURCE FOR DATA: [employer] 1800 OPERATION MANUAL( AUTOMATED BLOOD COUNTS AND DIFF.) APPENDIX B-3 MCV 89.1 fL 80.0-97.0 [facility] ([facility] NORMAL RANGES Age WBC RBC HGB HCT [...] HCT IS 5% LESS SOURCE FOR DATA: [employer] 1800 OPERATION MANUAL( AUTOMATED BLOOD COUNTS AND DIFF.) APPENDIX B-3 HCT 48.8 % 37.0-51.0 [facility] ([facility] NORMAL RANGES Age WBC RBC HGB HCT MCV PLT Adult M 4.1-10.9 4.20-6.30 12.0-18.0 37.0-51.0 80 140-440 Adult F 4.1-10.9 4.04-5.48 12.0-18.0 37.0-51.0 80 140-440 0 -1 Yr 5.0-20.0 3.9-5.9 15-18 [...] HCT IS 5% LESS SOURCE FOR DATA: [employer] 1800 OPERATION MANUAL( AUTOMATED BLOOD COUNTS AND DIFF.) APPENDIX B-3 MCHC 34.4 g/dL 31.0-36.0 [facility] ([facility] NORMAL RANGES Age WBC RBC HGB HCT MCV PLT Adult M 4.1-10.9 4.20-6.30 12.0-18.0 37.0-51.0 80 140-440 Adult F 4.1-10.9 4.04-5.48 12.0-18.0 37.0-51.0 80 140-440 0 -1 Yr 5.0-20.0 3.9-5.9 15-18 [...] HCT IS 5% LESS SOURCE FOR DATA: [employer] 1800 OPERATION MANUAL( AUTOMATED BLOOD COUNTS AND DIFF.) APPENDIX B-3 RDW-CV 13.8 % 11.5-14.5 [facility] ([facility] NORMAL RANGES Age WBC RBC HGB HCT [...] AUTOMATED BLOOD COUNTS AND DIFF.) APPENDIX B-3 PLT 217 10E3/uL 140-440 [facility] ([facility] NORMAL RANGES Age WBC RBC HGB HCT [...] AUTOMATED BLOOD COUNTS AND DIFF.) APPENDIX B-3 MXD% 12.7 % 0.1-24.0 [facility] ([facility] NORMAL RANGES Age WBC RBC HGB HCT [...] HCT IS 5% LESS SOURCE FOR DATA: [employer] 1800 OPERATION MANUAL( AUTOMATED BLOOD COUNTS AND DIFF.) APPENDIX B-3 Neut% 60.2 % 37.0-92.0 [facility] ([facility] NORMAL RANGES Age WBC RBC HGB HCT [...] HCT IS 5% LESS SOURCE FOR DATA: [employer] 1800 OPERATION MANUAL( AUTOMATED BLOOD COUNTS AND DIFF.) APPENDIX B-3 Lym% 27.1 % 10.0-58.5 [facility] ([facility] NORMAL RANGES Age WBC RBC HGB HCT MCV PLT Adult M 4.1-10.9 4.20-6.30 12.0-18.0 37.0-51.0 80- 140-440 Adult F 4.1-10.9 4.04-5.48 12.0-18.0 37.0-51.0 80- 140-440 0 -1 Yr 5.0-20.0 3.9-5.9 15-18 [...] HCT IS 5% LESS SOURCE FOR DATA: [employer] 1800 OPERATION MANUAL( AUTOMATED BLOOD COUNTS AND DIFF.) APPENDIX B-3 MXD# 0.6 10E3/uL 0.0-1.8 [facility] ([facility] NORMAL RANGES Age WBC RBC HGB HCT MCV PLT Adult M 4.1-10.9 4.20-6.30 12.0-18.0 37.0-51.0 80-97 140-440 Adult F 4.1-10.9 4.04-5.48 12.0-18.0 37.0-51.0 80- 140-440 0 -1 Yr 5.0-20.0 3.9-5.9 15-18 [...] HCT IS 5% LESS SOURCE FOR DATA: [employer] 1800 OPERATION MANUAL( AUTOMATED BLOOD COUNTS AND DIFF.) APPENDIX B-3 Lym# 1.2 10E3/uL 0.6-4.1 [facility] ([facility] NORMAL RANGES Age WBC RBC HGB HCT MCV PLT Adult M 4.1-10.9 4.20-6.30 12.0-18.0 37.0-51.0 140-440 Adult F 4.1-10.9 4.04-5.48 12.0-18.0 37.0-51.0 140-440 0 -1 Yr 5.0-20.0 3.9-5.9 15-18 [...] HCT IS 5% LESS SOURCE FOR DATA: [employer] 1800 OPERATION MANUAL( AUTOMATED BLOOD COUNTS AND DIFF.) APPENDIX B-3 Neut# 2.6 % 2.0-7.8 [facility] ([facility] NORMAL RANGES Age WBC RBC HGB HCT [...] AUTOMATED BLOOD COUNTS AND DIFF.) APPENDIX B-3 MPV 11.1 fL 9.0-13.0 [facility] ([facility] NORMAL RANGES Age WBC RBC HGB HCT [...] HCT IS 5% LESS SOURCE FOR DATA: [employer] 1800 OPERATION MANUAL( AUTOMATED BLOOD COUNTS AND DIFF.) APPENDIX B-3 ID Date Data Source [id number] 05/13/2020 10:30:00 AM EDT [facility] Name Value Range Interpretation Code Description Data Yasmeen rce(s) Supporting Document(s) Follow Up [facility] LCKSBx6sGfODHjLzOMOyPfwDSZtkAVscFACoH9P4SUmzJg3GJGemsaPfDRAkPp0+RYTjVY6ztg3lMJRl gMy [file] fnX2digvPUGUL0fOqTrT76YVD4Mc6WCmXwTJ43+Cabinet Worker [file] BdhKGYO1L5BQju/ZBRPsHqSKjNnWQPHdxYgGDH9+spine nurse [file] 0yFmE2NB2kuheunqLVvXnwc+8CPp4pQZYvcIFayr7jKwls4SPyKb8vFhVVEZ4j/0s8hW69AMReYI+DOCUMENT MANAGER Kenn/VBSF9BfK/SYeqx0SKZccfY76pnQRQOD5Fgm2B2 [file] 9wTumnY9qbFulxuSOh5KfYqATcMQdjYMaSfxsxM11SfJhbzxosXG9//V6ebTifb/YmkLhjsgoAPvo tehyQIZ08UZsPcvRZJ5hmvs9lMpTUz+NxNvVPfpuRF 7MaOwF3BhryVdwNSdRCjV8CmLiQXSm2nsEdlRCf/zUnaSSQQztSVVSyoFEn/C3DbL23f86puemeGdjMk p+346TUhLJdDX3metc/7WHq5OXmQETf//OAEuHcT8wRlA/jlbL/8EQQhzuu7PiLnEnPuyOGa7GnpIyUO c8Ew4Z23XZ1D8h2PQz7Mx1+z6KpXy+TWOXjB9pb6oS q31qhgPTUFZ3bZy3cvCGUhRtOIaXDhCJUUmb7OtBZ5VmWQv13zXuVmla6gf/f4YyGjP7HrZ35/c+rrH0 wKSSbtB0ldLsiw3tlGv657FYG4YGIseb0hOjtuvUFwDf8WzieP18GM6eSAZC69dBoB4uXvAKQv2OCPZG SNu/QF5hcYMxXg0+Ed8ZZol1RHE8djc1JLqtvqkM1S Ngx1bkHPu54NsQnWDdWV86LvLPw/vp informatics/OhoszNSv5k4NjN41WsLADSLcG8T7Kp9KG7Ybwkvw4JnSoFJee [file] 7OFrR+zuwYYUxvudCtGSws7bWGN4lloO/wWitXsquK4HgngZ3afA8o3+NURSE OUTREACH CASE MANAGER/us2NmSARVZyX737ahbDVt [file] R4wuLKDw0YYh+JhRm7L/9XXuLz/4OXgLKeJ/gxlbs+aC4P42m00Njg98MHgQVsESmERpiw8NRp8u+NURSE OUTREACH CASE MANAGER+ [file] gear grinder+uC8LJ8d/j9ZS6DQW8c6FjSO4KVlF9PHT/9Y6nItJVcqCC6ScMmk5C076VpXa6liaXCiz3SuwA8ss [file] lKdEDm8OSdHomvBxFpvD7fc5EEO+NURSE OUTREACH CASE MANAGER/EugdaHEXc8w [file] TcFEEhYvRSBuqOpkWrM5ZQrUWM2K1glmfnrKv+NURSE OUTREACH CASE MANAGER/j [file] hospitality specialist+wn23sgCvR+3zhVNCqACNC1M9ttTAd04PC3ndJR7hR8N67dmNpGhsLXpB+6j1VAh6xvaFAj4umtC2 [file] informatics [file] bd7/wJWsXdXvltVSfxJwwKbGal1AibtdL7PHE+uRnEV+Ac0uM3wSqTsbdiaaY2/Graphics Production Specialist+cQZRSay+/Tcqp [file] w2230OW0A8KJeoJTwDfw6wB+6z+zyN3HXd+nX6DGp8085PTFfv9kEHg2UchRVdzCP50pYlKJCES5+long-term [file] ROLLER MILL OPERATOR/Vg9HtKqt8VJE1H2V/QVAg+O3+1t4NybHxNPyMY [file] kXX1DUexHbYsBE1GT3U/STRAIGHTENING MACHINE FEEDER/skKk8DKdmM17kI5BrOq [file] cH+DOFyD7sYqhR/eOEs9Y6cXbFXHwJsvTNHbmqH/coelho 2zixG/NLjb71PXgK7Ri9T5vyg5rUtadXmr/A8BvVUg9KT6oLvefwm/qQJbzVVgM33nrLHmSejsKYTGlt emLyeIAAF9P6+lyOXRFmvfGj48fep+RkYBnvW4sziHsC1PTIdtkiq2oH5iqSCpbjk2NEi4V12SbuPt02 Jx45PFyUxj82+5Xv/Q3e0LSIGmhzuFk8K0NkRA+KwC d5pLsGGLzTC9aP/nE9axIB5WA/him analyst+v2G1ej8lil9GHiPtu92cGex69IET9PR+6z6Ld/IttpWqOJTYVw [file] L7A69AgcnNykQkttWRJ+LMqfPz+k7YYJNtXPK4O/DBRtmMveMkt7c1whdd5bsZfPKDM8LuZLIf9SP/STRAIGHTENING MACHINE FEEDER [file] 4yvExaT2kFYEjg1jh0P/WtN+BLEACHING MACHINE OPERATOR/V6Ka3XVz0tpP4Lwf0G+ZKhH7T0gnZWir3syAEYlIgK8CdB1xjyQ0 [file] OwAkXhblHseSQaU3bxyoB5KKhZGipTus434HQsVoAw2K2+warning analyst/Q8JVPNJZTEFpxq2j8Vurl95LCW1Xdzj [file] nEHRstuJUcsCkjJNVQJaMzWaE4FsTMHfEpKO8K ID Date Data Source [id number] 04/30/2020 04:29:00 PM EDT [facility] ([facility] Name Value Range Interpretation Code Description Data Yasmeen rce(s) Supporting Document(s) Prostate specific Ag [Mass/volume] in Serum or Plasma 0.60 ng/mL 0.0- 4.0 [facility] ([facility] ID Date Data Source [id number] 04/30/2020 04:28:00 PM EDT [facility] ([facility] Name Value Range Interpretation Code Description Data Yasmeen rce(s) Supporting Document(s) Thyrotropin [Units/volume] in Serum or Plasma 1.553 ulU/mL 0.60-4.8 [facility] ([facility] ID Date Data Source [id number] 04/30/2020 04:28:00 PM EDT [facility] ([facility] Name Value Range Interpretation Code Description Data Yasmeen rce(s) Supporting Document(s) Cholesterol in HDL [Mass/volume] in Serum or Plasma 44 mg/dL 35-55 [facility] ([facility] CHRONIC KIDNEY DISEASE STAGING PER NKF: MALE GFR INTERPRETATION: 20-49 YRS: [...] DESIRABLE: <130 MG/DL <110 MG/DL BORDERLINE-HIGH RISK: 130- 159 MG/DL 110-129 MG/DL HIGH RISK: >160 MG/DL >130 MG/DL *CHILDREN AND ADOLESCENTS REPRESENTS INDIVIDUALA AGED 2-19 YEARS EXCLUSIVE. Trig 159 mg/dL 35-200 [facility] ([facility] CHRONIC KIDNEY DISEASE STAGING PER NKF: MALE GFR INTERPRETATION: 20-49 YRS: [...] DESIRABLE: <130 MG/DL <110 MG/DL BORDERLINE-HIGH RISK: 130- 159 MG/DL 110-129 MG/DL HIGH RISK: >160 MG/DL >130 MG/DL *CHILDREN AND ADOLESCENTS REPRESENTS INDIVIDUALA AGED 2-19 YEARS EXCLUSIVE. Chol 153 mg/dL 0-200 [facility] ([facility] CHRONIC KIDNEY DISEASE STAGING PER NKF: MALE GFR INTERPRETATION: 20-49 YRS: [...] DESIRABLE: <130 MG/DL <110 MG/DL BORDERLINE-HIGH RISK: 130- 159 MG/DL 110-129 MG/DL HIGH RISK: >160 MG/DL >130 MG/DL *CHILDREN AND ADOLESCENTS REPRESENTS INDIVIDUALA AGED 2-19 YEARS EXCLUSIVE. LDL_C 78 Calc 75-129 [facility] ([facility] CHRONIC KIDNEY DISEASE STAGING PER NKF: MALE GFR INTERPRETATION: 20-49 YRS: [...] DESIRABLE: <130 MG/DL <110 MG/DL BORDERLINE-HIGH RISK: 130- 159 MG/DL 110-129 MG/DL HIGH RISK: >160 MG/DL >130 MG/DL *CHILDREN AND ADOLESCENTS REPRESENTS INDIVIDUALA AGED 2-19 YEARS EXCLUSIVE. Cho/HDL Ratio 3.5 CALC MEDRACHAEL ([facility] CHRONIC KIDNEY DISEASE STAGING PER NKF: MALE GFR INTERPRETATION: 20-49 YRS: [...] DESIRABLE: <130 MG/DL <110 MG/DL BORDERLINE-HIGH RISK: 130- 159 MG/DL 110-129 MG/DL HIGH RISK: >160 MG/DL >130 MG/DL *CHILDREN AND ADOLESCENTS REPRESENTS INDIVIDUALA AGED 2-19 YEARS EXCLUSIVE. ID Date Data Source [id number] 04/30/2020 04:28:00 PM EDT BRISEIDA ([facility] Name Value Range Interpretation Code Description Data Yasmeen rce(s) Supporting Document(s) BUN 13 mg/dL 8-23 BR[facility]IDA ([facility] CHRONIC KIDNEY DISEASE STAGING PER NKF: MALE GFR INTERPRETATION: 20-49 YRS: [...] DESIRABLE: <130 MG/DL <110 MG/DL BORDERLINE-HIGH RISK: 130- 159 MG/DL 110-129 MG/DL HIGH RISK: >160 MG/DL >130 MG/DL *CHILDREN AND ADOLESCENTS REPRESENTS INDIVIDUALA AGED 2-19 YEARS EXCLUSIVE. Glu 93 mg/dL 70-110 [facility] ([facility] CHRONIC KIDNEY DISEASE STAGING PER NKF: MALE GFR INTERPRETATION: 20-49 YRS: [...] DESIRABLE: <130 MG/DL <110 MG/DL BORDERLINE-HIGH RISK: 130- 159 MG/DL 110-129 MG/DL HIGH RISK: >160 MG/DL >130 MG/DL *CHILDREN AND ADOLESCENTS REPRESENTS INDIVIDUALA AGED 2-19 YEARS EXCLUSIVE. Creat 1.0 mg/dL 0.7-1.2 [facility] ([facility] CHRONIC KIDNEY DISEASE STAGING PER NKF: MALE GFR INTERPRETATION: 20-49 YRS: [...] DESIRABLE: <130 MG/DL <110 MG/DL BORDERLINE-HIGH RISK: 130- 159 MG/DL 110-129 MG/DL HIGH RISK: >160 MG/DL >130 MG/DL *CHILDREN AND ADOLESCENTS REPRESENTS INDIVIDUALA AGED 2-19 YEARS EXCLUSIVE. Na 139 mmol/L 136-145 [facility] ([facility] CHRONIC KIDNEY DISEASE STAGING PER NKF: MALE GFR INTERPRETATION: 20-49 YRS: [...] DESIRABLE: <130 MG/DL <110 MG/DL BORDERLINE-HIGH RISK: 130- 159 MG/DL 110-129 MG/DL HIGH RISK: >160 MG/DL >130 MG/DL *CHILDREN AND ADOLESCENTS REPRESENTS INDIVIDUALA AGED 2-19 YEARS EXCLUSIVE. BUN/Creatinine Ratio 12.7 CALC [facility] ([facility] CHRONIC KIDNEY DISEASE STAGING PER NKF: MALE GFR INTERPRETATION: 20-49 YRS: [...] DESIRABLE: <130 MG/DL <110 MG/DL BORDERLINE-HIGH RISK: 130- 159 MG/DL 110-129 MG/DL HIGH RISK: >160 MG/DL >130 MG/DL *CHILDREN AND ADOLESCENTS REPRESENTS INDIVIDUALA AGED 2-19 YEARS EXCLUSIVE. K 4.4 mmol/L 3.5-5.1 [facility] ([facility] CHRONIC KIDNEY DISEASE STAGING PER NKF: MALE GFR INTERPRETATION: 20-49 YRS: [...] DESIRABLE: <130 MG/DL <110 MG/DL BORDERLINE-HIGH RISK: 130- 159 MG/DL 110-129 MG/DL HIGH RISK: >160 MG/DL >130 MG/DL *CHILDREN AND ADOLESCENTS REPRESENTS INDIVIDUALA AGED 2-19 YEARS EXCLUSIVE. Co2 22.5 mmol/L 22.0-29.0 [facility] ([facility] CHRONIC KIDNEY DISEASE STAGING PER NKF: MALE GFR INTERPRETATION: 20-49 YRS: [...] DESIRABLE: <130 MG/DL <110 MG/DL BORDERLINE-HIGH RISK: 130- 159 MG/DL 110-129 MG/DL HIGH RISK: >160 MG/DL >130 MG/DL *CHILDREN AND ADOLESCENTS REPRESENTS INDIVIDUALA AGED 2-19 YEARS EXCLUSIVE. CL 102.3 mmol/L 98.0-107.0 [facility] ([facility] CHRONIC KIDNEY DISEASE STAGING PER NKF: MALE GFR INTERPRETATION: 20-49 YRS: [...] DESIRABLE: <130 MG/DL <110 MG/DL BORDERLINE-HIGH RISK: 130- 159 MG/DL 110-129 MG/DL HIGH RISK: >160 MG/DL >130 MG/DL *CHILDREN AND ADOLESCENTS REPRESENTS INDIVIDUALA AGED 2-19 YEARS EXCLUSIVE. CA 9.6 mg/dL 8.6-10.2 [facility] ([facility] CHRONIC KIDNEY DISEASE STAGING PER NKF: MALE GFR INTERPRETATION: 20-49 YRS: [...] DESIRABLE: <130 MG/DL <110 MG/DL BORDERLINE-HIGH RISK: 130- 159 MG/DL 110-129 MG/DL HIGH RISK: >160 MG/DL >130 MG/DL *CHILDREN AND ADOLESCENTS REPRESENTS INDIVIDUALA AGED 2-19 YEARS EXCLUSIVE. TP 7.2 g/dL 6.6-8.7 [facility] ([facility] CHRONIC KIDNEY DISEASE STAGING PER NKF: MALE GFR INTERPRETATION: 20-49 YRS: [...] DESIRABLE: <130 MG/DL <110 MG/DL BORDERLINE-HIGH RISK: 130- 159 MG/DL 110-129 MG/DL HIGH RISK: >160 MG/DL >130 MG/DL *CHILDREN AND ADOLESCENTS REPRESENTS INDIVIDUALA AGED 2-19 YEARS EXCLUSIVE. Alb 4.3 g/dL 3.5-5.2 [facility] ([facility] CHRONIC KIDNEY DISEASE STAGING PER NKF: MALE GFR INTERPRETATION: 20-49 YRS: [...] DESIRABLE: <130 MG/DL <110 MG/DL BORDERLINE-HIGH RISK: 130- 159 MG/DL 110-129 MG/DL HIGH RISK: >160 MG/DL >130 MG/DL *CHILDREN AND ADOLESCENTS REPRESENTS INDIVIDUALA AGED 2-19 YEARS EXCLUSIVE. A/G Ratio 1.5 CALC [facility] ([facility] CHRONIC KIDNEY DISEASE STAGING PER NKF: MALE GFR INTERPRETATION: 20-49 YRS: [...] DESIRABLE: <130 MG/DL <110 MG/DL BORDERLINE-HIGH RISK: 130- 159 MG/DL 110-129 MG/DL HIGH RISK: >160 MG/DL >130 MG/DL *CHILDREN AND ADOLESCENTS REPRESENTS INDIVIDUALA AGED 2-19 YEARS EXCLUSIVE. Alt (SGPT) 38 U/L 0-41 [facility] ([facility] CHRONIC KIDNEY DISEASE STAGING PER NKF: MALE GFR INTERPRETATION: 20-49 YRS: [...] DESIRABLE: <130 MG/DL <110 MG/DL BORDERLINE-HIGH RISK: 130- 159 MG/DL 110-129 MG/DL HIGH RISK: >160 MG/DL >130 MG/DL *CHILDREN AND ADOLESCENTS REPRESENTS INDIVIDUALA AGED 2-19 YEARS EXCLUSIVE. Globulin 2.8 CALC [facility] ([facility] CHRONIC KIDNEY DISEASE STAGING PER NKF: MALE GFR INTERPRETATION: 20-49 YRS: [...] DESIRABLE: <130 MG/DL <110 MG/DL BORDERLINE-HIGH RISK: 130- 159 MG/DL 110-129 MG/DL HIGH RISK: >160 MG/DL >130 MG/DL *CHILDREN AND ADOLESCENTS REPRESENTS INDIVIDUALA AGED 2-19 YEARS EXCLUSIVE. Alp 83.2 U/L 40-129 [facility] ([facility] CHRONIC KIDNEY DISEASE STAGING PER NKF: MALE GFR INTERPRETATION: 20-49 YRS: [...] DESIRABLE: <130 MG/DL <110 MG/DL BORDERLINE-HIGH RISK: 130- 159 MG/DL 110-129 MG/DL HIGH RISK: >160 MG/DL >130 MG/DL *CHILDREN AND ADOLESCENTS REPRESENTS INDIVIDUALA AGED 2-19 YEARS EXCLUSIVE. Ast (Sgot) 21 U/L 0-40 [facility] ([facility] CHRONIC KIDNEY DISEASE STAGING PER NKF: MALE GFR INTERPRETATION: 20-49 YRS: [...] DESIRABLE: <130 MG/DL <110 MG/DL BORDERLINE-HIGH RISK: 130- 159 MG/DL 110-129 MG/DL HIGH RISK: >160 MG/DL >130 MG/DL *CHILDREN AND ADOLESCENTS REPRESENTS INDIVIDUALA AGED 2-19 YEARS EXCLUSIVE. Tbili 0.63 mg/dL 0.0-1.2 [facility] ([facility] CHRONIC KIDNEY DISEASE STAGING PER NKF: MALE GFR INTERPRETATION: 20-49 YRS: [...] DESIRABLE: <130 MG/DL <110 MG/DL BORDERLINE-HIGH RISK: 130- 159 MG/DL 110-129 MG/DL HIGH RISK: >160 MG/DL >130 MG/DL *CHILDREN AND ADOLESCENTS REPRESENTS INDIVIDUALA AGED 2-19 YEARS EXCLUSIVE. eGFR 98 # [facility] ( [facility] CHRONIC KIDNEY DISEASE STAGING PER NKF: MALE GFR INTERPRETATION: 20-49 YRS: [...] DESIRABLE: <130 MG/DL <110 MG/DL BORDERLINE-HIGH RISK: 130- 159 MG/DL 110-129 MG/DL HIGH RISK: >160 MG/DL >130 MG/DL *CHILDREN AND ADOLESCENTS REPRESENTS INDIVIDUALA AGED 2-19 YEARS EXCLUSIVE. Osmolality-Calculated 277.6 CALC MED ENT ([facility] CHRONIC KIDNEY DISEASE STAGING PER NKF: MALE GFR INTERPRETATION: 20-49 YRS: [...] DESIRABLE: <130 MG/DL <110 MG/DL BORDERLINE-HIGH RISK: 130- 159 MG/DL 110-129 MG/DL HIGH RISK: >160 MG/DL >130 MG/DL *CHILDREN AND ADOLESCENTS REPRESENTS INDIVIDUALA AGED 2-19 YEARS EXCLUSIVE. Anion Gap 19 mmol/L [facility] ([facility] CHRONIC KIDNEY DISEASE STAGING PER NKF: MALE GFR INTERPRETATION: 20-49 YRS: [...] DESIRABLE: <130 MG/DL <110 MG/DL BORDERLINE-HIGH RISK: 130- 159 MG/DL 110-129 MG/DL HIGH RISK: >160 MG/DL >130 MG/DL *CHILDREN AND ADOLESCENTS REPRESENTS INDIVIDUALA AGED 2-19 YEARS EXCLUSIVE. eGFR Non-Afr. [place] 85 # [facility] ([facility] CHRONIC KIDNEY DISEASE STAGING PER NKF: MALE GFR INTERPRETATION: 20-49 YRS: [...] DESIRABLE: <130 MG/DL <110 MG/DL BORDERLINE-HIGH RISK: 130- 159 MG/DL 110-129 MG/DL HIGH RISK: >160 MG/DL >130 MG/DL *CHILDREN AND ADOLESCENTS REPRESENTS INDIVIDUALA AGED 2-19 YEARS EXCLUSIVE. ID Date Data Source CT ABD & Pelvis w/o Contrast 04/30/2020 02:12:53 AM EDT eCW1 ([facility]) Name Value Range Interpretation Code Description Data Yasmeen rce(s) Supporting Document(s) eCW1 ([facility]) ID Date Data Source [id number] 03/18/2020 12:00:00 AM EDT [facility] Imaging Clifford Hinojosa MD Patient Name: [id number] Date of : 1965[address] [facility]: [facility]2020[facility] [id number] Fax: [phone] EXAM: MRI SHOULDER RIGHT W/O CONTRASTCLINICAL INFORMATION:Comparison is a plain film study of the right shoulder dated 01/29/2020.The MRI study today is performed with T1, T2 and gradient echo data sets insagittal, axial and coronal projections.There is acromioclavicular osteoarthritis. There is a small amount offluid in the acromioclavicular joint which could be physiologic orinflammatory. There is minimal capsular hypertrophy and minimalimpingement of the supraspinatus tendon.There is a minimal amount of fluid in the subacromial bursa which could bephysiologic or bursitis.There are small areas of intermediate intrasubstance signal in the mid anddistal supraspinatus tendon compatible with tendinosis. There is no tendonretraction.The infraspinatus and teres minor tendons are unremarkable.The subscapularis tendon is unremarkable. The transverse ligament isunremarkable. The biceps long head tendon is unremarkable. There is nointrasubstance signal or tear. There is a small joint effusion and a smallvolume of fluid in the biceps long head tendon. This could be physiologicor evidence of biceps long head tenosynovitis.There is a complex tear in the superior glenoid labrum.The acromioclavicular ligament is un remarkable.IMPRESSION:Complex tear in the superior glenoid labrum.Small volume of fluid in the biceps long head tendon sheath, physiologicvs. tenosynovitis. There is no tear or intrasubstance signal in the bicepslong head tendon.Tendinosis of the mid and distal supraspinatus tendon.Acromioclavicular osteoarthritis.Small volume of fluid in the subacromial bursa, physiologic vs. bursitis.Accredited by the [employer] in [place].You Alfaro, MDDJW/jmcTtyra you for referring MARINE SOTO to our office. Electronically Signed - YOU ALFARO MD 03/18/20 13:49 Name Value Range Interpretation Code Description Data Yasmeen rce(s) Supporting Document(s) ID Date Data Source [id number] 02/05/2020 10:45:00 AM EDT [facility] Name Value Range Interpretation Code Description Data Yasmeen rce(s) Supporting Document(s) Follow Up [facility] QIFWEu1gJfGXGzDfRRBoKvzZHLmmPDbyBEYlZ9W3TBlpIy4YCTelriTmIYFnSp6+GJUiGB4odo5gLVMe gMy [file] n39zHhmthRc0NFv8wi/sb+lWWX91nDD8z688IZNEZElKuCZ0k6bQV0+power wheelchair mechanic/AK8BdY2K/MjEvPU8oSOUl [file] informatics [file] sL7E+jAdLRNyapUxESIslhCCTTgIVOboMKBwuzo+spine nurse [file] [place]/LXlOsDM0sIVjgXQUc2atH+/cn7FPqbc03B6n8A [file] tFeqml+manager book/eXRGLYs8V8YY8kre5uLxlmHt6L1aJ3l [file] /G+COELHO/+NAsagSOUTiy8MXp7C90WAvuWAStbJ62onUS SThdPqn1HcDPcdRfxBMULVZrfJfW9XnsBM1MbDJWkCXUFcTug8D0ssTC0e8g4LhPZ0gZui66vcy8tMkI X0lcrQfwmtEIFkuwRo3h8c7T8pz8gAUWGVSIY4Ojwsi9wqKR6MvQ48goSDUJ73ivzhCkBkn/eAhKw4bZ eJTwhK3YvWfbl0NpTJQCmo8ia8u7sKUOc9SAHUDAGD guW7nOxv5gTEj/8GqSO4GfmU6AwElZoJ20a2U6mn8rl3gf+VmXm/pwXMsz3vZj1kXRS/AhCvJTsvOuJ8 eoF7G1klbw1hu+at41CBAkceE1zR3Wgc2K0sPaakiB5oWb5x4KOt5RLelZH6wf+haCB+D71VvYdrht4/ WtXLe8zuNdrjXoSQOPhZ+e1lf/Cg/i5eI9/wtTYJh7 V9zhww1FbmnYSmtbmoVRCMmuFjgSOlINP2Q4wBmguvi40ahK431JwRc05NZY1SYFnpDCqpLmaTlRcQZy YST7rmcsQP+6BzOab823mjRd5ru+4I5XhNk7WT3xR6f7rrdJfndxT7TpF9SIJOpq8Bnf2VSshwnXFNoo zCWkSEAquawPi7/UVacdahXLhRBLrNHGqhrURCAbND XwmViTWwXjTrtTq1j+5LkQChtSwn9FxKCmgxzzAK/bPuNibSz6ZY3DCayxHe6YyOLi6Cs8MVOsjU+[place] 68jYm5rl1+W0iaBR3+0TV0+Jbmk9cJPsKPKUCGKSZy7m+1kLp2zfXpLNP9FF9ywxx3U1EmxyfuRaG0/Y jJwcEKyEtB1y9/3he4gjVBT73Mq3Y58of5smBs+QM0 cKrpOkxG9Iu7tX63uSCWAD+iGMoB2PwQqcKvodDCV/Un9n7v5Rp5tLuqb3iyyChztwct9gpvNlO23IvC Ak34FdywYMKn9cB9D0f7tILaYtIeI1XzNVf9WYMUtNQbkucLdmQCMVppK+AILX6YreAUStQ8doPctEo7 ZPySV32gEZvoKhCn7ba+KT+y5P7WX0DC2bFrA3 [file] okhFUcSGCVSrLpFrrAWe1mX0RCPy+D0X3el55D/blanket weaver [file] qCAWng0MWVXtonyiJUSmZc1s++NURSE OUTREACH CASE MANAGER+PyPN7nmrI65w8gB6ebh2KGkT4svTWLTCV7RGx9wf0QTot51aY9l JKEUp1IeAiAgSv4ReqgCHg/6S0Fe44RTuCZt5FD7Tn RZPGLogLwGd60aD9LSXmbTdxa5PltdNH6LkdK+OMAR/8/jo5jLZi3tggyUsRpBfJB+rlSZ/JlJZMzZCmXS [file] chioHkwkpIdtD89bryGkgofvlrFG7+pbueEQamhRpu kr8mQxBYuhns0sD0MO+HRBU35Mcx4/sc6ZJJ6qvm6cqRR6H19sk8Vl0MtSU2MU6l8hFp63BN23UI6bq/ InaArBKytI5XR79hQYX5EQGvhJQspnBUBR4mtW/IyT9GGkyDBR+ZeKe4bfNbB2cZgIqTtDiFNNeZihY3 Mp+scOFPdQd4zSFoohEEMB2Y7uL42shlOLkeaXMsIv AJ5/1dqTiLh8pOm8/RcxnXpveVm1FgqsqSMjXQocE00knTonipx6izCYXhH2vd/Z1FlLSW6PSNqvcy+p 46feMSvN896XiZvibXHUhXqALE45urPfdm6FfF29XPNAgotjx49imQYOroOZZ3bB2aXVpGbjXwQ/Mwpr pm86kEBx52i+rbcsbqIrfyX9IjoLv8aiWllcnd7SGh LC6rIw7Tg936zMgZkPvHGfenufYUZ2oTT/5sYqAAu48Wo0x/G372Np6jP2AsxkA1i+TelIW+C+4axAjf 1FbgSxrMaKafZ1vfKkIsayySnXxY5Tnqc/mqKo5iyY9LzNl+mABO2vEcOwJA8ZAwNUrwa3+fqNN4MYNQ Oc/4LFLKGQ3vsTdGnpK3ixlXT5FJlUTi+7G0iTCSON RS311ZPaD/ZnzCAVkFwqrUtqObtNKMpOBDur89nGeswaosJPc9TKwH+NqcDq532leoGnqA0e42Q2mFAc nBdmmRpf8fzj7kN9IQHnkkBSIMPLJAQerGq1D0WvfKVytJeBJWbp6qiHtS6UuRT6t75Ra8SQzjXHnrh9 mM5baXXAWKgBlZ/go9a2t2WP5UEY/PP522fZmGTOqL aC8iyXCyuv3B8/4ryKt4ecu1khJmbGFhNPjVznb09G/LlIPjboCo1agpMBS56YuE54Hha5e/+QNITGR6 deYKQagu7TXYZa66IyyYD+9BJTAGnPT9T0Ngs3m7I/x9b/[place]/Qf3/Mpe3I4V+jt1+x+c2yzN4j3y/i [file] iIKwQCYeLM7hKr8EWoTOv7KmJ20lwZdbC2nuO3/Az1wiXVhGhpcykqcu3zN+[place]+pVmmpB2xRac4fZYo NL3WHmZL7HoUka8sN4VddvCH6UDLnb4mMUCbMu9ePi BV9RMa5G4F0F+ryGP10qVIO1tHCYRcdhffye6Ik5fu+/RmIrO8nFWpqaugXktnJ3QlvUuy8fZpsgn+9W qJTJ3ifvITo941JfkoFrZbDW6CYR19hiLbFtVeWDLy95S+eu7VjiXTxH7U0nwAJPc3pE9Mb36WB9cIL6 Hdtta4Q4ADrbDF35rs5BxZkyy6XgTXXkyypfd3ca2t Q69dNwuKUN+/5X6eMQeGILbUzjqE/Z2jVhh/a9fiRPb0S29WF/OCH2V1+DaW4qQsWeM2QRr2LbvuTcum fEFMyrDqtYErB72JdPPDchyzYcjc9/jtZZS8TNX0XOPb/pvbGo5K/Rrw4jfGhfA2IuSdwUDGYlqNF6K4 bsLPf7wlYuHdn0dn5nO+4iqLPW/JZMfGaq2WLjSvLZ vbhNbYM48VXa47Ti5sXljdUF9uTiIsvD86W0XKV4gtPZbxZOc6U3bLo9qhTit+6Sa6q03TI6yZVMqBkN Bc8SusJCxz6oDp1jeQ/nV33hUfchuwyZPdQ6dgxbFexsca/eeb7Ek2iWawdB2rGgA7UvWdFj0YS3roOP r/ePRfMBacCxRFAOUW27i2S3hNE3exr8v+3PiQFs3u nLo91U44Y2eHRmbGaI7EehDePRzQ2F8OAKfPbdEauH4DEadmNbbGVxywikO6yTbTwPavoT9IPUW+zN4q Ytn7KOEwsnjoWBHVRsLGZZi7+j6L4ti6aqwpj2A8o3yQR/sYoECDKxB52+R9vqhOgyuAp1by/RYc+SCOTTIE [file] GCitCIT/zPX5OG2glSDCwNOwiyc5fA+Brandan+Z6meDg+d3yiLh+W36t2SpusxVvUUtdrkO2V5BFH4emj62 UCD88tp7GNrJj6noCrYxWxLIB2dBJrXW2H4gUZPO+wN7LlI2rk87ufFU6rvctSWy6XCxvOBaiAuC8ynK Fu0ous6e/Pgewa3TZh93LkmpvQ5+QQ8s0a+VWmnRCi LbsiesxWg7ncR2nvny7XJ6AkxpDJjT61XyW3b6Yb5dZLb8eNDSvsOBz8+9FNZllhs/b8Nu7YxPrfL2Qq quyh9CjOw/s4gqCk3TFJ28PP6jilbFgkQX37jJSKDsAqshyyJUwZvJUyJ/ClHSPtHZWYxj93EQuPBQiY mQMKfPat7UUyHlPheoGLz3nA/xScLKtP+ZT8w2to4i 370Rz4QHV2wuDJkxF9jSJK9kGwmJMm2pmCt/TfdwXi/TGxEJvKX8P3wkMWEbF1Ph420IGk7qzG+XbUJ9 gqJxpBnLjzigh122Ll3Ju+zyLH1/UHYemeOrz4uOYh/ssRK1PfUgjUnEUQOjZamRjuGZ2WhyefZO87t+ WGoqtGsSHTbOndnhVPsEhSBWkfFAbWoKE1WjacNYK9 Pfyh3AFASi4oHp0BdH+2enJrmeq2oNZigXACeIq8uSMo4nE3aPFuBTkW0fzD+VZzbrAQk3dYKUr70nYp 5z27n6Hb8XqMXo9AYs05kjJo8oV60DZDrwAXtvT77FBkFe1HfTVcNuNN1P6MABJXjQBjgiPPf88FK/ye senior office assistant/bwxuTlXm1PlJzlYWLelTiheLmFweRYfsXJL5tHi [file] ot55df/Jose Juan/39o0V166j7+m1XcaBfj/bIwc/g9dD9kv+oJxGDtfQdtoLezUsdCw7BjcXHWKo1b9GSUtq [file] Practice Coordinator+S1iytNpXIfMjnsmsS/pAFKhKgybwo5znj7NWz1DNCiPzx2qZJMepk2bofQzpHkRkoxm1xPIG5RWc [file] I2FRxSes1jgfj4b1vWbvtiypwoIsxkx1U4+8zx9/[employer]romechan[employer] Design Drafter [file] AyH2IkhSVeZNYQWWAkZYL1RJDbZRMIF7NNZDQZN5SD Y+MT5Yq128UEUuPJHVE1dgJs0nVmLsQVVqY3t9AHNjRx0ZpETbAK0JGjOwN9lxXoGzUVQxJM4+c3RyZW RdCTg47bRaECXUPTJFdzsz9tPCegFOzG8p8u+ABQ0gVBARQDZkROHoIxTUq4OV8LAsatwiAKW+YgWTYU BSYMcTELnTlAEANlMO+n4OIJ9cq8UyVNIcVYgahp LhUchSKMrfhKKzxKaxJMEWRdXbSGD2WBsGPkJaRS3Q ID Date Data Source URINE CULTURE 01/14/2020 10:56:43 AM EDT [facility] ([facility]) Name Value Range Interpretation Code Description Data Yasmeen rce(s) Supporting Document(s) eCW1 ([facility]) ID Date Data Source UA URINALYSIS 01/11/2020 12:11:45 PM EDT W1 ([facility]) Name Value Range Interpretation Code Description Data Yasmeen rce(s) Supporting Document(s) Laboratory studies (set) UA URINALYS IS eCW1 ([facility]) ID Date Data Source [id number] 01/10/2020 12:00:00 AM EDT [facility] Patient Name: MER [id number] [facility] 1965[facility] [id number] Date of Exam: 01/10/2020PH#: Fax: [phone] EXAM: CT ABDOMEN & PELVIS WITHOUT CONTRASTCLINICAL INFORMATION: History of renal calculi.Stone protocol was utilized and all priors were reviewed.Limited evaluation of the solid intraabdominal organs and gallbladder showno gross abnormalities. Hepatic and splenic densities are within normallimits. There are no choleliths. Limited evaluation of the pancreas shows afew scattered calcifications particularly in the pancreatic head regionwithout evidence of a mass or ductal dilatation. The latest noncontrastenhanced exam for comparison is 04/10/2013 and these tiny pancreatic headcalcifications have a stable appearance although a few calcifications inthe pancreatic body have developed. There is no nephroureterolithiasis,hydronephrosis, or hydroureter. There are no urinary bladdercalcifications. The intraabdominal and intrapelvic bowel loops and theirmesenteries are within normal limits. There is no free fluid or free air inthe abdomen or pelvis. There is no evidence of an intraabdominal orintrapelvic mass or adenopathy. Bone window technique throughout theexamination shows the osseous structures to be stable and intact.The lung bases are clear and stable.IMPRESSION:No evidence of acute intraabdominal or intrapelvic disease. There are a fewbenign appearing pancreatic calcifications. I would, however, recommendconsideration be made for followup with contrast enhanced pancreatic MRI.Accredited by the [employer] in [place].CEZAR Navarro/Demarcus you for referring MARINE SOTO to our office. Electronically Signed - ANTWAN COOPER DO 01/11/20 12:55 Name Value Range Interpretation Code Description Data Yasmeen rce(s) Supporting Document(s) ID Date Data Source [id number] 10/21/2019 11:29:00 AM EDT [facility] ([facility] ) Name Value Range Interpretation Code Description Data Yasmeen rce(s) Supporting Document(s) Antinuclear Antibodies Direct Laboratory test result [facility] ([facility], ) Performed at: [facility] [id number] [employer]: Adalberto Griffin MD, Phone: [phone] Performed at: [facility] [id number] [employer]: Shiloh Damian MD, Phone: [phone] ID Date Data Source [id number] 10/21/2019 11:29:00 AM EDT [facility] ([facility] ) Name Value Range Interpretation Code Description Data Yasmeen rce(s) Supporting Document(s) Thiamine [Mass/volume] in Blood 186.7 nmol/L 66.5-200.0 [facility] ([facility], ) Specimen Comment: Test(s) 051434-Qezscdx E(Alpha Tocopherol); 698463- Specimen Comment: Vitamin E(Gamma Tocopherol); 332857-Nocmqnd B6; 382579- Specimen Comment: Vit. B1, Whole Blood Specimen Comment: was developed and its performance characteristics Specimen Comment: determined by [facility]. It has not been cleared or approved Specimen Comment: by the Food and Drug Administration. Pyridoxine [Mass/volume] in Serum or Plasma 10.3 ug/L 5.3-46.7 [facility] ([facility], ) Specimen Comment: Test(s) 996498-Vvbomzs E(Alpha Tocopherol); 367730- Specimen Comment: Vitamin E(Gamma Tocopherol); 548197-Jysdrcu B6; 649196- Specimen Comment: Vit. B1, Whole Blood Specimen Comment: was developed and its performance characteristics Specimen Comment: determined by [facility]. It has not been cleared or approved Specimen Comment: by the Food and Drug Administration. ID Date Data Source [id number] 10/21/2019 11:29:00 AM EDT MEDENT ([facility], ) Name Value Range Interpretation Code Description Data Yasmeen rce(s) Supporting Document(s) Vitamin E(Alpha Tocopherol) 9.3 mg/L 7.0-25.1 MEDENT ([facility], ) Vitamin E(Gamma Tocopherol) 0.9 mg/L 0.5-5.5 MEDENT ([facility], ) Reference intervals for alpha and gamma- tocopherol determined from National Health and Nutrition Examination Survey, 2881-7878. Individuals with alpha-tocopherol levels less than 5.0 mg/L are considered vitamin E deficient. ID Date Data Source [id number] 10/21/2019 11:29:00 AM EDT MEDENT ([facility], ) Name Value Range Interpretation Code Description Data Yasmeen rce(s) Supporting Document(s) Folate 23.7 ng/mL MEDENT ([facility], ) FOLATE NORMAL RANGE NORMAL GREATER THAN 5.4 NG/ML INDETERMINATE 3.4-5.4 NG/ML DEFICIENT LESS THAN 3.4 NG/ML Vitamin B12 Level 415 pg/mL MEDENT ([facility], ) VITAMIN B12 NORMAL RANGE NORMAL 247 - 911 PG/ML INDETERMINATE 211 - 246 PG/ML DEFICIENT LESS THAN 211 PG/ML ID Date Data Source [id number] 10/21/2019 11:29:00 AM EDT MEDENT ([facility], ) Name Value Range Interpretation Code Description Data Yasmeen rce(s) Supporting Document(s) Thyroid Stimulating Hormone 1.190 uIU/ML 0.358-3.740 MEDENT ([facility], ) Free T4 1.08 ng/dL 0.76-1.46 MEDENT ([facility], ) ID Date Data Source [id number] 10/21/2019 11:29:00 AM EDT MEDENT ([facility], ) Name Value Range Interpretation Code Description Data Yasmeen rce(s) Supporting Document(s) Erythrocyte sedimentation rate by 2H Westergren method 2 mm/hr 0-2 0 MEDENT ([facility], ) ID Date Data Source [id number] 10/21/2019 11:29:00 AM EDT [facility] ([facility] Name Value Range Interpretation Code Description Data Yasmeen rce(s) Supporting Document(s) Antinuclear Antibodies Direct Laboratory test result Normal (applies to non- numeric results) MEDENT ([facility] ) Performed at: [facility] [address] [id number] [employer]: Adalberto Griffin MD, Phone: [phone] Performed at: [facility] [address] [id number] [employer]: Shiloh Damian MD, Phone: [phone] ID Date Data Source [id number] 10/21/2019 11:29:00 AM EDT MED[facility] ([facility] Name Value Range Interpretation Code Description Data Yasmeen rce(s) Supporting Document(s) Vitamin B1 Level Whole Blood 186.7 nmol/L 66.5-200.0 Nor mal (applies to non- numeric results) [facility] ([facility] Specimen Comment: Test(s) [id number]-Tgcgimi E(Alpha Tocopherol); 910546- Specimen Comment: Vitamin E(Gamma Tocopherol); 900079-Twzsaoe B6; 191063- Specimen Comment: Vit. B1, Whole Blood Specimen Comment: was developed and its performance characteristics Specimen Comment: determined by [facility]. It has not been cleared or approved Specimen Comment: by the Food and Drug Administration. Pyridoxine [Mass/volume] in Serum or Plasma 10.3 ug/L 5.3- 46.7 Normal (applies to non-numeric results) [facility] ([facility] Specimen Comment: Test(s) [id number]-[id number] E(Alpha Tocopherol); 875528- Specimen Comment: Vitamin E(Gamma Tocopherol); 979398-Bylhxak B6; 909903- Specimen Comment: Vit. B1, Whole Blood Specimen Comment: was developed and its performance characteristics Specimen Comment: determined by [facility]. It has not been cleared or approved Specimen Comment: by the Food and Drug Administration. ID Date Data Source [id number] 10/21/2019 11:29:00 AM EDT MEDENT ([facility] Name Value Range Interpretation Code Description Data Yasmeen rce(s) Supporting Document(s) Vitamin E(Alpha Tocopherol) 9.3 mg/L 7.0-25.1 Norm al (applies to non-numeric results) MEDENT ([facility] ) Vitamin E(Gamma Tocopherol) 0.9 mg/L 0.5-5.5 Norm al (applies to non-numeric results) [facility] ([facility] ) Reference intervals for alpha and gamma- tocopherol determined from National Health and Nutrition Examination Survey, 9750-5197. Individuals with alpha-tocopherol levels less than 5.0 mg/L are considered vitamin E deficient. ID Date Data Source [id number] 10/21/2019 11:29:00 AM EDT MED[facility] ([facility] Name Value Range Interpretation Code Description Data Yasmeen rce(s) Supporting Document(s) Folate 23.7 ng/mL Normal (applies to non-numeric resul ts) [facility] ([facility] FOLATE NORMAL RANGE NORMAL GREATER THAN 5.4 NG/ML INDETERMINATE 3.4-5.4 NG/ML DEFICIENT LESS THAN 3.4 NG/ML Vitamin B12 Level 415 pg/mL Normal (applies to non-numeri c results) [facility] ([facility] VITAMIN B12 NORMAL RANGE NORMAL 247 - 911 PG/ML INDETERMINATE 211 - 246 PG/ML DEFICIENT LESS THAN 211 PG/ML ID Date Data Source [id number] 10/21/2019 11:29:00 AM EDT MED[facility] ([facility] Name Value Range Interpretation Code Description Data Yasmeen rce(s) Supporting Document(s) Thyroid Stimulating Hormone 1.190 uIU/ML 0.358-3.740 Norm al (applies to non- numeric results) [facility] ([facility] ) Free T4 1.08 ng/dL 0.76-1.46 Normal (applies to non-numeric resul ts) [facility] ([facility] ID Date Data Source [id number] 10/21/2019 11:29:00 AM EDT MED[facility] ([facility] Name Value Range Interpretation Code Description Data Yasmeen rce(s) Supporting Document(s) Erythrocyte sedimentation rate by Westergren method 2 mm/hr 0-20 Normal (applies to non-numeric results) [facility] ([facility] ID Date Data Source [id number] 07/23/2019 04:45:00 PM EST MED[facility] ([facility] Name Value Range Interpretation Code Description Data Yasmeen rce(s) Supporting Document(s) Urine Culture, Routine Laboratory test result MED[facility] ([facility] SRC:URINE Bacteria identified in Urine by Culture Laboratory test result [facility] ([facility] SRC:URINE ID Date Data Source [id number] 07/23/2019 04:41:00 PM EST [facility] ([facility] Name Value Range Interpretation Code Description Data Yasmeen rce(s) Supporting Document(s) Appearance of Urine Laboratory test result MED[facility] ([facility] Color Urine Laboratory test result M EDENT ([facility] Specific [place] 1.025 1.00-1.03 MED[facility] ([facility] PH Urine 5.5 5.0-8.0 MED[facility] ([facility] Glucose Urine Laboratory test result MED[facility] ([facility] Bilirubin.total [Presence] in Urine by Test strip Laboratory test res ult MED[facility] ([facility] Ketones Laboratory test result [facility] ([facility] Blood Urine Laboratory test result Above high normal MED[facility] ([facility] Protein Urine Laboratory test result Above high normal [facility] ([facility] Urobilinogen 0.2 EU/dl 0.2-1.0 [facility] ([facility] Nitrite Laboratory test result MED[facility] ([facility] Leukocytes Laboratory test result ME DENT ([facility] ID Date Data Source [id number] 07/12/2019 07:30:00 AM EST [facility] ([facility] Name Value Range Interpretation Code Description Data Yasmeen rce(s) Supporting Document(s) Blood Urea Nitrogen 14 mg/dL 7-18 Normal (applies to non-nume nicolas results) [facility] ([facility] Glucose, Fasting 105 mg/dL 70-100 Above high normal M EDENT ([facility] Sodium Level 142 meq/L 136-145 Normal (applies to non-numeric res ults) [facility] ([facility] Glomerular Filtration Rate Laboratory test result Normal (applies to non- numeric results) [facility] ([facility] ) <content>Units are mL/min/1.73 m2</content>
<content></content>
<content>Chronic Kidney Disease Staging per NKF:</content>
<content></content>
<content>Stage I & II GFR >=60 Normal to Mildly Decreased</content>
<content>Stage III GFR 30- 59 Moderately Decreased</content>
<content>Stage IV GFR 15-29 Severely Decreased</content>
<content>Stage V GFR <15 Very Little GFR Left</content>
<content>ESRD GFR <15 on BEND UP</content>
<content></content> Creatinine For GFR 0.90 mg/dL 0.70-1.30 Normal (applies to non -numeric results) [facility] ([facility] Chloride Level 108 meq/L 98-107 Above high normal MED E[facility] ([facility] Potassium Serum 4.2 meq/L 3.5-5.1 Normal (applies to non-numeric results) [facility] Carbon Dioxide Level 27 meq/L 21-32 Normal (applies to non-num milvia results) [facility] ([facility] Anion Gap 7 meq/L 8-16 Below low normal [facility] Calcium Level 8.8 mg/dL 8.5-10.1 Normal (applies to non-numeric re sults) [facility] ([facility] ID Date Data Source [id number] 07/12/2019 07:30:00 AM EST [facility] Name Value Range Interpretation Code Description Data Yasmeen rce(s) Supporting Document(s) Inr 1.03 Normal (applies to non-numeric resul ts) [facility] ([facility] THERAPUTIC HUMAN INR VALUES INDICATIONS NORMAL RANGES PROPHYLAXIS/TREATMENT OF: VENOUS THROMBOSIS 2.0-3.0 PULMONARY EMBOLISM 2.0-3.0 PREVENTION OF SYSTEMIC EMBOLISM FROM: TISSUE HEART VALVES 2.0-3.0 ACUTE MYOCARDIAL INFARCTION 2.0-3.0 VALVULAR HEART DISEASE 2.0-3.0 ATRIAL FIBRILLATION 2.0-3.0 MECHANICAL VALVES(HIGH RISK) 2.5-3.5 RECURRENT MYOCARDIAL INFARCTION 2.5-3.5 Prothrombin Time 13.2 s 11.8-14.0 Normal (applies to non-numeric results) [facility] ([facility] Partial Thromboplastin Time 28.8 s 25.0-38.4 Norm al (applies to non-numeric results) [facility] ([facility] ) ID Date Data Source [id number] 07/12/2019 07:30:00 AM EST [facility] Name Value Range Interpretation Code Description Data Yasmeen rce(s) Supporting Document(s) Hemoglobin 16.8 g/dL 13.5-17.5 Normal (applies to non-numeric resul ts) [facility] Red Blood Count 5.64 10 4.30-6.10 Normal (applies to non-numeric results) [facility] ([facility] White Blood Count 6.4 10 4.0-10.0 Normal (applies to non-numeri c results) [facility] Mean Corpuscular Volume 89.2 fl 80.0-96.0 Normal ( applies to non-numeric results) [facility] ) Mean Corpuscular Hemoglobin 29.8 pg 27.0-33.0 Norm al (applies to non-numeric results) [facility] ) Hematocrit 50.3 % 42.0-52.0 Normal (applies to non-numeric resul ts) [facility] Mean Corpuscular HGB Conc 33.4 g/dL 32.0-36.5 Normal (applies to non-numeric results) [facility]ACHA[facility] ([facility] ) Red Cell Distribution Width 13.3 % 11.5-14.5 Norm al (applies to non-numeric results) [facility] ([facility] ) Nucleated Red Blood Cell % 0.0 % 0-0 Normal (applies to n on-numeric results) MEDRACHAEL ([facility] Platelet Count, Automated 213 10 150-450 Normal (applies to non-numeric results) MEDRACHAEL ([facility] ) Procedure Vital Signs ID Date Data Source [id number] Name Value Range Interpretation Code Description Data Source(s) Oxygen saturation in Arterial blood by Pulse oximetry 98 % 98 % [facility] ([facility] Body mass index (BMI) [Ratio] 35.7 kg/m2 35.7 k g/m2 [facility] ([facility] [place] body weight 154 [lb_av] 154 [lb_av] MEDEN T ([facility] Body weight 235.00 [lb_av] 235.00 [lb_av] MEDEN T ([facility] Body height 68 [in_i] 68 [in_i] [facility] 5'8" Respiratory rate 16 /min 16 /min MEDRACHAEL ( [facility] Heart rate 100 /min 100 /min [facility] ([facility] Body temperature 97.5 [degF] 97.5 [degF] [facility] ([facility] Diastolic blood pressure 94 mm[Hg] 94 mm[Hg] [facility] Systolic blood pressure 132 mm[Hg] 132 mm[Hg] M EDENT ([facility] Body surface area Derived from formula 2.22 m2 2.22 m2 [facility] ([facility], ) Body weight 105.689 kg 105.689 kg [facility] ([facility], ) [place] body weight 160 [lb_av] 160 [lb_av] MEDEN T ([facility], ) Body mass index (BMI) [Ratio] 33.9 kg/m2 33.9 k g/m2 [facility] ([facility], ) Body weight 233.00 [lb_av] 233.00 [lb_av] MEDEN T ([facility]) Body height 69.5 [in_i] 69.5 [in_i] MEDENT ([facility]) 5'9.50" Body temperature 97.4 [degF] 97.4 [degF] MED[facility] ([facility]) Oxygen saturation in Arterial blood by Pulse oximetry 97 % 97 % [facility] ([facility] Body mass index (BMI) [Ratio] 35.0 kg/m2 35.0 k g/m2 [facility] ([facility] [place] body weight 154 [lb_av] 154 [lb_av] MEDEN T ([facility] Body weight 230.00 [lb_av] 230.00 [lb_av] MEDEN T ([facility] Body height 68 [in_i] 68 [in_i] [facility] ([facility] 5'8" Respiratory rate 18 /min 18 /min MED[facility] ( [facility] Heart rate 98 /min 98 /min [facility] ([facility] Body temperature 97.4 [degF] 97.4 [degF] [facility] ([facility] Diastolic blood pressure 64 mm[Hg] 64 mm[Hg] [facility] ([facility] Systolic blood pressure 140 mm[Hg] 140 mm[Hg] M EDENT ([facility] Body temperature 96.8 [degF] 96.8 [degF] [facility] ([facility], ) Oxygen saturation in Arterial blood by Pulse oximetry 97 % 97 % [facility] ([facility] Body mass index (BMI) [Ratio] 36.0 kg/m2 36.0 k g/m2 [facility] ([facility] [place] body weight 154 [lb_av] 154 [lb_av] MEDEN T ([facility] Body weight 237.00 [lb_av] 237.00 [lb_av] MEDEN T ([facility] Body height 68 [in_i] 68 [in_i] [facility] ([facility] 5'8" Respiratory rate 18 /min 18 /min MED[facility] ( [facility] Heart rate 116 /min 116 /min [facility] ([facility] Body temperature 97.6 [degF] 97.6 [degF] [facility] ([facility] Diastolic blood pressure 86 mm[Hg] 86 mm[Hg] [facility] ([facility] Systolic blood pressure 130 mm[Hg] 130 mm[Hg] M EDENT ([facility] Body mass index (BMI) [Ratio] 33.3 kg/m2 33.3 k g/m2 MED[facility] ([facility]) Body weight 219.00 [lb_av] 219.00 [lb_av] MEDEN T ([facility]) Body height 68 [in_i] 68 [in_i] MEDENT ([facility]) 5'8" Respiratory rate 12 /min 12 /min MEDENT ( [facility]) Body weight 104.328 kg 104.328 kg MEDENT ([facility]) [place] body weight 154 [lb_av] 154 [lb_av] MEDEN T ([facility]) Body mass index (BMI) [Ratio] 35.0 kg/m2 35.0 k g/m2 [facility] ([facility]) Body weight 230.00 [lb_av] 230.00 [lb_av] MEDEN T ([facility]) Body height 68 [in_i] 68 [in_i] MED[facility] ([facility]) 5'8" Body temperature 97.5 [degF] 97.5 [degF] MED[facility] ([facility]) Diastolic blood pressure 88 mm[Hg] 88 mm[Hg] eCW1 ([facility]) Systolic blood pressure 148 mm[Hg] 148 mm[Hg] e CW1 ([facility]) Body temperature 97.0 [degF] 97.0 [degF] eCW1 ( [facility]) Respiratory rate 18 /min 18 /min eCW1 ([facility]) Heart rate 88 /min 88 /min eCW1 ([facility]) Body mass index (BMI) [Ratio] 35.88 kg/m2 35.88 kg/m2 eCW1 ([facility]) Body height 68 [in_i] 68 [in_i] eCW1 ([facility]) Body weight 236 [lb_av] 236 [lb_av] eCW1 ([facility]) Oxygen saturation in Arterial blood by Pulse oximetry 97 % 97 % [facility] ([facility] Body mass index (BMI) [Ratio] 35.1 kg/m2 35.1 k g/m2 [facility] ([facility] [place] body weight 154 [lb_av] 154 [lb_av] MEDEN T ([facility] Body weight 231.00 [lb_av] 231.00 [lb_av] MEDEN T ([facility] Body height 68 [in_i] 68 [in_i] MED[facility] ([facility] 5'8" Respiratory rate 16 /min 16 /min MED[facility] ( [facility] Heart rate 97 /min 97 /min [facility] ([facility] Body temperature 98.0 [degF] 98.0 [degF] [facility] ([facility] Diastolic blood pressure 88 mm[Hg] 88 mm[Hg] [facility] ([facility] Systolic blood pressure 116 mm[Hg] 116 mm[Hg] M EDENT ([facility] Body mass index (BMI) [Ratio] 34.2 kg/m2 34.2 k g/m2 MED[facility] ([facility], ) Body weight 225.00 [lb_av] 225.00 [lb_av] MEDEN T ([facility], ) Body height 68 [in_i] 68 [in_i] MEDENT ([facility], ) 5'8" Respiratory rate 12 /min 12 /min MEDENT ( [facility], ) Body mass index (BMI) [Ratio] 34.2 kg/m2 34.2 k g/m2 MED[facility] ([facility], ) Body weight 225.00 [lb_av] 225.00 [lb_av] MEDEN T ([facility], ) Body height 68 [in_i] 68 [in_i] MEDENT ([facility], ) 5'8" Respiratory rate 12 /min 12 /min MEDENT ( [facility]) Heart rate 76 /min 76 /min MEDENT ([facility]) Diastolic blood pressure 88 mm[Hg] 88 mm[Hg] MED[facility] ([facility]) Systolic blood pressure 120 mm[Hg] 120 mm[Hg] M EDENT ([facility]) Diastolic blood pressure 82 mm[Hg] 82 mm[Hg] eCW1 ([facility]) Systolic blood pressure 145 mm[Hg] 145 mm[Hg] e CW1 ([facility]) Body temperature 97.8 [degF] 97.8 [degF] eCW1 ( [facility]) Respiratory rate 18 /min 18 /min eCW1 ([facility]) Heart rate 78 /min 78 /min eCW1 ([facility]) Body mass index (BMI) [Ratio] 34.21 kg/m2 34.21 kg/m2 eCW1 ([facility]) Body height 68 [in_us] 68 [in_us] eCW1 ([facility]) Body weight Measured 225 [lb_av] 225 [lb_av] eC W1 ([facility]) Oxygen saturation in Arterial blood by Pulse oximetry 97 % 97 % MED[facility] ([facility] Body mass index (BMI) [Ratio] 34.2 kg/m2 34.2 k g/m2 [facility] ([facility] Body weight 225.00 [lb_av] 225.00 [lb_av] MEDEN T ([facility] Body height 68 [in_i] 68 [in_i] MEDENT ([facility] 5'8" Respiratory rate 16 /min 16 /min MEDENT ( [facility] Heart rate 94 /min 94 /min BRISEIDA ([facility] Body temperature 98.0 [degF] 98.0 [degF] BRISEIDA ([facility] Diastolic blood pressure 78 mm[Hg] 78 mm[Hg] BRISEIDA ([facility] Systolic blood pressure 118 mm[Hg] 118 mm[Hg] M CHRISTIE ([facility] Patient Treatment Plan of Care Planned Activity Planned Date Details Description Data Source (s) Acetaminophen 325 MG / Oxycodone Hydrochloride 5 MG Or al Tablet [Percocet] 01/10/2020 12:00:00 AM EDT eCW1 ([facility]) Acetaminophen 325 MG / Oxycodone Hydrochloride 5 MG Or al Tablet [Percocet] 07/19/2019 12:00:00 AM EST eCW1 ([facility])
[2020-08-27 06:59] LABS: HEMATOCRIT 50.6 % (42.0-52.0); MEAN CORPUSCULAR HGB CONC 33.6 g/dl (32.0-36.5); MEAN CORPUSCULAR VOLUME 89.4 fl (80.0-96.0); PLATELET COUNT, AUTOMATED 218 10^3/uL (150-450); RED BLOOD COUNT 5.66 10^6/uL (4.30-6.10); WHITE BLOOD COUNT 6.8 10^3/uL (4.0-10.0)
[2020-08-27] MEDS ORDERED: fentaNYL 100 MCG/2 ML INJECTION (J3010) IV PRN ×2 (07:01→09:45)
[2020-08-27] MEDS ORDERED: MIDAZOLAM INJ 2MG/2ML VIAL (J2250 PER 1MG) IV PRN (07:01)
[2020-08-27] MEDS ORDERED: dexameTHASONE 10MG/1ML VIAL PRES.FREE (J1100 PER 1MG) As Ordered ONE (07:03)
[2020-08-27] MEDS ORDERED: MIDAZOLAM INJ 2MG/2ML VIAL (J2250 PER 1MG) As Ordered ONE ×2 (07:03→07:15)
[2020-08-27] MEDS ORDERED: fentaNYL 100 MCG/2 ML INJECTION (J3010) As Ordered ONE ×2 (07:03→07:15)
[2020-08-27] MEDS ORDERED: LIDOCAINE 1% MDV 20ML VIAL As Ordered ONE ×2 (07:03→07:16)
[2020-08-27] MEDS ORDERED: ROPIvacaine 0.5% 30ML INJECTION (J2795 PER 1MG) As Ordered ONE (07:03)
[2020-08-27] MEDS ORDERED: ONDANSETRON 4MG/2ML VIAL As Ordered ONE (07:15)
[2020-08-27] MEDS ORDERED: LIDOCAINE 2% 100MG/5ML SDV (FOR ANES.) As Ordered ONE (07:15)
[2020-08-27] MEDS ORDERED: dexameTHASONE 10MG/1ML VIAL PRES.FREE (J1100 PER 1MG) XX ONE (07:15)
[2020-08-27] MEDS ORDERED: LIDOCAINE 1% MDV 20ML VIAL XX ONE (07:15)
[2020-08-27] MEDS ORDERED: METOCLOPRAMIDE INJ 10MG/2ML VIAL (J2765 PER 1) As Ordered ONE (07:15)
[2020-08-27] MEDS ORDERED: ROCURONIUM BROMIDE 50 MG/5 ML VIAL As Ordered ONE (07:15)
[2020-08-27] MEDS ORDERED: propofoL 200 MG/20 ML VIAL As Ordered ONE (07:15)
[2020-08-27] MEDS ORDERED: ROPIvacaine 0.5% 30ML INJECTION (J2795 PER 1MG) XX ONE (07:15)
[2020-08-27] MEDS ORDERED: EPINEPHrine 1MG/ML INJ 30ML MD-VIAL As Ordered ONE (07:16)
[2020-08-27 07:22] LABS: BLOOD UREA NITROGEN 12 MG/DL (7-18); CALCIUM LEVEL 8.6 MG/DL (8.5-10.1); CARBON DIOXIDE LEVEL 30 MEQ/L (21-32); CHLORIDE LEVEL 104 MEQ/L (98-107); CREATININE FOR GFR 1.06 MG/DL (0.70-1.30); GLOMERULAR FILTRATION RATE > 60.0 (>56); GLUCOSE, FASTING 117 MG/DL (70-100); POTASSIUM SERUM 4.4 MEQ/L (3.5-5.1); SODIUM LEVEL 142 MEQ/L (136-145)
[2020-08-27] MEDS ORDERED: SUGAMMADEX SODIUM 500 MG/5 ML VIAL (BRIDION) As Ordered ONE (09:22)
[2020-08-27] MEDS ORDERED: dexameTHASONE 4 MG/ML 1ML VIAL (J1100 PER 1MG) As Ordered ONE (09:22)
[2020-08-27] MEDS ORDERED: HYDROMORPHONE HCL 0.5 MG/ 0.5 ML SYRINGE (J1170 PER 1) IV PRN (09:45)
[2020-08-27] MEDS ORDERED: ACETAMINOPHEN TAB 650MG DOSE (2X325MG) PO PRN (09:45)
[2020-08-27] MEDS ORDERED: oxyCODONE 5MG TAB PO PRN (09:45)
[2020-08-27] MEDS ORDERED: PERCOCET 5MG/325MG TAB PO PRN (09:45)
[2020-08-27] MEDS ORDERED: ONDANSETRON 4MG/2ML VIAL IV PRN ×2 (09:45)
[2020-08-27] MEDS ORDERED: MORPHINE 2 MG/ML 1ML VIAL (J2270) IV PRN (09:45)
[2020-08-27] MEDS ORDERED: LR 1,000 ML IV SCH ×2 (09:45)
[2020-08-27 10:55] VITALS: BP 109/68
--- NOTE | 2020-08-27 12:15 | RO ---
OPERATIVE NOTE DATE OF OPERATION: 08/27/2020 PREOPERATIVE DIAGNOSIS: Right shoulder type II SLAP tear. POSTOPERATIVE DIAGNOSIS: Right shoulder type II SLAP tear. PLANNED PROCEDURE: Right shoulder arthroscopy and subpectoral biceps tenodesis. PROCEDURE PERFORMED: Right shoulder arthroscopy and subpectoral biceps tenodesis. SURGEON: Clifford Hinojosa MD BUILDING CONSTRUCTION ESTIMATOR: ANESTHESIOLOGIST: Dr. Ortega ANESTHESIA: General anesthetic plus preoperative block. OPERATIVE PREAMBLE: This is 54-year-old man with signs and symptoms as well as MRI evidence of SLAP tear. He wished to go ahead with operative management. I saw him in preoperative holding, marked the right upper extremity and reiterated the surgical risks, pros and cons, risks and benefits. He wished to proceed and the patient had a preoperative block. DESCRIPTION OF PROCEDURE: The patient was brought to the operating theater. He was administered general anesthetic. He was placed in right lateral decubitus. All bony prominences were padded. An axillary roll was used. SCDs were used on the down legs. Two grams of IV Ancef were administered prior to the start of the case. Traction setup was used with 15 lb of traction with the arm in approximately 45 degrees of abduction. The limb was then prepped and draped in the usual sterile fashion with a chlorhexidine base prep solution, allowing over three minutes prep solution drying time prior to draping. A preoperative timeout was performed to confirm the site, the patient and the surgery. I began by making a standard posterior arthroscopy portal. I inserted the arthroscope into the anterior tibial portion of the shoulder. The glenoid and humeral head cartilage appeared normal. The undersurface of the rotator cuff as well as subscapularis appeared normal with lever-push maneuver. The middle glenohumeral ligament appeared normal. The labrum had an obvious type 2 superior labrum, anterior to posterior tear with instability at the root of the biceps. Overall, the biceps long head appeared overall normal aside from the obvious instability at the root. I decided to go ahead with the subpectoral biceps tenodesis. I used an inside-out spinal needle localization through the rotator interval just posterior to the biceps tendon to create an anterior working portal. I introduced electrocautery. I performed biceps tenotomy at the biceps root. I then used a shaving instrument to clean up any frayed edges of the superior labrum. Overall the labrum was stable after the biceps tenotomy. I then inserted the scope into the subacromial space. There was a minor amount of bursitis. I established a lateral portal again with spinal needle localization. I cleared away any bursa. The acromion appeared flat without obvious spur so I did not perform a subacromial decompression. I performed thorough probing of the rotator cuff and no obvious tears were noted. I then returned my attention to performing a subpectoral biceps tenodesis. I made a longitudinal incision in the upper anterior aspect of the arm centered over the long head of the biceps just distal to the pectoralis major insertion and deltoid site. I carried the dissection down through skin and subcutaneous tissue, achieving meticulous hemostasis. I incised the fascia longitudinally. I lifted up on the deltoid to visualize the long head of the biceps. I used electrocautery to incise the transverse humeral ligament and then delivered the long head of the biceps through the incision. I secured this with an Allis clamp. I then used the Arthrex loop with Alfonzo needle to perform a five whip stitches, locking the tendon distally. I removed approximately 2 cm stump of the distal end of the biceps. I then cut at the splice and passed the sutures in opposite fashion through the Arthrex metal button to create a sliding integration. I then used the spade tip drill to drill bicortically in the biceps groove just proximal to the distal insertion of the deltoid insertion in the groove. I then used a 7 mm reamer to tunnel. I thoroughly irrigated any bone dust. I passed the button bicortically, sewed the button and delivered the biceps tendon into the bony tunnel. I then passed on suture limb using a FiberLink suture that I had previously passed in the long head of the biceps and then secured the suture down over top of the tendon. I then cut the suture short and thoroughly irrigated the wound. The subcutaneous tissues were closed with interrupted 2-0 Vicryl sutures and the skin with Monocryl. Steri-Strips were applied followed by Adaptic, 4x8 gauze and ABD dressing with cloth tape. The patient's upper extremity was placed into a sling. The patient was awoken up from general anesthetic, transferred off the operating table and taken to postanesthetic unit in stable condition. All sponge, instrument and needle counts were correct. Estimated blood loss: 50 mL. Plan for the patient is to be in a sling, change dressing postop day two, no showering or the tub for two weeks. Followup in the office in two weeks time and be discharged home according to day surgery criteria. Prescriptions have been sent to the pharmacy of choice, [facility]. He will start immediate pendulum exercises but no active range of motion until four weeks postoperatively.
== END 2020-08-27 11:16 | disposition home or self-care (01) ==
LOC: M SDC 06:14
PROVIDERS: ATTEND Orthopaedic Surgery Sports Medicine
DX: M25.311 Other instability, right shoulder (principal); E78.5 Hyperlipidemia, unspecified; I10 Essential (primary) hypertension; K21.9 Gastro-esophageal reflux disease without esophagitis; F41.9 Anxiety disorder, unspecified; I65.29 Occlusion and stenosis of unspecified carotid artery; Z79.899 Other long term (current) drug therapy
CPT/HCPCS: 29828; 36415; 64415; 80048; 85027; 88304; C1713; J0690; J1100; J2250; J2405; J2765; J2795; J3010

== ENCOUNTER → 2021-05-28 | Outpatient (CLI) | payer BC, OTHER ==
[~2021-05-28] MED LIST changes: -LR 1,000 ML IV ONE; +OMEP40CA4 PO; -OMEP40CA97 PO; -ceFAZolin SOD 2 GM in IV 1 EA IV ONE
[2021-05-28 18:44] LABS: ALT/SGPT 38 U/L (12-78); BLOOD UREA NITROGEN 13 MG/DL (7-18); CALCIUM LEVEL 8.8 MG/DL (8.5-10.1); CARBON DIOXIDE LEVEL 27 MEQ/L (21-32); CHLORIDE LEVEL 106 MEQ/L (98-107); CREATININE FOR GFR 1.19 MG/DL (0.70-1.30); GLOMERULAR FILTRATION RATE > 60.0 (>56); GLUCOSE, FASTING 131 MG/DL (70-100); POTASSIUM SERUM 3.5 MEQ/L (3.5-5.1); SODIUM LEVEL 140 MEQ/L (136-145)
[2021-05-28 18:45] LABS: ALBUMIN 3.5 GM/DL (3.2-5.2); BILIRUBIN,TOTAL 0.6 MG/DL (0.2-1.0); LIPASE 164 U/L (73-393); MAGNESIUM LEVEL 2.1 MG/DL (1.8-2.4); TOTAL PROTEIN 7.4 GM/DL (6.4-8.2)
[2021-05-28 18:52] LABS: TOTAL 25(OH) VITAMIN D 36.7 NG/ML (30.0-100.0)
[2021-05-28 18:53] LABS: VITAMIN B12 LEVEL 558 PG/ML (247-911)
== END ==
LOC: M LAB 17:52
PROVIDERS: ATTEND Student in an Organized Health Care Education/Training Program
DX: K86.1 Other chronic pancreatitis (principal); K59.1 Functional diarrhea; K21.9 Gastro-esophageal reflux disease without esophagitis; R16.0 Hepatomegaly, not elsewhere classified; Z80.0 Family history of malignant neoplasm of digestive organs; E55.9 Vitamin D deficiency, unspecified

== ENCOUNTER → 2023-10-19 | Outpatient (CLI) | payer BC, OTHER ==
[~2023-10-19] MED LIST changes: -CITA10TA5 PO; +CITA10TA7 PO
== END ==
LOC: M RAD 13:33
PROVIDERS: ATTEND Physician Assistant
DX: R06.02 Shortness of breath (principal)

== ENCOUNTER 2024-11-09 02:07 | Emergency (ER) | payer BC, OTHER ==
[~2024-11-09] VITALS: Ht 175.3 cm; Wt 109.9 kg
[~2024-11-09 02:07] MED LIST changes: +BYST1TAB2; -BYST5TAB2; -FLOM0.4C39 PO; +TAMS-18 PO
[2024-11-09 02:51] LABS: BASO # 0.1 10^3/uL (0.0-0.2); EOS # 0.3 10^3/uL (0.0-0.5); HEMATOCRIT 47.1 % (42.0-52.0); HEMOGLOBIN 16.7 g/dl (13.5-17.5); LYMPH # 2.7 10^3/uL (1.5-5.0); LYMPH % 39.7 % (24.0-44.0); MEAN CORPUSCULAR HEMOGLOBIN 31.2 pg (27.0-33.0); MEAN CORPUSCULAR HGB CONC 35.5 g/dl (32.0-36.5); MONO # 0.6 10^3/uL (0.0-0.8); MONO % 8.3 % (2.0-8.0); NEUTROPHILS # 3.1 10^3/uL (1.5-8.5); NEUTROPHILS % 44.8 % (36.0-66.0); PLATELET COUNT, AUTOMATED 219 10^3/uL (150-450); RED BLOOD COUNT 5.35 10^6/uL (4.30-6.10); WHITE BLOOD COUNT 6.9 10^3/uL (4.0-10.0)
[2024-11-09] MEDS: ONDANSETRON 4MG 2ML VIAL IV ONE (03:09)
[2024-11-09 03:10] LABS: INR 0.87; PARTIAL THROMBOPLASTIN TIME 21.8 SECONDS (24.8-34.2); PROTHROMBIN TIME 12.1 SECONDS (12.5-14.5)
[2024-11-09] MEDS: MORPHINE 4 MG/ML 1ML VIAL IV PRN (03:10)
[2024-11-09] MEDS: NS (Normal Saline) 0.9% 1,000 ML IV ONE (04:25)
[2024-11-09] MEDS: KETOROLAC 30 MG/ML 1ML VIAL IV ONE (04:41)
[2024-11-09 05:30] VITALS: BP 126/77; TEMP 98.1
[2024-11-09 05:37] VITALS: O2SAT 96
== END 2024-11-09 04:45 | disposition home or self-care (01) ==
LOC: M ED 02:07
DX: R51.9 Headache, unspecified (principal); I10 Essential (primary) hypertension; F10.10 Alcohol abuse, uncomplicated; Z79.1 Long term (current) use of non-steroidal anti-inflammatories (NSAID); Z79.899 Other long term (current) drug therapy
CPT/HCPCS: 70450; 80047; 85025; 85610; 85730; 96374; 96375; 99284; J1885; J2405

== ENCOUNTER 2025-04-11 20:17 | Emergency (ER) | payer OTHER, BC ==
[~2025-04-11] VITALS: Ht 172.7 cm; Wt 106.7 kg
[2025-04-11 20:20] VITALS: BP 133/79; TEMP 98.5; O2SAT 96
[2025-04-11] MEDS ORDERED: TRAM50TA2 PO (21:49)
[2025-04-11] MEDS ORDERED: PRED20TA PO (21:49)
[2025-04-11] MEDS: traMADol 50 MG TAB PO ONE (21:50)
== END 2025-04-11 22:27 | disposition home or self-care (01) ==
LOC: M ED 20:17
DX: M75.21 Bicipital tendinitis, right shoulder (principal); E78.5 Hyperlipidemia, unspecified; K21.9 Gastro-esophageal reflux disease without esophagitis; Z79.1 Long term (current) use of non-steroidal anti-inflammatories (NSAID); Z79.899 Other long term (current) drug therapy; Z79.52 Long term (current) use of systemic steroids